=== PATIENT | female | born 1990 | race Caucasian/White ===

== ENCOUNTER 2017-12-14 10:12 | Inpatient (IN) ==
[2017-12-14] MEDS: Sod Chloride 0.9% Inj 1,000 ML IV.CONT SCH ×2 (10:30→16:43)
--- NOTE | 2017-12-14 10:36 | CT ---
EXAM DATE: 12/14/2017 10:21 AM EDT AGE/SEX: 27 years / Female INDICATIONS: Trauma. Head injury. Altered mental status. Slurred speech. Left side paralysis. CLINICAL DATA: This is the patient's initial encounter. Patient reports that signs and symptoms have been present for 1 day and indicates a pain score of Nonresponsive. MEDICAL/SURGICAL HISTORY: None. None. RADIATION DOSE: 57.14 CTDI (mGy) COMPARISON: No prior exams available for comparison. TECHNIQUE: CT of the head without contrast. Using automated exposure control and adjustment of the mA and/or kV according to patient size, radiation dose was kept as low as reasonably achievable to ob tain optimal diagnostic quality images. DICOM format image data is available electronically for revi ew and comparison. FINDINGS: CSF spaces, ventricles and cisterns are of normal size and configuration. No signs of intracranial he morrhage or mass. Hyperdense right middle cerebral artery sign identified. No fractures. CONCLUSION: 1. Hyperdense right middle cerebral artery identified concerning for right MCA occlusion. Can be fur ther evaluated with CT angiography of the head without contrast. 2. No hemorrhage or mass. . Electronically signed by: Isaiah Odonnell MD 12/14/2017 10:35 AM EDT
[2017-12-14] MEDS ORDERED: Alteplase Bolus 9 MG/9 ML Syringe IV.PUSH ONE (10:53)
[2017-12-14] MEDS ORDERED: ALTEPLASE DRIP IV.SIG ONE (10:53)
[2017-12-14 10:55] LABS: Baso % (Auto) 0.4 % (0.0-2.0); Eos # (Auto) 0.1 th/mm3 (0.0-0.4); Eos % (Auto) 2.4 % (0.0-4.0); Hematocrit 41.1 % (35.0-46.0); Hemoglobin 13.9 gm/dL (11.6-15.3); Lymph # (Auto) 2.3 th/mm3 (1.0-4.8); Lymph % (Auto) 38.8 % (9.0-44.0); Mean Corpuscular HGB Conc 33.8 % (32.0-36.0); Mean Corpuscular Hemoglobin 31.8 pg (27.0-34.0); Mean Corpuscular Volume 94.1 fL (80.0-100.0); Mean Platelet Volume 8.6 fL (7.0-11.0); Mono # (Auto) 0.4 th/mm3 (0.0-0.9); Mono % (Auto) 7.1 % (0.0-8.0); Neut % (Auto) 51.3 % (16.0-70.0); Platelet Count 324 th/mm3 (150-450); Red Blood Count 4.37 mil/mm3 (4.00-5.30); White Blood Count 5.8 th/mm3 (4.0-11.0)
[2017-12-14 10:59] LABS: Chloride 108 meq/L (98-107); Potassium 3.4 meq/L (3.5-5.1); Sodium 141 meq/L (136-145)
[2017-12-14 11:02] LABS: Calcium 8.4 mg/dL (8.5-10.1)
[2017-12-14 11:03] LABS: Anion Gap 9 meq/L (5-15); Blood Urea Nitrogen 10 mg/dL (7-18); Carbon Dioxide 23.7 meq/L (21.0-32.0); Glucose,Random 104 mg/dL (74-106)
[2017-12-14 11:06] LABS: Glomerular Filtration Rate Greater Than 89 mL/min (>89)
[2017-12-14 11:19] LABS: Creatine Kinase 63 U/L (26-192)
--- NOTE | 2017-12-14 11:27 | ED ---
HPI General Chief Complaint: Stroke Alert Stated Complaint: Hit head/neuro symptoms Time Seen by Provider: 12/14/17 10:19 Source: patient Mode of arrival: wheelchair Limitations: language barrier History of Present Illness HPI Narrative: 27 y/o female presents through triage with her significant other who states that approximately 30 minutes prior to arrival he was in the other room when he heard a thump he came in the room and she said she had a headache and she was having weakness so he brought her here. She currently has weakness to the entire left side of her body and cannot provide me with significant history but does state that her head hurts a little bit. She denies prior history of this. Related Data Home Medications Medication Instructions Recorded Confirmed levothyroxine [Synthroid] 50 mcg PO DAILY 12/14/17 12/14/17 Allergies Allergy/AdvReac Type Severity Reaction Status Date / Time No Allergy Information Allergy Verified 12/14/17 11:45 Available Review of Systems ROS: all other systems reviewed are negative PMFSH History History Provided By: Patient (Patient notes hypothyroidism, denies possibility of ) Medical History Medical History Hypothyroid (Acute) Social History Social History Substance History: No History of Abuse Second Hand Smoke Exposure: No Smoking Status: Never smoker How Often Do You Have a Drink Containing Alcohol: 2 to 4 times a month Recent Travel in [facility] within the Last 8 Weeks: No Recent Out of Country Travel within the Last 8 Weeks: No Exam Narrative Exam Narrative: GENERAL: 27 y/o female who appears to have difficulty coming up with words SKIN: Focused skin assessment warm/dry. HEAD: Atraumatic. Normocephalic. EYES: Pupils equal and round. No scleral icterus. No injection or drainage. ENT: No nasal bleeding or discharge. Mucous membranes pink and moist. NECK: Trachea midline. No JVD. CARDIOVASCULAR: Regular rate and rhythm. No murmur appreciated. RESPIRATORY: No accessory muscle use. Clear to auscultation. Breath sounds equal bilaterally. GASTROINTESTINAL: Abdomen soft, non-tender, nondistended MUSCULOSKELETAL: No obvious deformities. No clubbing. No cyanosis. No edema. NEUROLOGICAL: Awake and alert to name. Slurred speech, left pronator drift, unable to lift left leg off the bed Course Reevaluation(s) Reevaluation #1: CT brain shows hyperdense right MCA so patient consented to TPA which was confirmed with language line and another line was placed for coordination of CTA to check for interventional measures. Patient updated and agrees to plan Reevaluation #2: On reassessment patient's weakness is improving. Her initial stroke scale was 11. Her weakness to her left arm and leg are nearly resolved. She still has facial droop noted and intermittent difficulty with her speech Reevaluation #3: patient updated and agrees to transfer for intervention. Neurologist at bedside while giving this update Additional Reevaluation(s): evac here 1222 Consultations Consultation #1: dr estrada agrees to stroke workup and close monitoring Consultation #2: dr estrada agrees to stroke alert and tpa given ct head Consultation #3: dr agarwal states it appears she has an occlusion of 1 of her branch vessels of her right MCA and he will have 1 of the interventional specialist call me Additional Consultation(s): dr gutierres with IR states to send patient straight there for evaluation for intervention will admit with the icu team Initial Documented Vital Signs Temperature 97.9 F 12/14/17 10:21 Pulse Rate 82 12/14/17 10:21 Respiratory Rate 16 12/14/17 10:21 Blood Pressure 108/57 L 12/14/17 10:21 Pulse Oximetry 100 12/14/17 10:21 Last Documented Vital Signs Temperature 97.9 F 12/14/17 12:10 Pulse Rate 82 12/14/17 12:10 Respiratory Rate 16 12/14/17 12:10 Blood Pressure 108/57 L 12/14/17 12:10 Pulse Oximetry 100 12/14/17 12:10 Critical Care Time Critical Care Time: Yes Total Critical Care Time: 55 Attestation: Aggregate critical care time was 55 minutes. Time to perform other separately billable procedures was not included in the critical care time. My time did not include minutes spent treating any other patients simultaneously or on activities that did not directly contribute to the patient's treatment. The services I provided to this patient were to treat and/or prevent clinically significant deterioration that could result in: Stroke, bleed, I provided critical care services requiring my management, as noted below: Chart data review, documentation time, medication orders and management, vital sign assessments/reviewing monitor data, ordering and reviewing lab tests, ordering and interpreting/reviewing x-rays and diagnostic studies, care of the patient and discussion of the patient with the admitting physicians. NIH Stroke Scale NIH Stroke Scale Level of Consciousness: 0-Alert Orientation Questions: 0-Answers both correct Responds to Commands: 0-Both tasks correct Gaze Eye Movement: 0-Horizontal movement WNL Visual Mendez: 0-No visual field defect Facial Movement: 1-Minor facial palsy Motor Functions Arm LEFT: 0-No drift Motor Functions Arm RIGHT: 0-No drift Motor Functions Leg LEFT: 0-No drift Motor Functions Leg RIGHT: 0-No drift Limb Ataxia: 0-No ataxia Sensory Loss: 0-No sensory loss Best Language: 0-Normal Articulation: 0-Normal Extinction or Inattention Sensory: 0-Absent Total: 1 Medical Decision Making MDM Narrative Medical decision making narrative: Discussed with neurologist on-call and will check CT brain stat as well as CTAs and closely monitor Medical Screen Exam Complete: Yes Emergency Medical Condition: Yes Differential Diagnosis Differential Diagnosis: Subdural, Reuben's paralysis, stroke, bleed Lab Data Lab results reviewed: Yes I reviewed the patient's lab results. Result diagrams: 12/14/17 10:44 12/14/17 10:44 Lab Results 12/14/17 12/14/17 12/14/17 Range/Units 10:40 10:44 10:44 CBC w Diff Auto diff final WBC 5.8 (4.0-11.0) th/mm3 RBC 4.37 (4.00-5.30) mil/mm3 Hgb 13.9 (11.6-15.3) gm/dL Hct 41.1 (35.0-46.0) % MCV 94.1 (80.0-100.0) fL MCH 31.8 (27.0-34.0) pg MCHC 33.8 (32.0-36.0) % RDW 12.0 (11.6-17.2) % Plt Count 324 (150-450) th/mm3 MPV 8.6 (7.0-11.0) fL Neut % (Auto) 51.3 (16.0-70.0) % Lymph % (Auto) 38.8 (9.0-44.0) % [place] % (Auto) 7.1 (0.0-8.0) % Eos % (Auto) 2.4 (0.0-4.0) % Baso % (Auto) 0.4 (0.0-2.0) % Neut # (Auto) 3.0 (1.8-7.7) th/mm3 Lymph # (Auto) 2.3 (1.0-4.8) th/mm3 [place] # (Auto) 0.4 (0.0-0.9) th/mm3 Eos # (Auto) 0.1 (0.0-0.4) th/mm3 Baso # (Auto) 0.0 (0.0-0.2) th/mm3 WBC Differential . Differential Comment . Sodium 141 (136-145) meq/L Potassium 3.4 L (3.5-5.1) meq/L Chloride 108 H (98-107) meq/L Carbon Dioxide 23.7 (21.0-32.0) meq/L Anion Gap 9 (5-15) meq/L BUN 10 (7-18) mg/dL Creatinine 0.73 (0.50-1.00) mg/dL Estimated GFR Greater than 89 (>89) mL/min POC Glucose 108 (68-110) mg/dl Random Glucose 104 (74-106) mg/dL Calcium 8.4 L (8.5-10.1) mg/dL Total Creatine Kinase 63 (26-192) U/L Troponin I Less than 0.02 L (0.02-0.05) ng/mL TSH (0.358-3.740) uIU/mL Beta HCG, Quant Less than 1 (0-5) mIU/mL Serum Alcohol (0-5) mg/dL Blood Type Blood Type Recheck 12/14/17 12/14/17 Range/Units 10:44 10:44 CBC w Diff WBC (4.0-11.0) th/mm3 RBC (4.00-5.30) mil/mm3 Hgb (11.6-15.3) gm/dL Hct (35.0-46.0) % MCV (80.0-100.0) fL MCH (27.0-34.0) pg MCHC (32.0-36.0) % RDW (11.6-17.2) % Plt Count (150-450) th/mm3 MPV (7.0-11.0) fL Neut % (Auto) (16.0-70.0) % Lymph % (Auto) (9.0-44.0) % [place] % (Auto) (0.0-8.0) % Eos % (Auto) (0.0-4.0) % Baso % (Auto) (0.0-2.0) % Neut # (Auto) (1.8-7.7) th/mm3 Lymph # (Auto) (1.0-4.8) th/mm3 [place] # (Auto) (0.0-0.9) th/mm3 Eos # (Auto) (0.0-0.4) th/mm3 Baso # (Auto) (0.0-0.2) th/mm3 WBC Differential Differential Comment Sodium (136-145) meq/L Potassium (3.5-5.1) meq/L Chloride (98-107) meq/L Carbon Dioxide (21.0-32.0) meq/L Anion Gap (5-15) meq/L BUN (7-18) mg/dL Creatinine (0.50-1.00) mg/dL Estimated GFR (>89) mL/min POC Glucose (68-110) mg/dl Random Glucose (74-106) mg/dL Calcium (8.5-10.1) mg/dL Total Creatine Kinase (26-192) U/L Troponin I (0.02-0.05) ng/mL TSH 1.460 (0.358-3.740) uIU/mL Beta HCG, Quant (0-5) mIU/mL Serum Alcohol Less than 3 (0-5) mg/dL Blood Type A Negative Blood Type Recheck Required Imaging Data Attestation: I personally reviewed and interpreted this imaging study as follows : Radiologist's impression: Head CT 12/14/17 10:20 CONCLUSION: 1. Hyperdense right middle cerebral artery identified concerning for right MCA occlusion. Can be further evaluated with CT angiography of the head without contrast. 2. No hemorrhage or mass. . Chest X-Ray 12/14/17 10:21 CONCLUSION: Negative examination. Head CTA 12/14/17 10:21 CONCLUSION: Abrupt occlusion of proximal right MCA branch which does appear amenable to intra-arterial stroke treatment if clinically appropriate. Neck CTA 12/14/17 10:21 CONCLUSION: Negative CTA Carotid. Discharge Plan Discharge Disposition Patient Disposition: 30 Still Patient Discharge Details Diagnosis: Stroke Physicians Team ED Provider: Livier Alvares Primary Care Provider: NON STAFF,PROVIDER Other Providers: Glenn Estrada Rxs /Orders / Referrals /Forms Prescriptions: No Action levothyroxine [Synthroid] 50 mcg Tablet 50 mcg PO DAILY RF: 0 Status ED Status: Admitted Patient
--- NOTE | 2017-12-14 11:49 | CT ---
EXAM DATE: 12/14/2017 11:11 AM EDT AGE/SEX: 27 years / Female INDICATIONS: Stroke alert. Fell and hit head. Altered mental status. Left side paralysis. CLINICAL DATA: This is the patient's initial encounter. Patient reports that signs and symptoms have been present for 1 day and indicates a pain score of Nonresponsive. MEDICAL/SURGICAL HISTORY: None. None. RADIATION DOSE: 42.20 CTDI (mGy) ; Combined studies COMPARISON: HPO, CT HEAD W/O CONTRAST, 12/14/2017. . TECHNIQUE: Volumetric scanning was performed using a multi-row detector CT scanner during bolus infu samir of 100 ml Visipaque 320 (iodixanol) nonionic water-soluble contrast as a cumulative dose for mu ltiple exams. The data was post processed with a variety of visualization algorithms including full volume maximum intensity projection, multi-planar sliding thin slab reformation, curved planar refor mation, and surface rendering techniques. Using automated exposure control and adjustment of the mA and/or kV according to patient size, radiation dose was kept as low as reasonably achievable to obtai n optimal diagnostic quality images. DICOM format image data is available electronically for review and comparison. FINDINGS: There is abrupt amputation of an anterior sylvian branch of the right MCA just beyond the MCA bifurca tion. The contralateral left MCA is normal. The anterior cerebrals are intact and unremarkable. The p osterior circulation vessels are intact. CONCLUSION: Abrupt occlusion of proximal right MCA branch which does appear amenable to intra-arterial stroke eloisa atment if clinically appropriate. Electronically signed by: Manny Clark MD 12/14/2017 11:48 AM EDT
--- NOTE | 2017-12-14 11:49 | XR ---
EXAM DATE: 12/14/2017 10:21 AM EDT AGE/SEX: 27 years / Female INDICATIONS: Stroke alert, neuor symptoms, trauma to head. CLINICAL DATA: This is the patient's initial encounter. Patient reports that signs and symptoms have been present for 1 day and indicates a pain score of Nonresponsive. MEDICAL/SURGICAL HISTORY: Non-responsive. Non-responsive. COMPARISON: No prior exams available for comparison. FINDINGS: A single AP view of the chest demonstrates the lungs to be symmetrically aerated without evidence of mass, infiltrate or effusion. The cardiomediastinal contours are unremarkable. Osseous structures a re intact. CONCLUSION: Negative examination. Electronically signed by: Manny Calrk MD 12/14/2017 11:48 AM EDT
--- NOTE | 2017-12-14 11:56 | CT ---
EXAM DATE: 12/14/2017 11:11 AM EDT AGE/SEX: 27 years / Female INDICATIONS: Stroke alert. Fell and hit head. Altered mental status. Left side paralysis. CLINICAL DATA: This is the patient's initial encounter. Patient reports that signs and symptoms have been present for 1 day and indicates a pain score of Nonresponsive. MEDICAL/SURGICAL HISTORY: None. None. RADIATION DOSE: 42.20 CTDI (mGy) ; Combined studies COMPARISON: No prior exams available for comparison. TECHNIQUE: Volumetric scanning was performed using a multirow detector CT scanner during bolus infus ion of 100 ml Visipaque 320 (iodixanol) nonionic water-soluble contrast as a cumulative dose for mul tiple exams. The data was postprocessed with a variety of visualization algorithms including full-v olume maximum intensity projection, multiplanar sliding thin-slab reformation, curved-planar reformat ion, and surface-rendering techniques. Using automated exposure control and adjustment of the mA and /or kV according to patient size, radiation dose was kept as low as reasonably achievable to obtain o ptimal diagnostic quality images. DICOM format image data is available electronically for review and comparison. Percent stenosis is calculated using the diameter of the stenotic region over the diameter of the nor mal distal internal carotid artery. FINDINGS: Aortic Arch: There is a three-vessel origin of the great vessels from the aorta. No evidence of ost ial narrowing Right Carotid: The common carotid artery is intact. The carotid bulb has a normal configuration wit hout ulceration or narrowing. The internal carotid artery lumen is smooth without stenosis. The ext ernal carotid artery is intact. Left Carotid: The common carotid artery is intact. The carotid bulb has a normal configuration with out ulceration or narrowing. The internal carotid artery lumen is smooth without stenosis. The exte rnal carotid artery is intact. Vertebrals: The vertebral arteries have a symmetric diameter. No stenotic lesions are seen. CONCLUSION: Negative CTA Carotid. Electronically signed by: Manny Clark MD 12/14/2017 11:55 AM EDT
[2017-12-14 12:27] LABS: Activated Partial Thrombo Time 26.9 sec (24.3-30.1); Prothrombin Time 10.1 sec (9.8-11.6)
[2017-12-14 12:31] LABS: Albumin 3.3 g/dL (3.4-5.0)
[2017-12-14 12:35] LABS: Total Protein 7.3 g/dL (6.4-8.2)
[2017-12-14] MEDS ORDERED: Succinylcholine Inj 100 MG/5 ML Syringe IV.PUSH ONE (13:12)
[2017-12-14] MEDS ORDERED: Glycopyrrolate Inj 1 MG/5 ML Syringe IV.PUSH ONE (13:12)
[2017-12-14] MEDS ORDERED: Phenylephrine/NS 1000 MCG/10ML Syringe IV.PUSH ONE (13:12)
[2017-12-14] MEDS ORDERED: Lidocaine PF 1% Inj 5 ML Syringe OTHER ONE (13:12)
[2017-12-14] MEDS ORDERED: Neostigmine Inj 5 MG/5 ML Syringe IV.PUSH ONE (13:12)
--- NOTE | 2017-12-14 13:12 | P.CONNEU ---
History of Present Illness Service: Neurology Primary Care Provider: PROVIDER NON STAFF Chief Complaint: Weakness History of Present Illness: 27-year-old female brought in by her for left-sided weakness. She woke up normal state of health's texting a friend was in the kitchen when suddenly she went down and fell. He noticed left-sided weakness. He brought in for further evaluation. Her symptom onset was approximately 30 minutes prior to arrival. She had a CT brain scan performed which suggested a right hyperdense MCA sign. Case discussed with ER physician. She does not have left hemiparesis, left facial droop slurred speech in the ER. IV TPA was discussed with the spouse and patient they agree with treatment. No history of stroke or TIA. No history of clotting disorder. She does take oral contraceptive pills. Review of Systems All other systems reviewed negative except as stated in HPI PMFSH - History History Provided By: Patient (Patient notes hypothyroidism, denies possibility of ) - Medical History Medical History: Medical History (Last Updated 12/14/17 @ 11:59 by Marlene Zelaya RN) Hypothyroid - Tobacco History Second Hand Smoke Exposure: No Smoking Status: Never smoker - Alcohol History How Often Do You Have a Drink Containing Alcohol: 2 to 4 times a month - Substance Use History Substance History: No History of Abuse - Travel History Recent Travel in the [place] Within the Last 8 Weeks: No Recent Travel Out of the Country Within the Last 8 Weeks: No - Immunization History Tetanus Immunization: Unsure Medications and Allergies Active Medications: Active Medications Sodium Chloride (Ns Inj) 1,000 mls @ 70 mls/hr IV.CONT .[id number] MARKO Allergies Allergy/AdvReac Type Severity Reaction Status Date / Time No Allergy Information Allergy Verified 12/14/17 11:45 Available Home Medications Medication Instructions Recorded Confirmed Type levothyroxine [Synthroid] 50 mcg PO DAILY 12/14/17 12/14/17 History Exam Vital signs: Vital Signs 12/14/17 10:21 12/14/17 10:53 12/14/17 12:10 Temperature 97.9 F 97.9 F Pulse Rate 82 82 Respiratory Rate 16 16 Blood Pressure 108/57 L 108/57 L Pulse Oximetry 100 100 100 Intake & Output 12/13/17 12/14/17 12/14/17 18:59 06:59 18:59 Weight 78 kg Narrative: GENERAL: in NAD, SKIN: Warm and dry. HEAD: Atraumatic. Normocephalic. EYES: Pupils equal and round. No scleral icterus. ENT: No nasal bleeding or discharge. Mucous membranes pink and moist. NECK: Trachea midline. No JVD. CARDIOVASCULAR: Regular rate and rhythm. RESPIRATORY: No accessory muscle use. GASTROINTESTINAL: Abdomen soft, non-tender, nondistended. MUSCULOSKELETAL: Extremities without clubbing, cyanosis, or edema. No obvious deformities. NEUROLOGICAL: Awake and alert. Has been receiving IV TPA. Is now more alert dysarthric speech, able to follow motor request pleasant appropriate, slightly reduced left nasolabial fold, able raise her left arm and leg to gravity no drift in the arms slightly in the leg with slight left-sided dystaxia. Slight reduced pinprick left face and arm when compared to the right side, no obvious left-sided neglect. Gait not assessed secondary fall risk. PSYCHIATRIC: Calm - Constitutional no acute distress - Routine HEENT Exam Head: Present: normocephalic Results - Labs CBC & Chem 7: 12/14/17 10:44 12/14/17 10:44 Labs: Laboratory Results - last 24 hr 12/14/17 12/14/17 12/14/17 10:40 10:44 10:44 CBC w Diff Auto diff final WBC 5.8 RBC 4.37 Hgb 13.9 Hct 41.1 MCV 94.1 MCH 31.8 MCHC 33.8 RDW 12.0 Plt Count 324 MPV 8.6 Neut % (Auto) 51.3 Lymph % (Auto) 38.8 [place] % (Auto) 7.1 Eos % (Auto) 2.4 Baso % (Auto) 0.4 Neut # (Auto) 3.0 Lymph # (Auto) 2.3 [place] # (Auto) 0.4 Eos # (Auto) 0.1 Baso # (Auto) 0.0 WBC Differential . Differential Comment . PT 10.1 INR 1.0 APTT 26.9 Fibrinogen 318 Sodium Potassium Chloride Carbon Dioxide Anion Gap BUN Creatinine Estimated GFR POC Glucose 108 Random Glucose Calcium Total Bilirubin Direct Bilirubin Indirect Bilirubin AST ALT Alkaline Phosphatase Total Creatine Kinase Troponin I Total Protein Albumin TSH Beta HCG, Quant Serum Alcohol Blood Type Blood Type Recheck Antibody Screen 12/14/17 12/14/17 12/14/17 10:44 10:44 10:44 CBC w Diff WBC RBC Hgb Hct MCV MCH MCHC RDW Plt Count MPV Neut % (Auto) Lymph % (Auto) [place] % (Auto) Eos % (Auto) Baso % (Auto) Neut # (Auto) Lymph # (Auto) [place] # (Auto) Eos # (Auto) Baso # (Auto) WBC Differential Differential Comment PT INR APTT Fibrinogen Sodium 141 Potassium 3.4 L Chloride 108 H Carbon Dioxide 23.7 Anion Gap 9 BUN 10 Creatinine 0.73 Estimated GFR Greater than 89 POC Glucose Random Glucose 104 Calcium 8.4 L Total Bilirubin Direct Bilirubin Indirect Bilirubin AST ALT Alkaline Phosphatase Total Creatine Kinase 63 Troponin I Less than 0.02 L Total Protein Albumin TSH 1.460 Beta HCG, Quant Less than 1 Serum Alcohol Less than 3 Blood Type A Negative Blood Type Recheck Required Antibody Screen Negative 12/14/17 10:44 CBC w Diff WBC RBC Hgb Hct MCV MCH MCHC RDW Plt Count MPV Neut % (Auto) Lymph % (Auto) [place] % (Auto) Eos % (Auto) Baso % (Auto) Neut # (Auto) Lymph # (Auto) [place] # (Auto) Eos # (Auto) Baso # (Auto) WBC Differential Differential Comment PT INR APTT Fibrinogen Sodium Potassium Chloride Carbon Dioxide Anion Gap BUN Creatinine Estimated GFR POC Glucose Random Glucose Calcium Total Bilirubin 0.3 Direct Bilirubin 0.1 Indirect Bilirubin 0.2 AST 19 ALT 16 Alkaline Phosphatase 50 Total Creatine Kinase Troponin I Total Protein 7.3 Albumin 3.3 L TSH Beta HCG, Quant Serum Alcohol Blood Type Blood Type Recheck Antibody Screen - Imaging Impressions Head CT 12/14/17 10:20 CONCLUSION: 1. Hyperdense right middle cerebral artery identified concerning for right MCA occlusion. Can be further evaluated with CT angiography of the head without contrast. 2. No hemorrhage or mass. . Chest X-Ray 12/14/17 10:21 CONCLUSION: Negative examination. Head CTA 12/14/17 10:21 CONCLUSION: Abrupt occlusion of proximal right MCA branch which does appear amenable to intra-arterial stroke treatment if clinically appropriate. Neck CTA 12/14/17 10:21 CONCLUSION: Negative CTA Carotid. Review/Management - Diagnosis (1) Acute right MCA stroke Code(s): I63.511 - Cerebral infarction due to unspecified occlusion or stenosis of right middle cerebral artery Status: Acute Current Visit: Yes - Review/Management Plan: Acute right MCA stroke secondary to right MCA branch occlusion Risk factors include oral contraceptive use, may have an underlying hypercoagulable state versus cardiac defect And a stroke scale score 11 down to approximately 5 at present Recommendation She is being given IV TPA Case discussed with interventional radiology. Case discussed with patient and her spouse they would like full intervention performed as she is still not at her baseline they understand the risks and benefits of the procedures including bleeding, , worsening stroke function, etc. IV fluids Post TPA order set Blood pressure less than 180/100 at all times No blood thinners for at least 24 hours after intervention SCDs MRI, brain Echo Lipid, TSH, B12, HbA1c Therapy Telemetry Heme evaluation to exclude hypercoagulable state Cardiology evaluation for GELY, event monitor
[2017-12-14] MEDS ORDERED: Bisacodyl 10 MG Supp RECTAL PRN (13:34)
[2017-12-14] MEDS ORDERED: Labetalol HCl Inj 100 MG/20 ML Vial IV.PUSH PRN (13:36)
[2017-12-14] MEDS ORDERED: Heparin 10,000 UNITS/10 ML Vial (for IV use) ONE (14:31)
--- NOTE | 2017-12-14 14:46 | P.RAD ---
Post Procedure Progress Note - Pre Procedure Diagnosis (1) Acute right MCA stroke - Post Procedure Diagnosis (1) Acute right MCA stroke - Procedure Information Procedure Date: 12/14/17 Supervising Radiologist: Moi Barillas Jr, MD Estimated blood loss (mL): 10 Anesthesia: General - Plan of Activity Patient to Unit: PACU Patient Condition: Good See PACS Report for procedural detail/treatment. Vascular - Arterial Procedure right Cerebral Procedure: Angiogram, Embolectomy - Additional Information Findings: Acute occlusion of prox right M2 branch. Successful clot extraction with re- established flow thru the previously occluded [place] branch of right MCA. Plan: To unit for close observation.
[2017-12-14 15:07] LABS: Vitamin B12 407 pg/mL (193-986)
[2017-12-14 15:50] LABS: C-Reactive Protein 0.55 mg/dL (0.00-0.30)
--- NOTE | 2017-12-14 16:24 | P.HPCC ---
History of Present Illness Service: Critical care medicine Primary Care Physician: PROVIDER NON STAFF Chief Complaint: Weakness History of Present Illness: 27-year-old female who was brought to the ER at [place] by her with a history of headache and weakness involving the left side of her body about 30 minutes prior to arrival. Patient was diagnosed to have an ischemic stroke. Head CT was negative for bleed. CTA brain showed occluded right MCA. Stroke alert was called patient received IV TPA after discussion with Dr. Peter from neurology and was immediately transferred to the [facility] for IR intervention. In IR, patient underwent cerebral angiography and was found to have acute occlusion of prox right M2 branch. Successful clot extraction with re -established flow thru the previously occluded Chintan branch of right MCA. She was intubated for the procedure and was subsequently extubated successfully and transferred to PACU where I evaluated her following her arrival. At the time of my evaluation patient was awake and alert could give me her name and knew she that she was and knew the year 2017. She was following commands moving all 4 extremities with minimal weakness involving left upper and lower extremity. Patient reportedly is on oral contraceptive pills for the last 2 years per my discussion with patient's . She is also hypothyroid. Inpatient Certification: I certify that the inpatient services were ordered in accordance with Medicare regulations governing the order. This includes certification that hospital inpatient services are reasonable and necessary and in the case of services not specified as inpatient-only under 42 CFR 419.22(n), that they are appropriately provided as inpatient services in accordance to with the 2-midnight benchmark under 43 CFR 412.3(e) Estimated Total Length of Stay (Days): 4 Plans for Post Hospital Care: Not yet determined Review of Systems All other systems reviewed negative except as stated in HPI [facility] - History History Provided By: Patient (Patient notes hypothyroidism, denies possibility of ) - Medical History Medical History: Medical History (Last Updated 12/14/17 @ 11:59 by Marlene Zelaya RN) Hypothyroid - Tobacco History Second Hand Smoke Exposure: No Smoking Status: Never smoker - Alcohol History How Often Do You Have a Drink Containing Alcohol: 2 to 4 times a month - Substance Use History Substance History: No History of Abuse - Travel History Recent Travel in the [place] Within the Last 8 Weeks: No Recent Travel Out of the Country Within the Last 8 Weeks: No - Immunization History Tetanus Immunization: Unsure Medications and Allergies Active Medications: Active Medications Acetaminophen (Tylenol) 650 mg PO Q6H PRN PRN Reason: PAIN 1-10 AND/OR FEVER >101F Al Hydroxide/Mg Hydroxide (Milk Of Magnesia Liq) 30 ml PO Q12H PRN PRN Reason: Mild Constipation Albuterol (Duoneb Neb (Prn)) 1 ampul NEB Q2HR NEB PRN PRN Reason: WHEEZING Bisacodyl (Dulcolax Supp) 10 mg RECTAL DAILY PRN PRN Reason: SEVERE CONSITIPATION Chlorhexidine Gluconate (Chlorhexidine 2% Cloth) 3 pack TOPICAL DAILY@0400 MARKO Stop: 12/20/17 03:59 Chlorhexidine Gluconate (Chlorhexidine 2% Cloth) 3 pack TOPICAL DAILY@0400 PRN PRN Reason: Extra cloth needed Stop: 12/20/17 03:59 Famotidine (Pepcid Pf Inj) 20 mg IV.PUSH Q12HR MARKO Sodium Chloride (Ns Inj) 1,000 mls @ 70 mls/hr IV.CONT .[id number] [facility] Last Infusion: 12/14/17 12:30 Dose: Infused Labetalol HCl (Trandate Inj) 10 mg IV.PUSH Q4H PRN PRN Reason: SBP> OR = 180, DBP> OR = 100 Lactulose (Lactulose Liq) 30 ml PO DAILY PRN PRN Reason: SEVERE CONSITIPATION Ondansetron HCl (Zofran Inj) 4 mg IV.PUSH Q6H PRN PRN Reason: NAUSEA OR VOMITING Senna/Docusate Sodium (Khadra-Colace) 1 tab PO BID [facility] Sennosides (Senokot) 17.2 mg PO Q12H PRN PRN Reason: Moderate Constipation Sodium Chloride (Ns Flush) 2 ml IV.FLUSH BID MARKO Sodium Chloride (Ns Flush) 2 ml IV.FLUSH PRN PRN PRN Reason: FLUSH AFTER USING IV ACCESS Allergies Allergy/AdvReac Type Severity Reaction Status Date / Time No Allergy Information Allergy Verified 12/14/17 11:45 Available Home Medications Medication Instructions Recorded Confirmed Type levothyroxine [Synthroid] 50 mcg PO DAILY 12/14/17 12/14/17 History Results - Labs CBC & Chem 7: 12/14/17 10:44 12/14/17 10:44 Labs: Short CBC 12/14/17 Range/Units 10:44 WBC 5.8 (4.0-11.0) th/mm3 Hgb 13.9 (11.6-15.3) gm/dL Hct 41.1 (35.0-46.0) % Plt Count 324 (150-450) th/mm3 BMP 12/14/17 10:44 Sodium 141 Potassium 3.4 L Chloride 108 H Carbon Dioxide 23.7 BUN 10 Creatinine 0.73 Calcium 8.4 L Cardiac Enzymes 12/14/17 Range/Units 10:44 Total Creatine Kinase 63 (26-192) U/L Troponin I Less than 0.02 L (0.02-0.05) ng/mL Liver Function 12/14/17 Range/Units 10:44 Total Bilirubin 0.3 (0.2-1.0) mg/dL Direct Bilirubin 0.1 (0.0-0.2) mg/dL AST 19 (15-37) U/L ALT 16 (10-53) U/L Alkaline Phosphatase 50 (45-117) U/L Albumin 3.3 L (3.4-5.0) g/dL - Imaging Impressions Head CT 12/14/17 10:20 CONCLUSION: 1. Hyperdense right middle cerebral artery identified concerning for right MCA occlusion. Can be further evaluated with CT angiography of the head without contrast. 2. No hemorrhage or mass. . Chest X-Ray 12/14/17 10:21 CONCLUSION: Negative examination. Head CTA 12/14/17 10:21 CONCLUSION: Abrupt occlusion of proximal right MCA branch which does appear amenable to intra-arterial stroke treatment if clinically appropriate. Neck CTA 12/14/17 10:21 CONCLUSION: Negative CTA Carotid. Exam Vital signs: Vital Signs 12/14/17 10:21 12/14/17 10:53 12/14/17 12:10 Temperature 97.9 F 97.9 F Pulse Rate 82 82 Respiratory Rate 16 16 Blood Pressure 108/57 L 108/57 L Pulse Oximetry 100 100 100 Intake & Output 12/13/17 12/14/17 12/14/17 18:59 06:59 18:59 Intake Total 195 / 195 Balance 195 / 195 Weight 78 kg Intake: IV 195 / 195 NS Inj 1,000 ML @ 70 mls/hr IV. 140 / 140 CONT .[id number] [facility] Rx#: [id number] Activase Drip 55 MG In Bag/ 55 / 55 Syringe 1 EACH @ 55 mls/hr IV. SIG ONCE ONE Rx#:[id number] Narrative: HEENT/Neuro: No pallor or icterus, tongue moist, ALLEN, Awake alert oriented 3 , moving all 4 extremities, grade 4 power in left upper and lower extremity. Neck: No JVD Chest/pulmonary: CTA bilaterally Cardiovascular: S1-S2 regular no gallop or murmur GI/abdomen: Soft, nontender, bowel sounds present Extremities: Warm bilaterally, no edema Caprini VTE Risk Assessment Caprini VTE Risk Assessment: Moderate/High Risk (score >= 2) Caprini Risk Assessment Model: Point Value = 1 Point Value = 2 Point Value = 3 Point Value = 5 Age 41-60 Minor surgery BMI > 25 kg/m2 Swollen legs Varicose veins or History of unexplained or recurrent spontaneous Oral contraceptives or hormone replacement Sepsis (< 1 month) Serious lung disease, including pneumonia (< 1 month) Abnormal pulmonary function Acute myocardial infarction Congestive heart failure (< 1 month) History of inflammatory bowel disease Medical patient at bed rest Age 61-74 Arthroscopic surgery Major open surgery (> 45 min) Laparoscopic surgery (> 45 min) Malignancy Confined to bed (> 72 hours) Immobilizing plaster cast Central venous access Age >= 75 History of VTE Family history of VTE Factor V Leiden Prothrombin [id number] Lupus anticoagulant Anticardiolipin antibodies Elevated serum homocysteine Heparin-induced thrombocytopenia Other congenital or acquired thrombophilia Stroke (< 1 month) Elective arthroplasty Hip, pelvis, or leg fracture Acute spinal cord injury (< 1 month) Prophylaxis Regimen: Total Risk Factor Score Risk Level Prophylaxis Regimen 0-1 Low Early ambulation 2 Moderate Order ONE of the following: *Sequential Compression Device (SCD) *Heparin 5000 units SQ BID 3-4 Higher Order ONE of the following medications: *Heparin 5000 units SQ TID *Enoxaparin/Lovenox 40 mg SQ daily (WT < 150 kg, CrCl > 30 mL/min) *Enoxaparin/Lovenox 30 mg SQ daily (WT < 150 kg, CrCl > 10-29 mL/min) *Enoxaparin/Lovenox 30 mg SQ BID (WT < 150 kg, CrCl > 30 mL/min) AND/OR *Sequential Compression Device (SCD) 5 or more Highest Order ONE of the following medications: *Heparin 5000 units SQ TID (Preferred with Epidurals) *Enoxaparin/Lovenox 40 mg SQ daily (WT < 150 kg, CrCl > 30 mL/min) *Enoxaparin/Lovenox 30 mg SQ daily (WT < 150 kg, CrCl > 10-29 mL/min) *Enoxaparin/Lovenox 30 mg SQ BID (WT < 150 kg, CrCl > 30 mL/min) AND *Sequential Compression Device (SCD) Assessment and Plan - Assessment and Plan Plan: 27-year-old female with: Ischemic stroke involving right MCA territory status post systemic TPA followed by embolectomy right MCA Hypothyroidism Plan: Neuro: Neuro checks per protocol. Stroke alert status mood systolic TPA followed by angioplasty and embolectomy right MCA territory. Neurology following. Stroke workup per neurology. Thromboembolic event possibly related to OCP use. Cardiology consulted for further evaluation including echo for PFO eval, possible GELY. -We will obtain lower extremity venous Dopplers to evaluate for DVT. Cardiovascular: Hemodynamic monitoring. Keep SBP below 180/100 with labetalol as needed. IV hydration Pulmonary: Supplemental O2, bronchodilators as needed. GI/liver: N.p.o. for now. Speech swallow eval per stroke protocol. Renal/: IV hydration, strict intake output, monitor and replete electrolytes, follow BUN/creatinine. ID: No indication for antibiotics at this time. Endocrine: Watch for hypoglycemia, SSI for glycemic control if needed. Continue home dose of Synthroid. Heme: Follow CBC and coags. Hematology consult for hypercoagulable workup. Thromboembolic event possibly related to OCP use. Keep off oral contraceptives/ Prophylaxis: Pepcid/SCDs. Subcu Lovenox started tomorrow if okay with neurology.
--- NOTE | 2017-12-14 16:46 | IR ---
EXAM DATE: 12/14/2017 11:43 AM EDT AGE/SEX: 27 years / Female INDICATIONS: Patient presents as stroke alert in need of cerebral angiogram with possible intracrani al thrombectomy. CLINICAL DATA: This is the patient's initial encounter. Patient reports that signs and symptoms have been present for 1 day and indicates a pain score of 0/10. MEDICAL/SURGICAL HISTORY: . Unobtainable. . Unobtainable. Patient is confused. Reduced motor f unction involving the left upper extremity. COMPARISON: . FLUORO TIME (min): 13.8 IMAGE SERIES: 18 ACCESS SITE: Right femoral artery CONTRAST (cc): 65 cc Visipaque (iodixanol) MEDICATION(S): 2,000 units Heparin IV 4 mg Zofran Anesthesia and pain control was provided by the Anesthesia department. DEVICE(S): Right common femoral artery Angio-Seal 8fr Right artery mechanical thrombectomy MCA PAUL 60 Right artery MCA Solitaire 06/15 . . TIMELINE: Interventional Team Called: 11:50 Interventional Team Arrived: Interventional Team Ready 11:55 Patient Arrival: 12:55 Groin Puncture: 13:21 Recanalization: 14:19 PROCEDURE : 1. Ultrasound-guided puncture of the access site. 2. Angiography of the access site prior to closure device. 3. Conscious sedation with continuous EKG and Oximetry monitoring. 4. Percutaneous closure of the access site. 5. Angiography of the right internal carotid artery 6. Angiography of the M2 sylvian branch of the right MCA 7. Embolectomy of the M2 sylvian branch of the right MCA. The risks, benefits and alternatives to the procedure were explained and verbal and written consent w as obtained. The site was prepped in sterile fashion. Full sterile technique was used, including cap, mask, sterile gloves and gown and a large sterile sheet. Hand hygiene and 2% chlorhexidine and/or be tadine/alcohol prep was utilized per protocol for cutaneous antisepsis. The skin and subcutaneous tis sues were infiltrated with local anesthetic solution. Sterile gel and sterile probe cover were utili zed for ultrasound guidance. With ultrasound and fluoroscopic guidance the selected artery was punctured and a vascular sheath was placed. Angiography of the common femoral artery was performed for evaluation prior to percutaneous closure device placement. A diagnostic catheter was placed into the right internal carotid artery and angiography was performed over the head to confirm vessel occlusion. These diagnostic images show a patent M1 on the right wit h complete occlusion of the sylvian branch of the M2 on the right. Subsequent to this a guidewire was placed into the distal cervical internal carotid artery and a guide catheter was placed to the level of the skull base. A solitaire atherectomy device was needed to anchor the wire to allow passage of the embolectomy catheter to the face of the clot. Suction was performed for 90 seconds. With suction still applied the catheter was removed in one piece. Followup angiography demonstrates lack of of flow with TICI 0 flow. Thrombus also fell into the dist al M1 branch occluding the majority of the middle cerebral territory. As thrombus persisted the large bore microcatheter was again advanced to the face of the clot over a guidewire. The microcatheter and wire were passed through the thrombus distally and the guidewire was exchanged for the prescribed Solitaire device. The device was unsheathed and left in place for 5 min utes. Following this suction was applied and the microcatheter and Solitaire device were removed as a unit. Followup angiography demonstrates taoism of flow with TICI grade 3 flow. Hemostasis was obtained with the prescribed medicated closure device. Conscious sedation was performe d with the prescribed dosages and duration as above. EKG and oximetry remained stable throughout the procedure. The patient was sent to post anesthesia recovery in stable condition. CONCLUSION: 1. Cerebral angiography confirms complete occlusion of an M2 branch of the right MCA territory. Comp lete taoism of flow through this vessel following suction thrombectomy. TICI grade 3. Electronically signed by: Moi Barillas MD 12/14/2017 4:45 PM EDT
[2017-12-14] MEDS: Acetaminophen 325 MG Tablet PO PRN ×2 (18:04→23:46)
--- NOTE | 2017-12-14 18:17 | P.CONCA ---
History of Present Illness Service: Cardiology Consult date: 12/14/17 Requesting Physician: Glenn Peter Reason for Consult: GELY, event monitoring. Young onset stroke Primary Care Provider: PROVIDER NON STAFF Chief Complaint: Weakness History of Present Illness: This is a very pleasant 27-year-old female who was brought into the emergency department by her with a history of headache and weakness involving left side of her body that started approximately 30 minutes prior to arrival. CT of the brain showed occluded right MCA and stroke alert was called. TPA was administered per Dr. Peter from neurology. IR intervention, cerebral angiogram was performed and she was found to have an acute occlusion of proximal right M2 branch. Clot extraction was successful and flow was reestablished to the previous occluded Chintan branch of the right MCA. She currently denies any chest pain, pressure, palpitations, dizziness or shortness of breath. She does complain of a right-sided headache. Review of Systems All other systems reviewed negative except as stated in HPI [facility] - History History Provided By: Patient, Family Member - Medical History Medical History: Medical History (Last Updated 12/14/17 @ 11:59 by Marlene Zelaya RN) Hypothyroid - Tobacco History Second Hand Smoke Exposure: No Smoking Status: Never smoker - Alcohol History How Often Do You Have a Drink Containing Alcohol: 2 to 4 times a month - Substance Use History Substance History: No History of Abuse - Travel History Recent Travel in the [place] Within the Last 8 Weeks: No Recent Travel Out of the Country Within the Last 8 Weeks: No - Immunization History Tetanus Immunization: Unsure Hx Influenza Vaccine This Season: No Medications and Allergies Allergies Allergy/AdvReac Type Severity Reaction Status Date / Time aspirin Allergy Swelling Verified 12/14/17 18:43 Home Medications Medication Instructions Recorded Confirmed Type levothyroxine [Synthroid] 50 mcg PO DAILY 12/14/17 12/14/17 History Active Medications: Active Medications Acetaminophen (Tylenol) 650 mg PO Q6H PRN PRN Reason: PAIN 1-10 AND/OR FEVER >101F Last Admin: 12/14/17 18:04 Dose: 650 mg Al Hydroxide/Mg Hydroxide (Milk Of Magnesia Liq) 30 ml PO Q12H PRN PRN Reason: Mild Constipation Albuterol (Duoneb Neb (Prn)) 1 ampul NEB Q2HR NEB PRN PRN Reason: WHEEZING Bisacodyl (Dulcolax Supp) 10 mg RECTAL DAILY PRN PRN Reason: SEVERE CONSITIPATION Chlorhexidine Gluconate (Chlorhexidine 2% Cloth) 3 pack TOPICAL DAILY@0400 MARKO Stop: 12/20/17 03:59 Chlorhexidine Gluconate (Chlorhexidine 2% Cloth) 3 pack TOPICAL DAILY@0400 PRN PRN Reason: Extra cloth needed Stop: 12/20/17 03:59 Famotidine (Pepcid Pf Inj) 20 mg IV.PUSH Q12HR [facility] Sodium Chloride (Ns Inj) 1,000 mls @ 70 mls/hr IV.CONT .[id number] [facility] Last Admin: 12/14/17 16:43 Dose: 70 mls/hr Labetalol HCl (Trandate Inj) 10 mg IV.PUSH Q4H PRN PRN Reason: SBP> OR = 180, DBP> OR = 100 Lactulose (Lactulose Liq) 30 ml PO DAILY PRN PRN Reason: SEVERE CONSITIPATION Ondansetron HCl (Zofran Inj) 4 mg IV.PUSH Q6H PRN PRN Reason: NAUSEA OR VOMITING Senna/Docusate Sodium (Khadra-Colace) 1 tab PO BID [facility] Sennosides (Senokot) 17.2 mg PO Q12H PRN PRN Reason: Moderate Constipation Sodium Chloride (Ns Flush) 2 ml IV.FLUSH BID [facility] Sodium Chloride (Ns Flush) 2 ml IV.FLUSH PRN PRN PRN Reason: FLUSH AFTER USING IV ACCESS Exam Vital signs: Vital Signs 12/14/17 10:21 12/14/17 10:53 12/14/17 12:10 Temperature 97.9 F 97.9 F Pulse Rate 82 82 Respiratory Rate 16 16 Blood Pressure 108/57 L 108/57 L Pulse Oximetry 100 100 100 12/14/17 15:00 12/14/17 15:15 12/14/17 15:30 Temperature 97.5 F L Pulse Rate 87 92 H 92 H Respiratory Rate 18 17 18 Blood Pressure 97/49 L 99/53 L 98/55 L Pulse Oximetry 100 100 100 12/14/17 16:00 12/14/17 16:47 Temperature 97.5 F L Pulse Rate 87 88 Respiratory Rate 11 L Blood Pressure 104/54 L Pulse Oximetry 100 Intake & Output 12/13/17 12/14/17 12/14/17 18:59 06:59 18:59 Intake Total Balance Weight 76.3 kg Intake: IV NS Inj 1,000 ML @ 70 mls/hr IV. 140 / 140 CONT .[id number] [facility] Rx#: [id number] Activase Drip 55 MG In Bag/ 55 / 55 Syringe 1 EACH @ 55 mls/hr IV. SIG ONCE ONE Rx#:[id number] Other: Weight On Admission 76.3 kg - Constitutional no acute distress - Routine HEENT Exam Head: Present: normocephalic Eye: Present: PERRL ENT: Present: mucous membranes moist - Routine Neck Exam Present: full ROM - Routine Respiratory Exam Present: CTA bilaterally - Routine Cardiovascular Exam Present: S1, S2. Absent: murmur, gallop, rubs - Routine Abdominal Exam Present: normoactive bowel sounds - Routine Extremities Exam Present: full ROM, pulses intact. Absent: cyanosis, clubbing, edema Comments: Mild left sided weakness that is improving - Routine Skin Exam Present: intact. Absent: cyanosis, erythema, dry, pallor - Routine Neurological Exam Present: oriented X3 Results 12/14/17 10:44 12/14/17 10:44 Cardiac Enzymes 12/14/17 12/14/17 Range/Units 10:44 10:44 AST 19 (15-37) U/L Troponin I Less than 0.02 L (0.02-0.05) ng/mL Coagulation 12/14/17 Range/Units 10:44 PT 10.1 (9.8-11.6) sec APTT 26.9 (24.3-30.1) sec CBC 12/14/17 Range/Units 10:44 WBC 5.8 (4.0-11.0) th/mm3 RBC 4.37 (4.00-5.30) mil/mm3 Hgb 13.9 (11.6-15.3) gm/dL Hct 41.1 (35.0-46.0) % Plt Count 324 (150-450) th/mm3 Neut # (Auto) 3.0 (1.8-7.7) th/mm3 Lymph # (Auto) 2.3 (1.0-4.8) th/mm3 Antelope # (Auto) 0.4 (0.0-0.9) th/mm3 Eos # (Auto) 0.1 (0.0-0.4) th/mm3 Baso # (Auto) 0.0 (0.0-0.2) th/mm3 Comprehensive Metabolic Panel 12/14/17 12/14/17 Range/Units 10:44 10:44 Sodium 141 (136-145) meq/L Potassium 3.4 L (3.5-5.1) meq/L Chloride 108 H (98-107) meq/L Carbon Dioxide 23.7 (21.0-32.0) meq/L BUN 10 (7-18) mg/dL Creatinine 0.73 (0.50-1.00) mg/dL Calcium 8.4 L (8.5-10.1) mg/dL Direct Bilirubin 0.1 (0.0-0.2) mg/dL Indirect Bilirubin 0.2 (0.0-0.8) mg/dL AST 19 (15-37) U/L ALT 16 (10-53) U/L Alkaline Phosphatase 50 (45-117) U/L Total Protein 7.3 (6.4-8.2) g/dL Albumin 3.3 L (3.4-5.0) g/dL Intake and Output 12/14/17 12/14/17 12/14/17 06:59 14:59 22:59 Intake Total 195 / 195 Balance 195 / 195 Intake: IV 195 / 195 NS Inj 1,000 ML @ 70 mls/hr IV. 140 / 140 CONT .[id number] [facility] Rx#: [id number] Activase Drip 55 MG In Bag/ 55 / 55 Syringe 1 EACH @ 55 mls/hr IV. SIG ONCE ONE Rx#:[id number] Other: Weight 78 kg 76.3 kg Weight On Admission 76.3 kg Patient Weight 12/15/17 06:59 Weight 76.3 kg - Imaging and Cardiology Imaging: Impressions Head CT 12/14/17 10:20 CONCLUSION: 1. Hyperdense right middle cerebral artery identified concerning for right MCA occlusion. Can be further evaluated with CT angiography of the head without contrast. 2. No hemorrhage or mass. . Chest X-Ray 12/14/17 10:21 CONCLUSION: Negative examination. Head CTA 12/14/17 10:21 CONCLUSION: Abrupt occlusion of proximal right MCA branch which does appear amenable to intra-arterial stroke treatment if clinically appropriate. Neck CTA 12/14/17 10:21 CONCLUSION: Negative CTA Carotid. Cerebral Angiography 12/14/17 11:43 CONCLUSION: 1. Cerebral angiography confirms complete occlusion of an M2 branch of the right MCA territory. Complete gnosticism of flow through this vessel following suction thrombectomy. TICI grade 3. Assessment and Plan - Assessment (1) Stroke Code(s): I63.9 - Cerebral infarction, unspecified Status: Acute (2) Acute right MCA stroke Code(s): I63.511 - Cerebral infarction due to unspecified occlusion or stenosis of right middle cerebral artery Status: Acute - Plan Patient currently in sinus rhythm and vital signs are stable. We will schedule a GELY on Sunday. We will get a 2D echo to evaluate left ventricular function. Continue to monitor patient on telemetry. Patient seen and evaluated by Dr. Welch who participated in care, management and decision-making. - Attending Attestation Patient seen and examined. I reviewed and agree with the evaluation and plan as presented. Monitor on tele. Will schedule GELY on Sun. (1) Stroke Qualifiers: CVA mechanism: occlusion Precerebral and cerebral artery: middle cerebral artery Laterality of affected vessel: right Qualified Code(s): I63.511 - Cerebral infarction due to unspecified occlusion or stenosis of right middle cerebral artery
[2017-12-14] MEDS: Famotidine PF Inj 20 MG/2 ML Vial IV.PUSH SCH (20:25)
[2017-12-14] MEDS: Senna/Docusate Sodium 8.6/50 MG Tablet PO SCH (20:26)
--- NOTE | 2017-12-14 20:38 | ECHRPT ---
Indication: CVA/TIA CONCLUSIONS Normal left ventricular size. Wall thickness is normal. The left ventricular systolic function is normal with an estimated ejection fraction in the range of 60-65%. There is trace tricuspid valve regurgitation. Mild pulmonary valve regurgitation. BP: / HR: Rhythm: Technical Quality:Fair FINDINGS LEFT VENTRICLE Normal left ventricular size. Wall thickness is normal. The left ventricular systolic function is normal with an estimated ejection fraction in the range of 60-65%. RIGHT VENTRICLE Normal right ventricular size and systolic function. LEFT ATRIUM The left atrial size is normal. RIGHT ATRIUM The right atrial size is normal. ATRIAL SEPTUM Normal atrial septal thickness without atrial level shunting by limited color doppler interrogation. AORTA The aortic root and proximal ascending aorta are normal in size on limited imaging. MITRAL VALVE Structurally normal mitral valve. No mitral valve stenosis or regurgitation. AORTIC VALVE Trileaflet aortic valve. TRICUSPID VALVE There is trace tricuspid valve regurgitation. PULMONARY VALVE Mild pulmonary valve regurgitation. VESSELS The inferior vena cava is normal in size. PERICARDIUM No pericardial effusion. Aspen Welch MD, FACC (Electronically Signed) Final Date:14 December 2017 20:37
--- NOTE | 2017-12-14 20:56 | ECG ---
Date Performed: 12/14/2017 Time Performed: 10:58:30 PTAGE: 27 years EKG: Sinus rhythm NORMAL ECG NO PREVIOUS TRACING DOCTOR: Krishna Reddy Interpretating Date/Time 12/14/2017 20:55:24
--- NOTE | 2017-12-14 22:50 | US ---
EXAM DATE: 12/14/2017 12:00 AM EDT AGE/SEX: 27 years / Female INDICATIONS: Bilateral leg selling. CLINICAL DATA: This is the patient's initial encounter. Patient reports that signs and symptoms have been present for 1 day and indicates a pain score of 3/10. MEDICAL/SURGICAL HISTORY: Hypothyroidism. None. COMPARISON: No prior exams available for comparison. TECHNIQUE: Venous ultrasound of both lower extremities was performed from the inguinal ligament to t he proximal calf. Real-time, color Doppler and spectral tracing, compression and augmentation techni ques were used. FINDINGS: Right Leg: Normal compression of the deep venous system from the inguinal region to the proximal soni f. No echogenic clot is seen. Normal response of the venous system to augmentation and respiration. Left Leg: Normal compression of the deep venous system from the inguinal region to the proximal calf . No echogenic clot is seen. Normal response of the venous system to augmentation and respiration. Other: None. CONCLUSION: 1. The study is negative for bilateral lower extremity deep venous thrombosis. Electronically signed by: Demetrio Stevenson MD 12/14/2017 10:49 PM EDT
[2017-12-15] MEDS ORDERED: Chlorhexidine Gluconate 2% 1 Pack (2 Cloths) TOPICAL PRN (04:00)
[2017-12-15] MEDS: Chlorhexidine Gluconate 2% 1 Pack (2 Cloths) TOPICAL SCH (05:22)
[2017-12-15] MEDS: Sod Chloride 0.9% Inj 1,000 ML IV.CONT SCH ×2 (07:12→20:45)
[2017-12-15] MEDS: Senna/Docusate Sodium 8.6/50 MG Tablet PO SCH ×2 (08:20→20:44)
[2017-12-15] MEDS: Famotidine PF Inj 20 MG/2 ML Vial IV.PUSH SCH ×2 (08:20→20:44)
[2017-12-15] MEDS: Acetaminophen 325 MG Tablet PO PRN (08:20)
--- NOTE | 2017-12-15 09:12 | P.PNCC ---
Subjective Subjective Remarks/Hospital Course: 27-year-old female who was brought to the ER at [place] by her with a history of headache and weakness involving the left side of her body about 30 minutes prior to arrival. Patient was diagnosed to have an ischemic stroke. Head CT was negative for bleed. CTA brain showed occluded right MCA. Stroke alert was called patient received IV TPA after discussion with Dr. Peter from neurology and was immediately transferred to the main hospital for IR intervention. In IR, patient underwent cerebral angiography and was found to have acute occlusion of prox right M2 branch. Successful clot extraction with re -established flow thru the previously occluded Chintan branch of right MCA. She was intubated for the procedure and was subsequently extubated successfully and transferred to PACU where I evaluated her following her arrival. At the time of my evaluation patient was awake and alert could give me her name and knew she that she was and knew the year 2017. She was following commands moving all 4 extremities with minimal weakness involving left upper and lower extremity. Patient reportedly is on oral contraceptive pills for the last 2 years per my discussion with patient's . She is also hypothyroid. Subjective: 12/15 Today complaining of right flank pain radiating to right abdomen. No significant groin hematoma. BP and heart rate normal. Wants to eat. Her significant other is at bedside and states her speech is improved and overall L hemiparesis improved since presentation. TTE shows no thrombus, BLE negative for DVT. Plan for GELY on Sunday 12/17. Objective Vital Signs / I&O: Vital Signs 12/14/17 10:21 12/14/17 10:53 12/14/17 12:10 Temperature 97.9 F 97.9 F Pulse Rate 82 82 Respiratory Rate 16 16 Blood Pressure 108/57 L 108/57 L Pulse Oximetry 100 100 100 12/14/17 15:00 12/14/17 15:15 12/14/17 15:30 Temperature 97.5 F L Pulse Rate 87 92 H 92 H Respiratory Rate 18 17 18 Blood Pressure 97/49 L 99/53 L 98/55 L Pulse Oximetry 100 100 100 12/14/17 16:00 12/14/17 16:47 12/14/17 18:00 Temperature 97.5 F L Pulse Rate 87 88 88 Respiratory Rate 11 L Blood Pressure 104/54 L Pulse Oximetry 100 12/14/17 18:34 12/14/17 18:57 12/14/17 20:00 Temperature 98.7 F Pulse Rate 93 H Respiratory Rate 16 14 Blood Pressure 99/54 L Pulse Oximetry 99 98 12/14/17 22:00 12/15/17 00:00 12/15/17 02:00 Temperature 98.3 F Pulse Rate 82 88 70 Respiratory Rate 13 Blood Pressure 99/55 L Pulse Oximetry 98 12/15/17 04:00 12/15/17 06:00 12/15/17 09:11 Temperature 98.5 F Pulse Rate 46 L 96 H Respiratory Rate 16 Blood Pressure 101/53 L Pulse Oximetry 97 100 Intake & Output 12/14/17 12/15/17 12/15/17 18:59 06:59 18:59 Intake Total 195 / 195 120 / 120 1000 / 1000 Output Total 775 / 775 Balance 195 / 195 -655 / -655 1000 / 1000 Weight 76.3 kg 81.9 kg Intake: IV 195 / 195 1000 / 1000 NS Inj 1,000 ML @ 70 mls/hr IV. 140 / 140 1000 / 1000 CONT .[id number] [facility] Rx#: [id number] Activase Drip 55 MG In Bag/ 55 / 55 Syringe 1 EACH @ 55 mls/hr IV. SIG ONCE ONE Rx#:[id number] Oral 120 / 120 Output: Urine 775 / 775 Other: # Voids 1 # Bowel Movements 0 Weight On Admission 76.3 kg Result Diagrams: 12/19/17 06:02 12/19/17 06:02 Objective Remarks: GENERAL: Well-nourished, well-developed patient who is laying flat in ISC bed. SKIN: Warm and dry. HEAD: Atraumatic. Normocephalic. EYES: Pupils equal and round. No scleral icterus. No injection or drainage. ENT: No nasal bleeding or discharge. Mucous membranes pink and moist. NECK: Trachea midline. No JVD. CARDIOVASCULAR: Regular rate and rhythm. No murmurs rubs or gallops. RESPIRATORY: No accessory muscle use. Clear to auscultation. Breath sounds equal bilaterally. On RA. GASTROINTESTINAL: Abdomen soft, tender RLQ and right flank. No flank ecchymosis. Bowel sounds present. Dressing in place right groin, groin is tende.r MUSCULOSKELETAL: Extremities without clubbing, cyanosis, or edema. No obvious deformities. No calf tenderness. NEUROLOGICAL: Awake and alert. No obvious cranial nerve deficits. strength 5/5 R side. 4/5 L biceps/triceps/hip flexor/hamstring/ankle plantar and dorsiflexion. Speech appears normal. Assessment and Plan - Problem List (1) Acute right MCA stroke Code(s): I63.511 - Cerebral infarction due to unspecified occlusion or stenosis of right middle cerebral artery Status: Acute (2) Hypothyroidism Code(s): E03.9 - Hypothyroidism, unspecified Status: Chronic (3) Flank pain Code(s): R10.9 - Unspecified abdominal pain Status: Acute - Assessment and Plan Plan: 27-year-old female with: Ischemic stroke involving right MCA territory status post systemic TPA followed by embolectomy right MCA Hypothyroidism Plan: Neuro: Acute ischemic R MCA stroke Neuro checks per protocol. Stroke alert status post systemic TPA followed by angioplasty and embolectomy right MCA territory. Neurology following. TTE negative for thrombus, cardiology planning to perform GELY on Sunday. Hematology eval as per below. MRI later today. Cardiovascular: Hemodynamic monitoring. Keep SBP below 180/105 with labetalol as needed. IV hydration NS 70/hr. Back and flank pain may be secondary to RP hemorrhage. She appears hemodynamically stable, f/u hgb. F/u CT abd/pelvis and u/s to eval pseudoaneurysm. Pulmonary: RA GI/liver: Passed bedside swallow eval. Advance diet after imaging possible RP bleed. Renal/: IV hydration, strict intake output, monitor and replete electrolytes, follow BUN/creatinine. Received IV contrast 12/14. ID: No indication for antibiotics at this time. Endocrine: Watch for hypoglycemia, SSI for glycemic control if needed. Continue home dose of Synthroid. Heme: Follow CBC and coags. Hematology consult for hypercoagulable workup. Thromboembolic event possibly related to OCP use. Keep off oral contraceptives. BLE u/s 12/14 negative for DVT Prophylaxis: Pepcid/SCDs. Subcu Lovenox started tomorrow if okay with neurology. FULL CODE Patient, another, and bedside RN were updated at bedside. Level 2 followup.
[2017-12-15 10:29] LABS: Baso % (Auto) 0.3 % (0.0-2.0); Eos # (Auto) 0.1 th/mm3 (0.0-0.4); Hematocrit 33.2 % (35.0-46.0); Lymph # (Auto) 1.3 th/mm3 (1.0-4.8); Mean Corpuscular Hemoglobin 33.7 pg (27.0-34.0); Mean Corpuscular Volume 93.5 fL (80.0-100.0); Mean Platelet Volume 8.9 fL (7.0-11.0); Mono # (Auto) 0.5 th/mm3 (0.0-0.9); Mono % (Auto) 7.1 % (0.0-8.0); Neut # (Auto) 5.1 th/mm3 (1.8-7.7); Neut % (Auto) 72.6 % (16.0-70.0); Platelet Count 225 th/mm3 (150-450); Red Blood Count 3.55 mil/mm3 (4.00-5.30); Red Cell Distribution Width 12.5 % (11.6-17.2)
[2017-12-15 10:41] LABS: Albumin 2.9 g/dL (3.4-5.0); Anion Gap 8 meq/L (5-15); Aspartate Aminotransferase 18 U/L (15-37); Blood Urea Nitrogen 5 mg/dL (7-18); Calcium 7.7 mg/dL (8.5-10.1); Carbon Dioxide 21.9 meq/L (21.0-32.0); Chloride 110 meq/L (98-107); Glomerular Filtration Rate Greater Than 89 mL/min (>89); Glucose,Random 68 mg/dL (74-106); Potassium 3.6 meq/L (3.5-5.1); Sodium 140 meq/L (136-145)
[2017-12-15 10:42] LABS: Alanine Aminotransferase 16 U/L (10-53); Cholesterol 188 mg/dL (120-200)
[2017-12-15 10:44] LABS: Alkaline Phosphatase 50 U/L (45-117); Chol/HDL Ratio 3.43 Ratio; HDL Cholesterol 54.8 mg/dL (40.0-60.0); LDL Cholesterol,Calculated 102 mg/dL (0-99); Total Protein 6.5 g/dL (6.4-8.2); Triglycerides 154 mg/dL (42-150)
[2017-12-15] MEDS ORDERED: Diatrizoate Meglum/Diatrizoate Sod Liq 9 ML UDC PO ONE (10:45)
--- NOTE | 2017-12-15 11:35 | P.CON ---
History of Present Illness Service: Hematology. Consult date: 12/15/17 Requesting Physician: Glenn Peter Reason for Consult: MCA stroke, prothrombotic work up. Primary Care Provider: PROVIDER NON STAFF Chief Complaint: Left sided weakness. History of Present Illness: Ms. Marshall is a 27-year-old female, she recently relocated from [place] to the [facility]. She lives at home with her , she had been on oral contraceptive pills for the past 2 years. The patient reports having been in her usual good state of health up until the morning of 12/14/2017, she woke up in the morning feeling well. She suddenly however developed generalized weakness and fell to the ground. She was brought into the emergency department by her . She was assessed to have had a possible stroke, she underwent CT imaging of the brain and MRI of the brain was found to have occlusion of a branch of the right MCA. Patient underwent mechanical thrombectomy with sabianist of flow, she also received IV TPA. She is currently awaiting a cardiac workup with transesophageal echocardiogram scheduled to be done on 12/17/2017. A transthoracic echocardiogram was done on 12/14/2017 which revealed no significant abnormalities. Hematology service is been asked to see her to help assist with prothrombotic workup. Review of Systems Constitutional: Reports weakness, Denies anorexia, Denies chills, Denies excessive sweating, Denies fatigue, Denies fever(s), Denies headache(s), Denies lack of energy, Denies malaise, Denies night sweats, Denies weight gain, Denies weight loss Eyes: Denies blind spots, Denies bulging eyes, Denies change in vision Ears, Nose, Mouth, and Throat: Denies abnormal hearing, Denies change in voice, Denies throat swelling Cardiovascular: Denies chest pain, Denies shortness of breath with activity Respiratory: Denies cough, Denies shortness of breath, Denies shortness of breath with activity Gastrointestinal: Denies abdominal pain, Denies bright, red blood in stools, Denies vomiting Genitourinary: Denies abnormal periods Musculoskeletal: Reports back pain Comments: Since after undergoing thrombectomy. Skin/Breast: Denies yellowing of the skin Neurologic: Denies abnormal hearing Psychiatric: Denies anxiety Endocrine: Denies cold intolerance, Denies flushing Hematologic/Lymphatic: Denies easy bleeding Allergic/Immunologic: Denies GI upset with certain foods PMFSH - History History Provided By: Patient, Family Member - Medical History Medical History: Medical History (Last Updated 12/15/17 @ 11:28 by Michael Lucio MD) Hypothyroid Migraines - Family History Family History: Family History (Last Updated 12/15/17 @ 11:28 by Michael Lucio MD) Other Hypertension - Social History I have reviewed the patient's Social History: Yes - Tobacco History Second Hand Smoke Exposure: No Smoking Status: Never smoker - Alcohol History How Often Do You Have a Drink Containing Alcohol: 2 to 4 times a month - Substance Use History Substance History: No History of Abuse - Travel History Recent Travel in the [place] Within the Last 8 Weeks: No Recent Travel Out of the Country Within the Last 8 Weeks: No - Immunization History Tetanus Immunization: Unsure Hx Influenza Vaccine This Season: No Medications and Allergies Active Medications: Active Medications Acetaminophen (Tylenol) 650 mg PO Q6H PRN PRN Reason: FEVER >101F Last Admin: 12/15/17 08:20 Dose: 650 mg Hydrocodone Bitart/Acetaminophen (Grant 5/325) 1 tab PO Q4H PRN PRN Reason: PAIN 1-10 Al Hydroxide/Mg Hydroxide (Milk Of Magndanya Liq) 30 ml PO Q12H PRN PRN Reason: Mild Constipation Albuterol (Duoneb Neb (Prn)) 1 ampul NEB Q2HR NEB PRN PRN Reason: WHEEZING Bisacodyl (Dulcolax Supp) 10 mg RECTAL DAILY PRN PRN Reason: SEVERE CONSITIPATION Chlorhexidine Gluconate (Chlorhexidine 2% Cloth) 3 pack TOPICAL DAILY@0400 [facility] Stop: 12/20/17 03:59 Last Admin: 12/15/17 05:22 Dose: 3 pack Chlorhexidine Gluconate (Chlorhexidine 2% Cloth) 3 pack TOPICAL DAILY@0400 PRN PRN Reason: Extra cloth needed Stop: 12/20/17 03:59 Famotidine (Pepcid Pf Inj) 20 mg IV.PUSH Q12HR [facility] Last Admin: 12/15/17 08:20 Dose: 20 mg Sodium Chloride (Ns Inj) 1,000 mls @ 70 mls/hr IV.CONT .[id number] [facility] Last Admin: 12/15/17 07:12 Dose: 70 mls/hr Labetalol HCl (Trandate Inj) 10 mg IV.PUSH Q4H PRN PRN Reason: SBP> OR = 180, DBP> OR = 100 Lactulose (Lactulose Liq) 30 ml PO DAILY PRN PRN Reason: SEVERE CONSITIPATION Ondansetron HCl (Zofran Inj) 4 mg IV.PUSH Q6H PRN PRN Reason: NAUSEA OR VOMITING Senna/Docusate Sodium (Khadra-Colace) 1 tab PO BID [facility] Last Admin: 12/15/17 08:20 Dose: 1 tab Sennosides (Senokot) 17.2 mg PO Q12H PRN PRN Reason: Moderate Constipation Sodium Chloride (Ns Flush) 2 ml IV.FLUSH BID [facility] Last Admin: 12/15/17 08:22 Dose: 2 ml Sodium Chloride (Ns Flush) 2 ml IV.FLUSH PRN PRN PRN Reason: FLUSH AFTER USING IV ACCESS Allergies Allergy/AdvReac Type Severity Reaction Status Date / Time aspirin Allergy Swelling Verified 12/14/17 18:43 Home Medications Medication Instructions Recorded Confirmed Type levothyroxine [Synthroid] 50 mcg PO DAILY 12/14/17 12/14/17 History Physical Exam Vital signs: Vital Signs 12/14/17 12:10 12/14/17 15:00 12/14/17 15:15 Temperature 97.9 F 97.5 F L Pulse Rate 82 87 92 H Respiratory Rate 16 18 17 Blood Pressure 108/57 L 97/49 L 99/53 L Pulse Oximetry 100 100 100 12/14/17 15:30 12/14/17 16:00 12/14/17 16:47 Temperature 97.5 F L Pulse Rate 92 H 87 88 Respiratory Rate 18 11 L Blood Pressure 98/55 L 104/54 L Pulse Oximetry 100 100 12/14/17 18:00 12/14/17 18:34 12/14/17 18:57 Temperature Pulse Rate 88 Respiratory Rate 16 Blood Pressure Pulse Oximetry 99 12/14/17 20:00 12/14/17 22:00 12/15/17 00:00 Temperature 98.7 F 98.3 F Pulse Rate 93 H 82 88 Respiratory Rate 14 13 Blood Pressure 99/54 L 99/55 L Pulse Oximetry 98 98 12/15/17 02:00 12/15/17 04:00 12/15/17 06:00 Temperature 98.5 F Pulse Rate 70 46 L 96 H Respiratory Rate 16 Blood Pressure 101/53 L Pulse Oximetry 97 12/15/17 09:11 Temperature Pulse Rate Respiratory Rate Blood Pressure Pulse Oximetry 100 Intake & Output 12/14/17 12/15/17 12/15/17 18:59 06:59 18:59 Intake Total 195 / 195 120 / 120 1000 / 1000 Output Total 775 / 775 Balance 195 / 195 -655 / -655 1000 / 1000 Weight 76.3 kg 81.9 kg Intake: IV 195 / 195 1000 / 1000 NS Inj 1,000 ML @ 70 mls/hr IV. 140 / 140 1000 / 1000 CONT .[id number] [facility] Rx#: [id number] Activase Drip 55 MG In Bag/ 55 / 55 Syringe 1 EACH @ 55 mls/hr IV. SIG ONCE ONE Rx#:[id number] Oral 120 / 120 Output: Urine 775 / 775 Other: # Voids 1 # Bowel Movements 0 Weight On Admission 76.3 kg Narrative: Young female lying in bed, appears to be no acute distress. Her and sister at bedside. Her sister acts as her pediatric licensed practical nurse. - Constitutional no acute distress - Routine HEENT Exam Head: Present: normocephalic, atraumatic Eye: Present: EOMI, PERRL ENT: Present: mucous membranes moist - Routine Neck Exam Present: supple, full ROM, normal carotid upstroke, trachea midline. Absent: JVD, carotid bruit, lymphadenopathy, thyromegaly, swelling - Routine Respiratory Exam Present: CTA bilaterally. Absent: accessory muscle use, rales, respiratory distress, rhonchi, stridor, wheezes, crackles - Routine Cardiovascular Exam Present: RRR, S1, S2. Absent: murmur, gallop, rubs, S3, S4, click - Routine Abdominal Exam Present: soft, tenderness (Tenderness over the left upper quadrant.) - Routine Extremities Exam Absent: cyanosis - Routine Skin Exam Present: intact - Routine Neurological Exam Present: alert, oriented X3, CN II-XII intact, motor deficit (Patient with weakness of the right upper and lower extremities. Weakness (more so than the right) of the left upper and lower extremities.). Absent: sensory deficit - Detailed Neurological Exam: Coma Scale Eye Opening: Spontaneous - Routine Psychiatric Exam Present: normal affect Assessment and Plan - Plan Ms. Marshall is a 27-year-old female who presented to this facility with sudden onset symptoms of weakness and severe headache. She underwent imaging studies of the brain including MRI brain and CTA of the brain, she was found to have an occluded right MCA branch. She underwent chemical thrombolysis with TPA, she subsequently underwent mechanical thrombectomy with sabianist of flow with interventional radiology. She reports this is her first life time stroke or thrombotic event (both arterial or venous). She Had been on oral contraceptive pills for the past 2 months. She has no other known risk factors for venous or arterial thromboses. The patient reports having had an allergic reaction to aspirin which he took it many years ago, she reports having had closing of the throat. She has however taken nonsteroidal anti-inflammatories without effect, and tells me that she may have even taken medications which contained aspirin without difficulty. It is not clear at this time whether she has a true allergy to aspirin. The hematology service is been asked to see her for further workup and management of a prothrombotic condition. Recommendations: 1. Right MCA occlusion secondary to embolic event: Await GELY which is scheduled for 12/17/2017. Ultrasound Doppler of the lower extremities was negative for deep venous thromboses in either lower extremity. 2. Prothrombotic workup has been ordered, I requested antiphospholipid antibodies, circulating lupus anticoagulant, protein C and protein S antigen and activity levels respectively, factor V Leiden mutation, prothrombin gene mutation, Antithrombin III levels, homocysteine level, CRP, CLEMENTE. I will add on any additional prothrombotic studies which may be needed. Hematology service to follow along with you. I will allow the neurology service and critical care service to direct management at this time as far as immediate treatment interventions are concerned.
--- NOTE | 2017-12-15 11:48 | US ---
EXAM DATE: 12/15/2017 12:00 AM EDT AGE/SEX: 27 years / Female INDICATIONS: Pain and swelling. Please evaluate for groin pseudoaneurysm . CLINICAL DATA: This is the patient's initial encounter. Patient reports that signs and symptoms have been present for 1 day and indicates a pain score of 0/10. MEDICAL/SURGICAL HISTORY: . Cerebrovascular accident. Hypothyroidism. None. COMPARISON: [facility] [place], [place] VENOUS DOPPLER LEG BI, 12/14/2017. . TECHNIQUE: Cole-scale and color Doppler imaging of the inguinal region was performed. FINDINGS: Vascular: The arteries and veins in the inguinal region demonstrate no acute abnormality. There is no aneurysm, pseudoaneurysm, or thrombosis. Other: No hematoma is present. The visualized surrounding structures demonstrate no abnormality. CONCLUSION: 1. Negative examination with no evidence of pseudoaneurysm or hematoma. Electronically signed by: Gera Winston MD 12/15/2017 11:47 AM EDT
--- NOTE | 2017-12-15 14:02 | P.PNNEU ---
Subjective Subjective Comments: No cp, no dyspnea, no dickinson. Having some right abdominal pain. Will be going for CT scan Patient states she feels better and stronger compared to yesterday morning. Active Medications: Active Medications Acetaminophen (Tylenol) 650 mg PO Q6H PRN PRN Reason: FEVER >101F Last Admin: 12/15/17 08:20 Dose: 650 mg Hydrocodone Bitart/Acetaminophen ([place] 5/325) 1 tab PO Q4H PRN PRN Reason: PAIN 1-10 Al Hydroxide/Mg Hydroxide (Milk Of Magnesia Liq) 30 ml PO Q12H PRN PRN Reason: Mild Constipation Albuterol (Duoneb Neb (Prn)) 1 ampul NEB Q2HR NEB PRN PRN Reason: WHEEZING Bisacodyl (Dulcolax Supp) 10 mg RECTAL DAILY PRN PRN Reason: SEVERE CONSITIPATION Chlorhexidine Gluconate (Chlorhexidine 2% Cloth) 3 pack TOPICAL DAILY@0400 [facility] Stop: 12/20/17 03:59 Last Admin: 12/15/17 05:22 Dose: 3 pack Chlorhexidine Gluconate (Chlorhexidine 2% Cloth) 3 pack TOPICAL DAILY@0400 PRN PRN Reason: Extra cloth needed Stop: 12/20/17 03:59 Famotidine (Pepcid Pf Inj) 20 mg IV.PUSH Q12HR [facility] Last Admin: 12/15/17 08:20 Dose: 20 mg Sodium Chloride (Ns Inj) 1,000 mls @ 70 mls/hr IV.CONT .[id number] [facility] Last Admin: 12/15/17 07:12 Dose: 70 mls/hr Labetalol HCl (Trandate Inj) 10 mg IV.PUSH Q4H PRN PRN Reason: SBP> OR = 180, DBP> OR = 100 Lactulose (Lactulose Liq) 30 ml PO DAILY PRN PRN Reason: SEVERE CONSITIPATION Ondansetron HCl (Zofran Inj) 4 mg IV.PUSH Q6H PRN PRN Reason: NAUSEA OR VOMITING Senna/Docusate Sodium (Khadra-Colace) 1 tab PO BID [facility] Last Admin: 12/15/17 08:20 Dose: 1 tab Sennosides (Senokot) 17.2 mg PO Q12H PRN PRN Reason: Moderate Constipation Sodium Chloride (Ns Flush) 2 ml IV.FLUSH BID [facility] Last Admin: 12/15/17 08:22 Dose: 2 ml Sodium Chloride (Ns Flush) 2 ml IV.FLUSH PRN PRN PRN Reason: FLUSH AFTER USING IV ACCESS Allergies/Adverse Reactions: Allergies Allergy/AdvReac Type Severity Reaction Status Date / Time aspirin Allergy Swelling Verified 12/14/17 18:43 Review of Systems All other systems reviewed negative except as stated in HPI Physical Exam Vital signs: Vital Signs 12/14/17 15:00 12/14/17 15:15 12/14/17 15:30 Temperature 97.5 F L Pulse Rate 87 92 H 92 H Respiratory Rate 18 17 18 Blood Pressure 97/49 L 99/53 L 98/55 L Pulse Oximetry 100 100 100 12/14/17 16:00 12/14/17 16:47 12/14/17 18:00 Temperature 97.5 F L Pulse Rate 87 88 88 Respiratory Rate 11 L Blood Pressure 104/54 L Pulse Oximetry 100 12/14/17 18:34 12/14/17 18:57 12/14/17 20:00 Temperature 98.7 F Pulse Rate 93 H Respiratory Rate 16 14 Blood Pressure 99/54 L Pulse Oximetry 99 98 12/14/17 22:00 12/15/17 00:00 12/15/17 02:00 Temperature 98.3 F Pulse Rate 82 88 70 Respiratory Rate 13 Blood Pressure 99/55 L Pulse Oximetry 98 12/15/17 04:00 12/15/17 06:00 12/15/17 08:50 Temperature 98.5 F Pulse Rate 46 L 96 H Respiratory Rate 16 18 Blood Pressure 101/53 L Pulse Oximetry 97 12/15/17 09:11 Temperature Pulse Rate Respiratory Rate Blood Pressure Pulse Oximetry 100 Intake & Output 12/14/17 12/15/17 12/15/17 18:59 06:59 18:59 Intake Total 195 / 195 120 / 120 1000 / 1000 Output Total 775 / 775 Balance 195 / 195 -655 / -655 1000 / 1000 Weight 76.3 kg 81.9 kg Intake: IV 195 / 195 1000 / 1000 NS Inj 1,000 ML @ 70 mls/hr IV. 140 / 140 1000 / 1000 CONT .[id number] [facility] Rx#: [id number] Activase Drip 55 MG In Bag/ 55 / 55 Syringe 1 EACH @ 55 mls/hr IV. SIG ONCE ONE Rx#:[id number] Oral 120 / 120 Output: Urine 775 / 775 Other: # Voids 1 # Bowel Movements 0 Weight On Admission 76.3 kg Narrative: Awake alert oriented x3, facial hypovolemia, improved facial symmetry smile symmetric, visual gonzales full, no neglect, able to raise left lower and upper extremity gravity without any drift slightly slow fine finger movements however - Constitutional no acute distress - Routine HEENT Exam Head: Present: normocephalic Eye: Present: EOMI Objective Laboratory Results - last 24 hr 12/14/17 12/14/17 12/14/17 10:44 10:44 16:30 WBC RBC Hgb Hct MCV MCH MCHC RDW Plt Count MPV Prelim Diff (Auto) Neut % (Auto) Lymph % (Auto) [place] % (Auto) Eos % (Auto) Baso % (Auto) Neut # (Auto) Lymph # (Auto) [place] # (Auto) Eos # (Auto) Baso # (Auto) WBC Differential Diff Scan Differential Comment ESR 18 Sodium Potassium Chloride Carbon Dioxide Anion Gap BUN Creatinine Estimated GFR Random Glucose Calcium Total Bilirubin AST ALT Alkaline Phosphatase C-Reactive Protein 0.55 H Total Protein Albumin Triglycerides Cholesterol LDL Cholesterol, Calc HDL Cholesterol Cholesterol/HDL Ratio Vitamin B12 407 Folate Greater than 20.0 H Nasal Screen MRSA (PCR) Not detected 12/15/17 12/15/17 12/15/17 09:51 09:51 09:51 WBC 7.0 RBC 3.55 L Hgb 12.0 Hct 33.2 L MCV 93.5 MCH 33.7 MCHC 36.0 RDW 12.5 Plt Count 225 D MPV 8.9 Prelim Diff (Auto) Slide review pending Neut % (Auto) 72.6 H Lymph % (Auto) 19.0 [place] % (Auto) 7.1 Eos % (Auto) 1.0 Baso % (Auto) 0.3 Neut # (Auto) 5.1 Lymph # (Auto) 1.3 [place] # (Auto) 0.5 Eos # (Auto) 0.1 Baso # (Auto) 0.0 WBC Differential . Diff Scan Auto diff confirmed Differential Comment . ESR Sodium 140 Potassium 3.6 Chloride 110 H Carbon Dioxide 21.9 Anion Gap 8 BUN 5 L Creatinine 0.57 Estimated GFR Greater than 89 Random Glucose 68 L Calcium 7.7 L Total Bilirubin 0.7 AST 18 ALT 16 Alkaline Phosphatase 50 C-Reactive Protein Total Protein 6.5 D Albumin 2.9 L Triglycerides Cancelled 154 H Cholesterol Cancelled 188 LDL Cholesterol, Calc Cancelled 102 H HDL Cholesterol Cancelled 54.8 Cholesterol/HDL Ratio Cancelled 3.43 Vitamin B12 Folate Nasal Screen MRSA (PCR) Review/Management - Diagnosis (1) Acute right MCA stroke Code(s): I63.511 - Cerebral infarction due to unspecified occlusion or stenosis of right middle cerebral artery Status: Acute Current Visit: Yes - Review/Management Plan: Acute right MCA stroke secondary to right MCA branch occlusion Risk factors include oral contraceptive use, may have an underlying hypercoagulable state versus cardiac defect NIH stroke scale score 1 Recommendation Neurologically doing well Follow-up CT brain 24 hours post TPA Follow-up MRI brain, MRA brain Follow-up CT abdomen Follow exam Heme evaluation to exclude hypercoagulable state; appreciate evaluation Cardiology evaluation for EGLY, event monitor; appreciate evaluation
--- NOTE | 2017-12-15 15:00 | CT ---
EXAM DATE: 12/15/2017 2:29 PM EDT AGE/SEX: 27 years / Female INDICATIONS: Altered mental status. CLINICAL DATA: This is the patient's subsequent encounter. Patient reports that signs and symptoms h ave been present for 1 day and indicates a pain score of 0/10. MEDICAL/SURGICAL HISTORY: Stroke. None. RADIATION DOSE: 56.35 CTDI (mGy) COMPARISON: . TECHNIQUE: CT of the head without contrast. Using automated exposure control and adjustment of the mA and/or kV according to patient size, radiation dose was kept as low as reasonably achievable to ob tain optimal diagnostic quality images. DICOM format image data is available electronically for revi ew and comparison. FINDINGS: Cerebrum: The ventricles are normal for age. No evidence of midline shift, mass lesion, hemorrhage or acute infarction. No extraaxial fluid collections are seen. Posterior Fossa: The cerebellum and brainstem are intact. The 4th ventricle is midline. The cerebe llopontine angle is unremarkable. Extracranial: The visualized portion of the orbits is intact. Skull: The calvaria is intact. No evidence of skull fracture. CONCLUSION: 1. Negative CT Head non contrast. . Electronically signed by: Rajan Malone MD 12/15/2017 2:59 PM EDT
--- NOTE | 2017-12-15 15:09 | CT ---
EXAM DATE: 12/15/2017 11:02 AM EDT AGE/SEX: 27 years / Female INDICATIONS: Bilateral flank pain. CLINICAL DATA: This is the patient's initial encounter. Patient reports that signs and symptoms have been present for 1 day and indicates a pain score of 7/10. MEDICAL/SURGICAL HISTORY: Stroke. None. RADIATION DOSE: 7.37 CTDI (mGy) COMPARISON: None. TECHNIQUE: Multiple contiguous axial images were obtained through the abdomen. Images were obtained using multiple row detector helical technique. Using automated exposure control and adjustment of the mA and/or kV according to patient size, radiation dose was kept as low as reasonably achievable to o btain optimal diagnostic quality images. DICOM format image data is available electronically for rev iew and comparison. FINDINGS: Lower Lungs: Bibasilar posterior pleural thickening is noted. Liver: The liver has a homogeneous density without space-occupying lesion. There is no dilation of th e biliary tree. High density material layers within the gallbladder consistent with sludge or tiny st ones. Spleen: Homogeneous density without enlargement. Pancreas: Unremarkable without mass or calcification. Kidneys: Normal in size and shape. No evidence of mass or hydronephrosis. Adrenal Glands: Unremarkable. Aorta: The aorta and proximal iliac vessels are grossly unremarkable without aneurysmal dilation. Bowel/Mesentery: The bowel loops are grossly unremarkable. The cecum and sigmoid colon have a normal configuration. Abdominal Wall: Intact. Retroperitoneum: No evidence of adenopathy in the retrocrural, para-aortic, or deep pelvic regions. Bladder: Contours are smooth. Reproductive Organs: No abnormal masses or calcifications seen. Inguinal: The inguinal region is unremarkable without evidence of adenopathy. Bony Structures: Unremarkable. CONCLUSION: 1. High density material layering within the gallbladder lumen consistent with sludge or tiny stones . 2. Bibasilar posterior pleural thickening. 3. No acute obstructive uropathy. Electronically signed by: Rajan Malone MD 12/15/2017 3:07 PM EDT
--- NOTE | 2017-12-15 15:26 | P.PNCA ---
Subjective Interval history: Patient denies any CP, pressure, palpitations, dizziness, edema or SOB. Patient does complain of mild abdominal pain. Medications and Allergies Allergies Allergy/AdvReac Type Severity Reaction Status Date / Time aspirin Allergy Swelling Verified 12/14/17 18:43 Home Medications Medication Instructions Recorded Confirmed Type levothyroxine [Synthroid] 50 mcg PO DAILY 12/14/17 12/14/17 History Active Medications: Active Medications Acetaminophen (Tylenol) 650 mg PO Q6H PRN PRN Reason: FEVER >101F Last Admin: 12/15/17 08:20 Dose: 650 mg Hydrocodone Bitart/Acetaminophen ([place] 5/325) 1 tab PO Q4H PRN PRN Reason: PAIN 1-10 Al Hydroxide/Mg Hydroxide (Milk Of Magnesia Liq) 30 ml PO Q12H PRN PRN Reason: Mild Constipation Albuterol (Duoneb Neb (Prn)) 1 ampul NEB Q2HR NEB PRN PRN Reason: WHEEZING Bisacodyl (Dulcolax Supp) 10 mg RECTAL DAILY PRN PRN Reason: SEVERE CONSITIPATION Chlorhexidine Gluconate (Chlorhexidine 2% Cloth) 3 pack TOPICAL DAILY@0400 [facility] Stop: 12/20/17 03:59 Last Admin: 12/15/17 05:22 Dose: 3 pack Chlorhexidine Gluconate (Chlorhexidine 2% Cloth) 3 pack TOPICAL DAILY@0400 PRN PRN Reason: Extra cloth needed Stop: 12/20/17 03:59 Famotidine (Pepcid Pf Inj) 20 mg IV.PUSH Q12HR [facility] Last Admin: 12/15/17 08:20 Dose: 20 mg Sodium Chloride (Ns Inj) 1,000 mls @ 70 mls/hr IV.CONT .[id number] [facility] Last Admin: 12/15/17 07:12 Dose: 70 mls/hr Labetalol HCl (Trandate Inj) 10 mg IV.PUSH Q4H PRN PRN Reason: SBP> OR = 180, DBP> OR = 100 Lactulose (Lactulose Liq) 30 ml PO DAILY PRN PRN Reason: SEVERE CONSITIPATION Ondansetron HCl (Zofran Inj) 4 mg IV.PUSH Q6H PRN PRN Reason: NAUSEA OR VOMITING Senna/Docusate Sodium (Khadra-Colace) 1 tab PO BID [facility] Last Admin: 10/20/18 08:20 Dose: 1 tab Sennosides (Senokot) 17.2 mg PO Q12H PRN PRN Reason: Moderate Constipation Sodium Chloride (Ns Flush) 2 ml IV.FLUSH BID [facility] Last Admin: 12/15/17 08:22 Dose: 2 ml Sodium Chloride (Ns Flush) 2 ml IV.FLUSH PRN PRN PRN Reason: FLUSH AFTER USING IV ACCESS Physical Exam Vital signs: Vital Signs 12/14/17 15:30 12/14/17 16:00 12/14/17 16:47 Temperature 97.5 F L Pulse Rate 92 H 87 88 Respiratory Rate 18 11 L Blood Pressure 98/55 L 104/54 L Pulse Oximetry 100 100 12/14/17 18:00 12/14/17 18:34 12/14/17 18:57 Temperature Pulse Rate 88 Respiratory Rate 16 Blood Pressure Pulse Oximetry 99 12/14/17 20:00 12/14/17 22:00 12/15/17 00:00 Temperature 98.7 F 98.3 F Pulse Rate 93 H 82 88 Respiratory Rate 14 13 Blood Pressure 99/54 L 99/55 L Pulse Oximetry 98 98 12/15/17 02:00 12/15/17 04:00 12/15/17 06:00 Temperature 98.5 F Pulse Rate 70 46 L 96 H Respiratory Rate 16 Blood Pressure 101/53 L Pulse Oximetry 97 12/15/17 08:50 12/15/17 09:11 Temperature Pulse Rate Respiratory Rate 18 Blood Pressure Pulse Oximetry 100 Intake & Output 12/14/17 12/15/17 12/15/17 18:59 06:59 18:59 Intake Total 195 / 195 120 / 120 1000 / 1000 Output Total 775 / 775 Balance 195 / 195 -655 / -655 1000 / 1000 Weight 76.3 kg 81.9 kg Intake: IV 195 / 195 1000 / 1000 NS Inj 1,000 ML @ 70 mls/hr IV. 140 / 140 1000 / 1000 CONT .[id number] [facility] Rx#: [id number] Activase Drip 55 MG In Bag/ 55 / 55 Syringe 1 EACH @ 55 mls/hr IV. SIG ONCE ONE Rx#:[id number] Oral 120 / 120 Output: Urine 775 / 775 Other: # Voids 1 # Bowel Movements 0 Weight On Admission 76.3 kg - Constitutional no acute distress - Routine HEENT Exam Head: Present: normocephalic Eye: Present: PERRL ENT: Present: mucous membranes moist - Routine Neck Exam Present: full ROM - Routine Respiratory Exam Present: CTA bilaterally - Routine Cardiovascular Exam Present: S1, S2. Absent: murmur, gallop, rubs - Routine Abdominal Exam Present: normoactive bowel sounds - Routine Extremities Exam Present: full ROM, pulses intact, normal capillary refill. Absent: cyanosis, clubbing, edema - Routine Skin Exam Present: intact - Routine Neurological Exam Present: oriented X3 - Detailed Neurological Exam: Coma Scale Eye Opening: Spontaneous Verbal Response: Oriented Motor Response: Obey commands [place] Coma Scale Total: 15 - Routine Psychiatric Exam Present: normal affect Results 12/15/17 09:51 12/15/17 09:51 Cardiac Enzymes 12/14/17 12/14/17 12/15/17 Range/Units 10:44 10:44 09:51 AST 19 18 (15-37) U/L Troponin I Less than 0.02 L (0.02-0.05) ng/mL Coagulation 12/14/17 Range/Units 10:44 PT 10.1 (9.8-11.6) sec APTT 26.9 (24.3-30.1) sec Lipids 12/15/17 12/15/17 Range/Units 09:51 09:51 Triglycerides Cancelled 154 H Cholesterol Cancelled 188 HDL Cholesterol Cancelled 54.8 Cholesterol/HDL Ratio Cancelled 3.43 CBC 12/14/17 12/15/17 Range/Units 10:44 09:51 WBC 5.8 7.0 (4.0-11.0) th/mm3 RBC 4.37 3.55 L (4.00-5.30) mil/mm3 Hgb 13.9 12.0 (11.6-15.3) gm/dL Hct 41.1 33.2 L (35.0-46.0) % Plt Count 324 225 D (150-450) th/mm3 Neut # (Auto) 3.0 5.1 (1.8-7.7) th/mm3 Lymph # (Auto) 2.3 1.3 (1.0-4.8) th/mm3 [place] # (Auto) 0.4 0.5 (0.0-0.9) th/mm3 Eos # (Auto) 0.1 0.1 (0.0-0.4) th/mm3 Baso # (Auto) 0.0 0.0 (0.0-0.2) th/mm3 Comprehensive Metabolic Panel 12/14/17 12/14/17 12/15/17 Range/Units 10:44 10:44 09:51 Sodium 141 140 (136-145) meq/L Potassium 3.4 L 3.6 (3.5-5.1) meq/L Chloride 108 H 110 H (98-107) meq/L Carbon Dioxide 23.7 21.9 (21.0-32.0) meq/L BUN 10 5 L (7-18) mg/dL Creatinine 0.73 0.57 (0.50-1.00) mg/dL Calcium 8.4 L 7.7 L (8.5-10.1) mg/dL Direct Bilirubin 0.1 (0.0-0.2) mg/dL Indirect Bilirubin 0.2 (0.0-0.8) mg/dL AST 19 18 (15-37) U/L ALT 16 16 (10-53) U/L Alkaline Phosphatase 50 50 (45-117) U/L Total Protein 7.3 6.5 D (6.4-8.2) g/dL Albumin 3.3 L 2.9 L (3.4-5.0) g/dL Intake and Output 12/15/17 12/15/17 12/15/17 06:59 14:59 22:59 Intake Total 120 / 120 1000 / 1000 Output Total 775 / 775 Balance -655 / -655 1000 / 1000 Intake: IV 1000 / 1000 NS Inj 1,000 ML @ 70 mls/hr IV. 1000 / 1000 CONT .[id number] [facility] Rx#: [id number] Oral 120 / 120 Output: Urine 775 / 775 Other: # Bowel Movements 0 Weight 81.9 kg - Imaging and Cardiology Imaging: Impressions Venous Doppler Study 12/14/17 00:00 CONCLUSION: 1. The study is negative for bilateral lower extremity deep venous thrombosis. Head CT 12/14/17 10:20 CONCLUSION: 1. Hyperdense right middle cerebral artery identified concerning for right MCA occlusion. Can be further evaluated with CT angiography of the head without contrast. 2. No hemorrhage or mass. . Chest X-Ray 12/14/17 10:21 CONCLUSION: Negative examination. Head CTA 12/14/17 10:21 CONCLUSION: Abrupt occlusion of proximal right MCA branch which does appear amenable to intra-arterial stroke treatment if clinically appropriate. Neck CTA 12/14/17 10:21 CONCLUSION: Negative CTA Carotid. Cerebral Angiography 12/14/17 11:43 CONCLUSION: 1. Cerebral angiography confirms complete occlusion of an M2 branch of the right MCA territory. Complete cheondoism of flow through this vessel following suction thrombectomy. TICI grade 3. Abdomen/Pelvis CT 12/15/17 00:00 CONCLUSION: 1. High density material layering within the gallbladder lumen consistent with sludge or tiny stones. 2. Bibasilar posterior pleural thickening. 3. No acute obstructive uropathy. Lower Extremity Ultrasound 12/15/17 00:00 CONCLUSION: 1. Negative examination with no evidence of pseudoaneurysm or hematoma. Head CT 12/15/17 14:01 CONCLUSION: 1. Negative CT Head non contrast. . Assessment and Plan - Assessment (1) Stroke Code(s): I63.9 - Cerebral infarction, unspecified Status: Acute (2) Acute right MCA stroke Code(s): I63.511 - Cerebral infarction due to unspecified occlusion or stenosis of right middle cerebral artery Status: Acute - Plan SR on monitor without evidence of arrhythmias. We will schedule a GELY on Sunday. Discussed with family. 2D echo shows preserved LV EF 60-65%, trace tricuspid valve regurgitation and mild pulmonary valve regurgitation. Continue to monitor patient on telemetry. Patient seen and evaluated by Dr. Welch who participated in care, management and decision-making. - Attending Attestation Patient seen and examined. I reviewed and agree with the evaluation and plan as presented. Will schedule GELY on Sun. (1) Stroke Qualifiers: CVA mechanism: occlusion Precerebral and cerebral artery: middle cerebral artery Laterality of affected vessel: right Qualified Code(s): I63.511 - Cerebral infarction due to unspecified occlusion or stenosis of right middle cerebral artery
--- NOTE | 2017-12-15 15:31 | MR ---
EXAM DATE: 12/15/2017 11:13 AM EDT AGE/SEX: 27 years / Female INDICATIONS: Cephalgia. Weakness, status post right MCA thrombectomy. CLINICAL DATA: This is the patient's initial encounter. Patient reports that signs and symptoms have been present for 1 day and indicates a pain score of 5/10. MEDICAL/SURGICAL HISTORY: Hypertension. . Thrombectomy. COMPARISON: . TECHNIQUE: Multiplanar, multisequence examination of the brain was performed without contrast. FINDINGS: Cerebrum: There is focal edema or possible ischemia involving the right globus pallidus and body of the right caudate. The ventricles are normal for age. No evidence of midline shift, mass lesion, hem orrhage or acute infarction. No extraaxial fluid collections are seen. The pituitary gland and supr asellar cistern are normal in configuration. White Matter: No significant signal abnormalities are seen in the white matter. Posterior Fossa: The brainstem is intact. There is probable venous angioma involving the right cereb ellar hemisphere. The 4th ventricle is midline. The cerebellopontine angle is unremarkable. The cer ebellar tonsils are normal in position. Diffusion Imaging: No focal areas of restricted diffusion are seen. No evidence of acute infarction . Extracranial: The visualized portions of the orbits and paranasal sinuses are unremarkable. CONCLUSION: 1. Focal edema or possible ischemia involving the right globus pallidus and body of the right caudat e. 2. Probable venous angioma involving the right cerebellar hemisphere area Electronically signed by: Rajan Malone MD 12/15/2017 3:30 PM EDT
--- NOTE | 2017-12-15 15:45 | MR ---
EXAM DATE: 12/15/2017 2:45 PM EDT AGE/SEX: 27 years / Female INDICATIONS: Cephalgia. Weakness, status post right MCA thrombectomy. CLINICAL DATA: This is the patient's initial encounter. Patient reports that signs and symptoms have been present for 1 day and indicates a pain score of 5/10. MEDICAL/SURGICAL HISTORY: None. . Thrombectomy. COMPARISON: . TECHNIQUE: 3D [id number] MRA was performed. Source images, multiplanar STS MIP, and 3D volum e MIP reconstructions were reviewed. FINDINGS: There is excellent visualization of the major intracranial arteries out to the second-order branch ve ssels. There is no evidence for aneurysm, vessel truncation or significant residual stenosis. The pr eviously described occluded branch of the right middle cerebral artery demonstrates flow on today's e xamination. There is mild narrowing at its origin. Right cerebellar venous angioma is noted. Patent b ilateral posterior communicating arteries are noted. CONCLUSION: 1. There is flow within the previously occluded right middle cerebral artery branch and mild residua l narrowing at its origin. 2. Right cerebellar venous angioma. 3. Pain bilateral posterior communicating arteries. Electronically signed by: Rajan Malone MD 12/15/2017 3:44 PM EDT
[2017-12-16] MEDS: Sod Chloride 0.9% Inj 1,000 ML IV.CONT SCH ×2 (01:17→06:15)
[2017-12-16 01:29] LABS: Bacteria,Urine Rare /hpf; Bilirubin,Urine Negative (Negative); Clarity,Urine Hazy (Clear); Color,Urine Yellow (Yellw/Straw); Glucose,Urine (UA) Negative (Negative); Leukocyte Esterase,Urine Trace (Negative); Mucus,Urine Few /lpf (Occasional); Nitrite,Urine Negative (Negative); Specific Gravity,Urine 1.011 (1.002-1.035); Squamous Epithelial Cell,Urine 6 /hpf (0-5)
[2017-12-16] MEDS: Levothyroxine 50 MCG Tablet PO SCH (06:14)
[2017-12-16] MEDS: Chlorhexidine Gluconate 2% 1 Pack (2 Cloths) TOPICAL SCH (06:14)
[2017-12-16] MEDS: Famotidine PF Inj 20 MG/2 ML Vial IV.PUSH SCH ×2 (08:19→20:45)
[2017-12-16] MEDS: Senna/Docusate Sodium 8.6/50 MG Tablet PO SCH ×2 (08:22→20:45)
--- NOTE | 2017-12-16 09:55 | P.PNCA ---
Subjective Interval history: Patient denies any chest pain, pressure, palpitations, dizziness, edema or shortness of breath. Patient does complain of a frontal headache which she is relating to her sinuses. She states that she has a history of sinus pressure that she takes medication for. Medications and Allergies Allergies Allergy/AdvReac Type Severity Reaction Status Date / Time aspirin Allergy Swelling Verified 12/14/17 18:43 Home Medications Medication Instructions Recorded Confirmed Type levothyroxine [Synthroid] 50 mcg PO DAILY 12/14/17 12/14/17 History Active Medications: Active Medications Acetaminophen (Tylenol) 650 mg PO Q6H PRN PRN Reason: FEVER >101F Last Admin: 12/15/17 08:20 Dose: 650 mg Hydrocodone Bitart/Acetaminophen ([place] 5/325) 1 tab PO Q4H PRN PRN Reason: PAIN 1-10 Last Admin: 12/16/17 06:14 Dose: 1 tab Al Hydroxide/Mg Hydroxide (Milk Of Magnesia Liq) 30 ml PO Q12H PRN PRN Reason: Mild Constipation Albuterol (Duoneb Neb (Prn)) 1 ampul NEB Q2HR NEB PRN PRN Reason: WHEEZING Bisacodyl (Dulcolax Supp) 10 mg RECTAL DAILY PRN PRN Reason: SEVERE CONSITIPATION Chlorhexidine Gluconate (Chlorhexidine 2% Cloth) 3 pack TOPICAL DAILY@0400 [facility] Stop: 12/20/17 03:59 Last Admin: 12/16/17 06:14 Dose: 3 pack Chlorhexidine Gluconate (Chlorhexidine 2% Cloth) 3 pack TOPICAL DAILY@0400 PRN PRN Reason: Extra cloth needed Stop: 12/20/17 03:59 Famotidine (Pepcid Pf Inj) 20 mg IV.PUSH Q12HR [facility] Last Admin: 12/16/17 08:19 Dose: 20 mg Sodium Chloride (Ns Inj) 1,000 mls @ 70 mls/hr IV.CONT .[id number] [facility] Last Admin: 12/16/17 06:15 Dose: Not Given Labetalol HCl (Trandate Inj) 10 mg IV.PUSH Q4H PRN PRN Reason: SBP> OR = 180, DBP> OR = 100 Lactulose (Lactulose Liq) 30 ml PO DAILY PRN PRN Reason: SEVERE CONSITIPATION Levothyroxine Sodium (Synthroid) 50 mcg PO DAILY@0600 [facility] Last Admin: 12/16/17 06:14 Dose: 50 mcg Ondansetron HCl (Zofran Inj) 4 mg IV.PUSH Q6H PRN PRN Reason: NAUSEA OR VOMITING Last Admin: 12/15/17 14:45 Dose: 4 mg Senna/Docusate Sodium (Khadra-Colace) 1 tab PO BID [facility] Last Admin: 12/16/17 08:22 Dose: 1 tab Sennosides (Senokot) 17.2 mg PO Q12H PRN PRN Reason: Moderate Constipation Sodium Chloride (Ns Flush) 2 ml IV.FLUSH BID [facility] Last Admin: 12/16/17 08:20 Dose: 2 ml Sodium Chloride (Ns Flush) 2 ml IV.FLUSH PRN PRN PRN Reason: FLUSH AFTER USING IV ACCESS Physical Exam Vital signs: Vital Signs 12/15/17 10:00 12/15/17 10:37 12/15/17 11:00 Temperature Pulse Rate 78 91 H 84 Respiratory Rate 18 29 H 15 Blood Pressure 119/56 L 115/69 Pulse Oximetry 99 99 100 12/15/17 12:00 12/15/17 13:00 12/15/17 14:00 Temperature 98.4 F Pulse Rate 72 71 77 Respiratory Rate 17 17 16 Blood Pressure 115/64 115/65 120/58 L Pulse Oximetry 100 100 100 12/15/17 15:00 12/15/17 15:48 12/15/17 16:00 Temperature 97.9 F Pulse Rate 105 H 74 79 Respiratory Rate 16 16 Blood Pressure 129/71 136/69 Pulse Oximetry 100 99 98 12/15/17 16:12 12/15/17 17:00 12/15/17 17:12 Temperature Pulse Rate 86 96 H 83 Respiratory Rate 30 H 19 17 Blood Pressure 103/49 L 117/71 Pulse Oximetry 98 96 97 12/15/17 18:00 12/15/17 18:12 12/15/17 19:00 Temperature Pulse Rate 76 82 85 Respiratory Rate 17 23 18 Blood Pressure 127/71 Pulse Oximetry 98 98 97 12/15/17 19:12 12/15/17 20:00 12/15/17 20:12 Temperature 98.4 F Pulse Rate 82 77 78 Respiratory Rate 18 15 18 Blood Pressure 126/65 135/70 Pulse Oximetry 97 97 96 10/20/18 21:00 12/15/17 21:12 12/15/17 22:00 Temperature Pulse Rate 75 76 71 Respiratory Rate 26 H 24 20 Blood Pressure 128/67 Pulse Oximetry 98 98 98 12/15/17 22:12 12/15/17 23:00 12/15/17 23:12 Temperature Pulse Rate 74 70 72 Respiratory Rate 21 16 16 Blood Pressure 141/78 H 142/69 H Pulse Oximetry 98 96 96 12/16/17 00:00 12/16/17 00:12 12/16/17 01:00 Temperature 98.2 F Pulse Rate 72 81 69 Respiratory Rate 15 15 17 Blood Pressure 141/82 H Pulse Oximetry 96 97 97 12/16/17 01:12 12/16/17 02:00 12/16/17 02:12 Temperature Pulse Rate 72 72 73 Respiratory Rate 11 L 17 16 Blood Pressure 128/58 L 127/58 L Pulse Oximetry 98 98 99 12/16/17 03:00 12/16/17 03:12 12/16/17 04:00 Temperature Pulse Rate 68 76 89 Respiratory Rate 16 16 17 Blood Pressure 132/61 Pulse Oximetry 97 97 96 12/16/17 04:12 12/16/17 05:00 12/16/17 05:12 Temperature Pulse Rate 71 70 68 Respiratory Rate 14 15 14 Blood Pressure 127/56 L 143/61 H Pulse Oximetry 98 97 97 12/16/17 06:00 12/16/17 06:12 12/16/17 07:00 Temperature Pulse Rate 82 74 71 Respiratory Rate 16 13 25 H Blood Pressure 122/65 120/57 L Pulse Oximetry 98 98 98 12/16/17 07:44 Temperature Pulse Rate 83 Respiratory Rate 15 Blood Pressure 120/57 L Pulse Oximetry 98 Intake & Output 12/15/17 12/16/17 12/16/17 18:59 06:59 18:59 Intake Total 1880 / 1880 1170 / 1170 Output Total 1500 / 1500 Balance 380 / 380 1170 / 1170 Weight 76.5 kg Intake: IV 1000 / 1000 930 / 930 NS Inj 1,000 ML @ 70 mls/hr IV. 1000 / 1000 930 / 930 CONT .[id number] [facility] Rx#: [id number] Oral 880 / 880 240 / 240 Output: Urine 1500 / 1500 Other: # Voids 2 # Bowel Movements 0 Narrative: GENERAL: This is a well-nourished, well-developed patient, in no apparent distress. Patient speaks in clear complete sentences. Patient is pleasant. HEENT: Head is atraumatic and normocephalic. Neck is supple without lymphadenopathy and trachea is midline. No JVD or carotid bruits. CARDIOVASCULAR: Regular rate and rhythm without murmurs, gallops, or rubs. RESPIRATORY: Clear to auscultation. Breath sounds equal bilaterally. No wheezes , rales, or rhonchi. Chest wall is nontender. No use of accessory muscles. GASTROINTESTINAL: Abdomen is nontender, nondistended. Abdomen soft. No obvious pulsatile mass or bruit. No CVA tenderness. Strong femoral pulses bilaterally. Normal bowel sounds in all quadrants. MUSCULOSKELETAL: Patient is moving upper and lower extremities freely. She has left-sided weakness upper and lower extremities. No calf tenderness or edema, no Homans sign. Strong pulses in upper and lower extremities. NEUROLOGICAL: Patient is alert and oriented. Cranial nerves 2-12 are grossly intact. No focal deficits and speech is clear. SKIN: No rash and turgor is normal. Results 12/15/17 09:51 12/15/17 09:51 Cardiac Enzymes 12/14/17 12/14/17 12/15/17 Range/Units 10:44 10:44 09:51 AST 19 18 (15-37) U/L Troponin I Less than 0.02 L (0.02-0.05) ng/mL Coagulation 12/14/17 Range/Units 10:44 PT 10.1 (9.8-11.6) sec APTT 26.9 (24.3-30.1) sec Lipids 12/15/17 12/15/17 Range/Units 09:51 09:51 Triglycerides Cancelled 154 H Cholesterol Cancelled 188 HDL Cholesterol Cancelled 54.8 Cholesterol/HDL Ratio Cancelled 3.43 CBC 12/14/17 12/15/17 Range/Units 10:44 09:51 WBC 5.8 7.0 (4.0-11.0) th/mm3 RBC 4.37 3.55 L (4.00-5.30) mil/mm3 Hgb 13.9 12.0 (11.6-15.3) gm/dL Hct 41.1 33.2 L (35.0-46.0) % Plt Count 324 225 D (150-450) th/mm3 Neut # (Auto) 3.0 5.1 (1.8-7.7) th/mm3 Lymph # (Auto) 2.3 1.3 (1.0-4.8) th/mm3 [place] # (Auto) 0.4 0.5 (0.0-0.9) th/mm3 Eos # (Auto) 0.1 0.1 (0.0-0.4) th/mm3 Baso # (Auto) 0.0 0.0 (0.0-0.2) th/mm3 Comprehensive Metabolic Panel 12/14/17 12/14/17 12/15/17 Range/Units 10:44 10:44 09:51 Sodium 141 140 (136-145) meq/L Potassium 3.4 L 3.6 (3.5-5.1) meq/L Chloride 108 H 110 H (98-107) meq/L Carbon Dioxide 23.7 21.9 (21.0-32.0) meq/L BUN 10 5 L (7-18) mg/dL Creatinine 0.73 0.57 (0.50-1.00) mg/dL Calcium 8.4 L 7.7 L (8.5-10.1) mg/dL Direct Bilirubin 0.1 (0.0-0.2) mg/dL Indirect Bilirubin 0.2 (0.0-0.8) mg/dL AST 19 18 (15-37) U/L ALT 16 16 (10-53) U/L Alkaline Phosphatase 50 50 (45-117) U/L Total Protein 7.3 6.5 D (6.4-8.2) g/dL Albumin 3.3 L 2.9 L (3.4-5.0) g/dL Intake and Output 12/15/17 12/16/17 12/16/17 22:59 06:59 14:59 Intake Total 880 / 880 1170 / 1170 Output Total 1500 / 1500 Balance -620 / -620 1170 / 1170 Intake: IV 930 / 930 NS Inj 1,000 ML @ 70 mls/hr IV. 930 / 930 CONT .[id number] [facility] Rx#: [id number] Oral 880 / 880 240 / 240 Output: Urine 1500 / 1500 Other: # Voids 2 # Bowel Movements 0 Weight 76.5 kg - Imaging and Cardiology Imaging: Impressions Venous Doppler Study 12/14/17 00:00 CONCLUSION: 1. The study is negative for bilateral lower extremity deep venous thrombosis. Head CT 12/14/17 10:20 CONCLUSION: 1. Hyperdense right middle cerebral artery identified concerning for right MCA occlusion. Can be further evaluated with CT angiography of the head without contrast. 2. No hemorrhage or mass. . Chest X-Ray 12/14/17 10:21 CONCLUSION: Negative examination. Head CTA 12/14/17 10:21 CONCLUSION: Abrupt occlusion of proximal right MCA branch which does appear amenable to intra-arterial stroke treatment if clinically appropriate. Neck CTA 12/14/17 10:21 CONCLUSION: Negative CTA Carotid. Cerebral Angiography 12/14/17 11:43 CONCLUSION: 1. Cerebral angiography confirms complete occlusion of an M2 branch of the right MCA territory. Complete jehovah's witness of flow through this vessel following suction thrombectomy. TICI grade 3. Abdomen/Pelvis CT 12/15/17 00:00 CONCLUSION: 1. High density material layering within the gallbladder lumen consistent with sludge or tiny stones. 2. Bibasilar posterior pleural thickening. 3. No acute obstructive uropathy. Lower Extremity Ultrasound 12/15/17 00:00 CONCLUSION: 1. Negative examination with no evidence of pseudoaneurysm or hematoma. Head MRI 12/15/17 13:15 CONCLUSION: 1. Focal edema or possible ischemia involving the right globus pallidus and body of the right caudate. 2. Probable venous angioma involving the right cerebellar hemisphere area Head CT 12/15/17 14:01 CONCLUSION: 1. Negative CT Head non contrast. . Head MRA 12/15/17 14:01 CONCLUSION: 1. There is flow within the previously occluded right middle cerebral artery branch and mild residual narrowing at its origin. 2. Right cerebellar venous angioma. 3. Pain bilateral posterior communicating arteries. Assessment and Plan - Assessment (1) Stroke Code(s): I63.9 - Cerebral infarction, unspecified Status: Acute (2) Acute right MCA stroke Code(s): I63.511 - Cerebral infarction due to unspecified occlusion or stenosis of right middle cerebral artery Status: Acute - Plan Sinus rhythm on monitor without episodes of arrhythmias. Patient will go for GELY tomorrow. 2D echo shows preserved LV EF 60-65%, trace tricuspid valve regurgitation and mild pulmonary valve regurgitation. Increase activity as tolerated. Continue to monitor patient on telemetry. Patient seen and evaluated by Dr. Welch who participated in care, management and decision-making. - Attending Attestation Patient seen and examined. I reviewed and agree with the evaluation and plan as presented. Continue post CVA plan. GELY tomorrow. (1) Stroke Qualifiers: CVA mechanism: occlusion Precerebral and cerebral artery: middle cerebral artery Laterality of affected vessel: right Qualified Code(s): I63.511 - Cerebral infarction due to unspecified occlusion or stenosis of right middle cerebral artery
[2017-12-16] MEDS ORDERED: Butalbital/APAP/Caff 50/325/40 MG Tablet PO PRN (10:33)
--- NOTE | 2017-12-16 11:02 | P.HPIM ---
History of Present Illness Service: [facility] Primary Care Physician: PROVIDER NON STAFF Chief Complaint: Left sided weakness. History of Present Illness: This is a 27-year-old HF with PMHx of Hypothyroidism who was brought to the ER at [place] by her with a history of headache and weakness involving the left side of her body about 30 minutes prior to arrival. Patient was diagnosed to have an ischemic stroke. Head CT was negative for bleed. CTA brain showed occluded right MCA. In IR, patient underwent cerebral angiography and was found to have acute occlusion of prox right M2 branch. Successful clot extraction with re-established flow thru the previously occluded [place] branch of right MCA. She was intubated for the procedure and was subsequently extubated successfully and transferred to PACU and managed by CC. Patient is now medically stable, and we have been asked to manage her medically. Patient reports significant right upper extremity and right lower extremity strength status post TPA. Patient has no current concerns. However does report that she has an aspirin allergy that causes hives. Patient is on OCP's for contraception, and on Synthroid for Hypothyroidism. Of note, family history of paternal grandmother with a CVA in her 70's. No family history of clotting disorder per family. - Diagnosis (1) Hypothyroidism (2) Acute right MCA stroke Inpatient Certification: I certify that the inpatient services were ordered in accordance with Medicare regulations governing the order. This includes certification that hospital inpatient services are reasonable and necessary and in the case of services not specified as inpatient-only under 42 CFR 419.22(n), that they are appropriately provided as inpatient services in accordance to with the 2-midnight benchmark under 43 CFR 412.3(e) Estimated Total Length of Stay (Days): 4 Plans for Post Hospital Care: Not yet determined Review of Systems All other systems reviewed negative except as stated in HPI PMFSH - History History Provided By: Patient, Family Member - Medical / Surgical Hx Neg / Unobtainable Surgical History: No Previous Surgery - Medical History Medical History: Medical History (Last Reviewed 12/16/17 @ 10:39 by Vanessa Reid MD) Hypothyroid Migraines - Family History Family History: Family History (Last Reviewed 12/16/17 @ 10:40 by Vanessa Reid MD) Mother Hypertension Father Hypertension - Social History I have reviewed the patient's Social History: Yes - Tobacco History Second Hand Smoke Exposure: No Smoking Status: Never smoker - Alcohol History How Often Do You Have a Drink Containing Alcohol: 2 to 4 times a month - Substance Use History Substance History: No History of Abuse (, lives with her ) - Travel History Recent Travel in the [place] Within the Last 8 Weeks: No Recent Travel Out of the Country Within the Last 8 Weeks: No - Immunization History Tetanus Immunization: Unsure Hx Influenza Vaccine This Season: No Medications and Allergies Active Medications: Active Medications Acetaminophen (Tylenol) 650 mg PO Q6H PRN PRN Reason: FEVER >101F Last Admin: 12/15/17 08:20 Dose: 650 mg Acetaminophen/Butalbital/Caffeine (Fioricet 50-325-40) 1 tab PO Q6H PRN PRN Reason: HEADACHE Hydrocodone Bitart/Acetaminophen ([place] 5/325) 1 tab PO Q4H PRN PRN Reason: PAIN 1-10 Last Admin: 12/16/17 06:14 Dose: 1 tab Al Hydroxide/Mg Hydroxide (Milk Of Magnesia Liq) 30 ml PO Q12H PRN PRN Reason: Mild Constipation Albuterol (Duoneb Neb (Prn)) 1 ampul NEB Q2HR NEB PRN PRN Reason: WHEEZING Bisacodyl (Dulcolax Supp) 10 mg RECTAL DAILY PRN PRN Reason: SEVERE CONSITIPATION Chlorhexidine Gluconate (Chlorhexidine 2% Cloth) 3 pack TOPICAL DAILY@0400 [facility] Stop: 12/20/17 03:59 Last Admin: 12/16/17 06:14 Dose: 3 pack Chlorhexidine Gluconate (Chlorhexidine 2% Cloth) 3 pack TOPICAL DAILY@0400 PRN PRN Reason: Extra cloth needed Stop: 12/20/17 03:59 Clopidogrel Bisulfate (Plavix) 75 mg PO DAILY [facility] Famotidine (Pepcid Pf Inj) 20 mg IV.PUSH Q12HR [facility] Last Admin: 12/16/17 08:19 Dose: 20 mg Sodium Chloride (Ns Inj) 1,000 mls @ 70 mls/hr IV.CONT .[id number] [facility] Last Admin: 12/16/17 06:15 Dose: Not Given Labetalol HCl (Trandate Inj) 10 mg IV.PUSH Q4H PRN PRN Reason: SBP> OR = 180, DBP> OR = 100 Lactulose (Lactulose Liq) 30 ml PO DAILY PRN PRN Reason: SEVERE CONSITIPATION Levothyroxine Sodium (Synthroid) 50 mcg PO DAILY@0600 [facility] Last Admin: 12/16/17 06:14 Dose: 50 mcg Ondansetron HCl (Zofran Inj) 4 mg IV.PUSH Q6H PRN PRN Reason: NAUSEA OR VOMITING Last Admin: 12/15/17 14:45 Dose: 4 mg Senna/Docusate Sodium (Khadra-Colace) 1 tab PO BID [facility] Last Admin: 12/16/17 08:22 Dose: 1 tab Sennosides (Senokot) 17.2 mg PO Q12H PRN PRN Reason: Moderate Constipation Sodium Chloride (Ns Flush) 2 ml IV.FLUSH BID [facility] Last Admin: 12/16/17 08:20 Dose: 2 ml Sodium Chloride (Ns Flush) 2 ml IV.FLUSH PRN PRN PRN Reason: FLUSH AFTER USING IV ACCESS Allergies Allergy/AdvReac Type Severity Reaction Status Date / Time aspirin Allergy Swelling Verified 12/14/17 18:43 Home Medications Medication Instructions Recorded Confirmed Type levothyroxine [Synthroid] 50 mcg PO DAILY 12/14/17 12/14/17 History Exam Vital signs: Vital Signs 12/15/17 11:00 12/15/17 12:00 12/15/17 13:00 Temperature 98.4 F Pulse Rate 84 72 71 Respiratory Rate 15 17 17 Blood Pressure 115/69 115/64 115/65 Pulse Oximetry 100 100 100 12/15/17 14:00 12/15/17 15:00 12/15/17 15:48 Temperature Pulse Rate 77 105 H 74 Respiratory Rate 16 16 Blood Pressure 120/58 L 129/71 Pulse Oximetry 100 100 99 12/15/17 16:00 12/15/17 16:12 12/15/17 17:00 Temperature 97.9 F Pulse Rate 79 86 96 H Respiratory Rate 16 30 H 19 Blood Pressure 136/69 103/49 L Pulse Oximetry 98 98 96 12/15/17 17:12 12/15/17 18:00 12/15/17 18:12 Temperature Pulse Rate 83 76 82 Respiratory Rate 17 17 23 Blood Pressure 117/71 127/71 Pulse Oximetry 97 98 98 12/15/17 19:00 12/15/17 19:12 10/20/18 20:00 Temperature 98.4 F Pulse Rate 85 82 77 Respiratory Rate 18 18 15 Blood Pressure 126/65 Pulse Oximetry 97 97 97 12/15/17 20:12 12/15/17 21:00 12/15/17 21:12 Temperature Pulse Rate 78 75 76 Respiratory Rate 18 26 H 24 Blood Pressure 135/70 128/67 Pulse Oximetry 96 98 98 12/15/17 22:00 12/15/17 22:12 12/15/17 23:00 Temperature Pulse Rate 71 74 70 Respiratory Rate 20 21 16 Blood Pressure 141/78 H Pulse Oximetry 98 98 96 12/15/17 23:12 12/16/17 00:00 12/16/17 00:12 Temperature 98.2 F Pulse Rate 72 72 81 Respiratory Rate 16 15 15 Blood Pressure 142/69 H 141/82 H Pulse Oximetry 96 96 97 12/16/17 01:00 12/16/17 01:12 12/16/17 02:00 Temperature Pulse Rate 69 72 72 Respiratory Rate 17 11 L 17 Blood Pressure 128/58 L Pulse Oximetry 97 98 98 12/16/17 02:12 12/16/17 03:00 12/16/17 03:12 Temperature Pulse Rate 73 68 76 Respiratory Rate 16 16 16 Blood Pressure 127/58 L 132/61 Pulse Oximetry 99 97 97 12/16/17 04:00 12/16/17 04:12 12/16/17 05:00 Temperature Pulse Rate 89 71 70 Respiratory Rate 17 14 15 Blood Pressure 127/56 L Pulse Oximetry 96 98 97 12/16/17 05:12 12/16/17 06:00 12/16/17 06:12 Temperature Pulse Rate 68 82 74 Respiratory Rate 14 16 13 Blood Pressure 143/61 H 122/65 Pulse Oximetry 97 98 98 12/16/17 07:00 12/16/17 07:44 12/16/17 08:00 Temperature 97.7 F Pulse Rate 71 83 67 Respiratory Rate 25 H 15 14 Blood Pressure 120/57 L 120/57 L 118/57 L Pulse Oximetry 98 98 97 12/16/17 09:00 12/16/17 10:00 Temperature Pulse Rate 64 90 Respiratory Rate 14 13 Blood Pressure 120/59 L 130/70 Pulse Oximetry 98 99 Intake & Output 12/15/17 12/16/17 12/16/17 18:59 06:59 18:59 Intake Total 1880 / 1880 1170 / 1170 Output Total 1500 / 1500 Balance 380 / 380 1170 / 1170 Weight 76.5 kg Intake: IV 1000 / 1000 930 / 930 NS Inj 1,000 ML @ 70 mls/hr IV. 1000 / 1000 930 / 930 CONT .[id number] MARKO Rx#: [id number] Oral 880 / 880 240 / 240 Output: Urine 1500 / 1500 Other: # Voids 2 # Bowel Movements 0 Narrative: GENERAL: Well-nourished female, in no acute distress, lying comfortably in bed SKIN: Warm and dry. HEENT: Normocephalic. No scleral icterus. No injection or drainage. PERRLA, MOM. NECK: Supple, trachea midline. No JVD or lymphadenopathy. CARDIOVASCULAR: Regular rate and rhythm without murmurs, gallops, or rubs. RESPIRATORY: CTA x2 no accessory muscle use. GASTROINTESTINAL: Abdomen soft, non-tender, nondistended. MUSCULOSKELETAL: No cyanosis, or edema. BACK: Nontender without obvious deformity. No CVA tenderness. NEURO: Alert and oriented x3, right upper extremity and right lower extremity strength 3/5, left upper extremity and left lower extremity strength 5/5. Speech is clear. Patient having some mild difficulty with word recall. Results - Labs CBC & Chem 7: 12/15/17 09:51 12/15/17 09:51 Labs: BMP 12/15/17 09:51 Sodium 140 Potassium 3.6 Chloride 110 H Carbon Dioxide 21.9 BUN 5 L Creatinine 0.57 Calcium 7.7 L Liver Function 12/15/17 Range/Units 09:51 Total Bilirubin 0.7 (0.2-1.0) mg/dL AST 18 (15-37) U/L ALT 16 (10-53) U/L Alkaline Phosphatase 50 (45-117) U/L Albumin 2.9 L (3.4-5.0) g/dL Urine 12/16/17 Range/Units 01:00 Urine Color Yellow (Yellw/Straw) Urine Clarity Hazy H (Clear) Urine pH 5.0 (5.0-8.5) Ur Specific [place] 1.011 (1.002-1.035) Urine Protein Negative (Neg-Trace) mg/dL Urine Glucose (UA) Negative (Negative) mg/dL - Imaging Impressions Abdomen/Pelvis CT 12/15/17 00:00 CONCLUSION: 1. High density material layering within the gallbladder lumen consistent with sludge or tiny stones. 2. Bibasilar posterior pleural thickening. 3. No acute obstructive uropathy. Lower Extremity Ultrasound 12/15/17 00:00 CONCLUSION: 1. Negative examination with no evidence of pseudoaneurysm or hematoma. Head MRI 12/15/17 13:15 CONCLUSION: 1. Focal edema or possible ischemia involving the right globus pallidus and body of the right caudate. 2. Probable venous angioma involving the right cerebellar hemisphere area Head CT 12/15/17 14:01 CONCLUSION: 1. Negative CT Head non contrast. . Head MRA 12/15/17 14:01 CONCLUSION: 1. There is flow within the previously occluded right middle cerebral artery branch and mild residual narrowing at its origin. 2. Right cerebellar venous angioma. 3. Pain bilateral posterior communicating arteries. Caprini VTE Risk Assessment Caprini VTE Risk Assessment: Moderate/High Risk (score >= 2) Caprini Risk Assessment Model: Point Value = 1 Point Value = 2 Point Value = 3 Point Value = 5 Age 41-60 Minor surgery BMI > 25 kg/m2 Swollen legs Varicose veins or History of unexplained or recurrent spontaneous Oral contraceptives or hormone replacement Sepsis (< 1 month) Serious lung disease, including pneumonia (< 1 month) Abnormal pulmonary function Acute myocardial infarction Congestive heart failure (< 1 month) History of inflammatory bowel disease Medical patient at bed rest Age 61-74 Arthroscopic surgery Major open surgery (> 45 min) Laparoscopic surgery (> 45 min) Malignancy Confined to bed (> 72 hours) Immobilizing plaster cast Central venous access Age >= 75 History of VTE Family history of VTE Factor V Leiden Prothrombin [id number] Lupus anticoagulant Anticardiolipin antibodies Elevated serum homocysteine Heparin-induced thrombocytopenia Other congenital or acquired thrombophilia Stroke (< 1 month) Elective arthroplasty Hip, pelvis, or leg fracture Acute spinal cord injury (< 1 month) Prophylaxis Regimen: Total Risk Factor Score Risk Level Prophylaxis Regimen 0-1 Low Early ambulation 2 Moderate Order ONE of the following: *Sequential Compression Device (SCD) *Heparin 5000 units SQ BID 3-4 Higher Order ONE of the following medications: *Heparin 5000 units SQ TID *Enoxaparin/Lovenox 40 mg SQ daily (WT < 150 kg, CrCl > 30 mL/min) *Enoxaparin/Lovenox 30 mg SQ daily (WT < 150 kg, CrCl > 10-29 mL/min) *Enoxaparin/Lovenox 30 mg SQ BID (WT < 150 kg, CrCl > 30 mL/min) AND/OR *Sequential Compression Device (SCD) 5 or more Highest Order ONE of the following medications: *Heparin 5000 units SQ TID (Preferred with Epidurals) *Enoxaparin/Lovenox 40 mg SQ daily (WT < 150 kg, CrCl > 30 mL/min) *Enoxaparin/Lovenox 30 mg SQ daily (WT < 150 kg, CrCl > 10-29 mL/min) *Enoxaparin/Lovenox 30 mg SQ BID (WT < 150 kg, CrCl > 30 mL/min) AND *Sequential Compression Device (SCD) Assessment and Plan - Assessment (1) Hypothyroidism Code(s): E03.9 - Hypothyroidism, unspecified Status: Acute (2) Acute right MCA stroke Code(s): I63.511 - Cerebral infarction due to unspecified occlusion or stenosis of right middle cerebral artery Status: Acute - Plan This is a 27-year-old HF with PMHx of Hypothyroidism admitted for IP management of Ischemic stroke involving Right MCA territory status post systemic TPA followed by embolectomy of Right MCA, managed by Neurology, HD#3 1. Acute Ischemic R MCA stroke s/p systemic TPA followed by angioplasty and embolectomy right MCA territory MRA and CT HEAD 24hrs TPA WNL Neurology following, appreciate assistance with management Echo Negative for thrombus, cardiology planning to perform GELY on Sunday, NPO at [place] No family history of clotting disorder, however patient was on oral OCP's which could have contributed Patient has an allergy to aspirin, per neurology recommendations we will start Plavix today Patient's case/recommendations/imaging reviewed with Neurology today at bedside Neuro Reccs 12/15: Follow-up CT brain 24 hours post TPA Follow-up MRI brain, MRA brain Follow-up CT abdomen Heme evaluation to exclude hypercoagulable state; appreciate evaluation Cardiology evaluation for GELY, event monitor; appreciate evaluation HemOnc Reccs 12/15: Right MCA occlusion secondary to embolic event: Await GELY which is scheduled for 12/17/2017. Ultrasound Doppler of the lower extremities was negative for deep venous thromboses in either lower extremity. Prothrombotic workup has been ordered, I requested antiphospholipid antibodies, circulating lupus anticoagulant, protein C and protein S antigen and activity levels respectively , factor V Leiden mutation, prothrombin gene mutation, Antithrombin III levels, homocysteine level, CRP, CLEMENTE. I will add on any additional prothrombotic studies which may be needed. Echo 12/14: Normal left ventricular size. Wall thickness is normal. The left ventricular systolic function is normal with an estimated ejection fraction in the range of 60-65%. There is trace tricuspid valve regurgitation. Mild pulmonary valve regurgitation. 2. Hypothyroidism Continue home Levothyroxine 3. Hx of Migraines Starting Fioricet as needed This was discussed with neurology today 4. DVT/GI Prophylaxis: Pepcid/SCD's. 5. Dispo: NPO for GELY tomorrow, follow-up neurology, Heme, and Cardiology recommendations. Code Status: full Discussed Condition With: Patient, RN, parents, and neurologist H&P: Quality - VTE Deep Vein Thrombosis/Pulmonary Embolism Present on Admission: Yes
--- NOTE | 2017-12-16 11:17 | P.PNNEU ---
Subjective Subjective Comments: No cp, no dyspnea, mild frontal dickinson, no vision loss. Right abdominal lower extremity pain resolved Active Medications: Active Medications Acetaminophen (Tylenol) 650 mg PO Q6H PRN PRN Reason: FEVER >101F Last Admin: 12/15/17 08:20 Dose: 650 mg Acetaminophen/Butalbital/Caffeine (Fioricet 50-325-40) 1 tab PO Q6H PRN PRN Reason: HEADACHE Hydrocodone Bitart/Acetaminophen ([place] 5/325) 1 tab PO Q4H PRN PRN Reason: PAIN 1-10 Last Admin: 12/16/17 06:14 Dose: 1 tab Al Hydroxide/Mg Hydroxide (Milk Of Magnesia Liq) 30 ml PO Q12H PRN PRN Reason: Mild Constipation Albuterol (Duoneb Neb (Prn)) 1 ampul NEB Q2HR NEB PRN PRN Reason: WHEEZING Bisacodyl (Dulcolax Supp) 10 mg RECTAL DAILY PRN PRN Reason: SEVERE CONSITIPATION Chlorhexidine Gluconate (Chlorhexidine 2% Cloth) 3 pack TOPICAL DAILY@0400 [facility] Stop: 12/20/17 03:59 Last Admin: 12/16/17 06:14 Dose: 3 pack Chlorhexidine Gluconate (Chlorhexidine 2% Cloth) 3 pack TOPICAL DAILY@0400 PRN PRN Reason: Extra cloth needed Stop: 12/20/17 03:59 Clopidogrel Bisulfate (Plavix) 75 mg PO DAILY [facility] Famotidine (Pepcid Pf Inj) 20 mg IV.PUSH Q12HR [facility] Last Admin: 12/16/17 08:19 Dose: 20 mg Sodium Chloride (Ns Inj) 1,000 mls @ 70 mls/hr IV.CONT .[id number] [facility] Last Admin: 12/16/17 06:15 Dose: Not Given Labetalol HCl (Trandate Inj) 10 mg IV.PUSH Q4H PRN PRN Reason: SBP> OR = 180, DBP> OR = 100 Lactulose (Lactulose Liq) 30 ml PO DAILY PRN PRN Reason: SEVERE CONSITIPATION Levothyroxine Sodium (Synthroid) 50 mcg PO DAILY@0600 [facility] Last Admin: 12/16/17 06:14 Dose: 50 mcg Ondansetron HCl (Zofran Inj) 4 mg IV.PUSH Q6H PRN PRN Reason: NAUSEA OR VOMITING Last Admin: 12/15/17 14:45 Dose: 4 mg Senna/Docusate Sodium (Khadra-Colace) 1 tab PO BID [facility] Last Admin: 12/16/17 08:22 Dose: 1 tab Sennosides (Senokot) 17.2 mg PO Q12H PRN PRN Reason: Moderate Constipation Sodium Chloride (Ns Flush) 2 ml IV.FLUSH BID [facility] Last Admin: 12/16/17 08:20 Dose: 2 ml Sodium Chloride (Ns Flush) 2 ml IV.FLUSH PRN PRN PRN Reason: FLUSH AFTER USING IV ACCESS Allergies/Adverse Reactions: Allergies Allergy/AdvReac Type Severity Reaction Status Date / Time aspirin Allergy Swelling Verified 12/14/17 18:43 Review of Systems All other systems reviewed negative except as stated in HPI Physical Exam Vital signs: Vital Signs 12/15/17 12:00 12/15/17 13:00 12/15/17 14:00 Temperature 98.4 F Pulse Rate 72 71 77 Respiratory Rate 17 17 16 Blood Pressure 115/64 115/65 120/58 L Pulse Oximetry 100 100 100 12/15/17 15:00 12/15/17 15:48 12/15/17 16:00 Temperature 97.9 F Pulse Rate 105 H 74 79 Respiratory Rate 16 16 Blood Pressure 129/71 136/69 Pulse Oximetry 100 99 98 12/15/17 16:12 12/15/17 17:00 12/15/17 17:12 Temperature Pulse Rate 86 96 H 83 Respiratory Rate 30 H 19 17 Blood Pressure 103/49 L 117/71 Pulse Oximetry 98 96 97 12/15/17 18:00 12/15/17 18:12 12/15/17 19:00 Temperature Pulse Rate 76 82 85 Respiratory Rate 17 23 18 Blood Pressure 127/71 Pulse Oximetry 98 98 97 12/15/17 19:12 12/15/17 20:00 12/15/17 20:12 Temperature 98.4 F Pulse Rate 82 77 78 Respiratory Rate 18 15 18 Blood Pressure 126/65 135/70 Pulse Oximetry 97 97 96 12/15/17 21:00 12/15/17 21:12 12/15/17 22:00 Temperature Pulse Rate 75 76 71 Respiratory Rate 26 H 24 20 Blood Pressure 128/67 Pulse Oximetry 98 98 98 12/15/17 22:12 12/15/17 23:00 12/15/17 23:12 Temperature Pulse Rate 74 70 72 Respiratory Rate 21 16 16 Blood Pressure 141/78 H 142/69 H Pulse Oximetry 98 96 96 12/16/17 00:00 12/16/17 00:12 12/16/17 01:00 Temperature 98.2 F Pulse Rate 72 81 69 Respiratory Rate 15 15 17 Blood Pressure 141/82 H Pulse Oximetry 96 97 97 12/16/17 01:12 12/16/17 02:00 12/16/17 02:12 Temperature Pulse Rate 72 72 73 Respiratory Rate 11 L 17 16 Blood Pressure 128/58 L 127/58 L Pulse Oximetry 98 98 99 12/16/17 03:00 12/16/17 03:12 12/16/17 04:00 Temperature Pulse Rate 68 76 89 Respiratory Rate 16 16 17 Blood Pressure 132/61 Pulse Oximetry 97 97 96 12/16/17 04:12 12/16/17 05:00 12/16/17 05:12 Temperature Pulse Rate 71 70 68 Respiratory Rate 14 15 14 Blood Pressure 127/56 L 143/61 H Pulse Oximetry 98 97 97 12/16/17 06:00 12/16/17 06:12 12/16/17 07:00 Temperature Pulse Rate 82 74 71 Respiratory Rate 16 13 25 H Blood Pressure 122/65 120/57 L Pulse Oximetry 98 98 98 12/16/17 07:44 12/16/17 08:00 12/16/17 09:00 Temperature 97.7 F Pulse Rate 83 67 64 Respiratory Rate 15 14 14 Blood Pressure 120/57 L 118/57 L 120/59 L Pulse Oximetry 98 97 98 12/16/17 10:00 Temperature Pulse Rate 90 Respiratory Rate 13 Blood Pressure 130/70 Pulse Oximetry 99 Intake & Output 12/15/17 12/16/17 12/16/17 18:59 06:59 18:59 Intake Total 1880 / 1880 1170 / 1170 Output Total 1500 / 1500 Balance 380 / 380 1170 / 1170 Weight 76.5 kg Intake: IV 1000 / 1000 930 / 930 NS Inj 1,000 ML @ 70 mls/hr IV. 1000 / 1000 930 / 930 CONT .[id number] MARKO Rx#: [id number] Oral 880 / 880 240 / 240 Output: Urine 1500 / 1500 Other: # Voids 2 # Bowel Movements 0 Narrative: Awake alert oriented x3, face symmetric, smile symmetric, visual gonzales full, no neglect, able to raise left lower and upper extremity gravity without any drift slightly slow fine finger movements however - Constitutional no acute distress - Routine HEENT Exam Head: Present: normocephalic Objective Laboratory Results - last 24 hr 12/15/17 12/16/17 09:51 01:00 C-Reactive Protein 1.58 H Urine Color Yellow Urine Clarity Hazy H Urine pH 5.0 Ur Specific [place] 1.011 Urine Protein Negative Urine Glucose (UA) Negative Urine Ketones 20 Urine Occult Blood Small H Urine Nitrate Negative Urine Bilirubin Negative Urine Urobilinogen Less than 2 Ur Leukocyte Esterase Trace H Urine RBC 1 Urine WBC 4 Ur Squamous Epith Cells 6 Urine Bacteria Rare H Urine Mucus Few H Micro UA Comment Culture not ind Ur Microscopic Review Not Reportable Urine Culture Comments Culture not ind Review/Management - Diagnosis (1) Acute right MCA stroke Code(s): I63.511 - Cerebral infarction due to unspecified occlusion or stenosis of right middle cerebral artery Status: Acute Current Visit: Yes - Review/Management Plan: Acute right MCA stroke secondary to right MCA branch occlusion Risk factors include oral contraceptive use, may have an underlying hypercoagulable state versus cardiac defect NIH stroke scale score 1 mild dystaxia MRI, MRA brain reviewed with patient and family. Recanalization of right MCA. Very faint diffusion restriction changes noted in the right basal ganglia Discussed with medical attending Recommendation Neurologically doing well Okay for floor with telemetry Patient apparently allergic to aspirin within suggest Plavix. May require further change in blood thinner based on her hypercoagulable panel evaluation per hematology Statin for LDL goal of less than 100. Diet and exercise may be helpful in this respect Heme evaluation to exclude hypercoagulable state; appreciate evaluation Cardiology evaluation for GELY, event monitor; appreciate evaluation DC OCP DC planning after above evaluation complete follow-up in the outpatient setting
[2017-12-16] MEDS ORDERED: Sod Chloride 0.9% Inj 1,000 ML IV.CONT PRN ×2 (12:09→13:53)
[2017-12-16] MEDS ORDERED: Menthol 5.8 MG Lozenge BUCCAL PRN (16:53)
[2017-12-17] MEDS ORDERED: MethylPREDNISolone Sod Succinate Inj 125 MG/2 ML Vial IV.PUSH ONE (00:12)
[2017-12-17] MEDS: Chlorhexidine Gluconate 2% 1 Pack (2 Cloths) TOPICAL SCH (04:32)
[2017-12-17 05:24] LABS: Alanine Aminotransferase 18 U/L (10-53); Albumin 3.3 g/dL (3.4-5.0); Alkaline Phosphatase 51 U/L (45-117); Anion Gap 10 meq/L (5-15); Aspartate Aminotransferase 16 U/L (15-37); Blood Urea Nitrogen 10 mg/dL (7-18); C-Reactive Protein 1.98 mg/dL (0.00-0.30); Calcium 8.8 mg/dL (8.5-10.1); Carbon Dioxide 21.9 meq/L (21.0-32.0); Chloride 108 meq/L (98-107); Glomerular Filtration Rate 87 mL/min (>89); Glucose,Random 123 mg/dL (74-106); Potassium 4.1 meq/L (3.5-5.1); Sodium 140 meq/L (136-145); Total Protein 7.6 g/dL (6.4-8.2)
[2017-12-17 05:52] LABS: Baso % (Auto) 0.1 % (0.0-2.0); Eos % (Auto) 0.3 % (0.0-4.0); Hematocrit 40.3 % (35.0-46.0); Hemoglobin 13.6 gm/dL (11.6-15.3); Lymph # (Auto) 0.7 th/mm3 (1.0-4.8); Lymph % (Auto) 6.9 % (9.0-44.0); Mean Corpuscular HGB Conc 33.7 % (32.0-36.0); Mean Corpuscular Hemoglobin 31.8 pg (27.0-34.0); Mean Corpuscular Volume 94.3 fL (80.0-100.0); Mean Platelet Volume 8.8 fL (7.0-11.0); Mono # (Auto) 0.1 th/mm3 (0.0-0.9); Neut # (Auto) 8.8 th/mm3 (1.8-7.7); Neut % (Auto) 91.7 % (16.0-70.0); Platelet Count 239 th/mm3 (150-450); Red Blood Count 4.28 mil/mm3 (4.00-5.30); Red Cell Distribution Width 12.7 % (11.6-17.2); White Blood Count 9.6 th/mm3 (4.0-11.0)
[2017-12-17] MEDS: Levothyroxine 50 MCG Tablet PO SCH (06:23)
--- NOTE | 2017-12-17 09:25 | P.PNCA ---
Subjective Interval history: Patient denies any CP, pressure, palpitations, dizziness or edema. Patient does complain of mild SOB with walking. Patient currently sitting up in chair. Medications and Allergies Allergies Allergy/AdvReac Type Severity Reaction Status Date / Time aspirin Allergy Swelling Verified 12/14/17 18:43 Home Medications Medication Instructions Recorded Confirmed Type levothyroxine [Synthroid] 50 mcg PO DAILY 12/14/17 12/14/17 History Active Medications: Active Medications Acetaminophen (Tylenol) 650 mg PO Q6H PRN PRN Reason: FEVER >101F Last Admin: 12/15/17 08:20 Dose: 650 mg Acetaminophen/Butalbital/Caffeine (Fioricet 50-325-40) 1 tab PO Q6H PRN PRN Reason: HEADACHE Hydrocodone Bitart/Acetaminophen (Mason 5/325) 1 tab PO Q4H PRN PRN Reason: PAIN 1-10 Last Admin: 12/16/17 06:14 Dose: 1 tab Al Hydroxide/Mg Hydroxide (Milk Of Magndanya Liq) 30 ml PO Q12H PRN PRN Reason: Mild Constipation Albuterol (Duoneb Neb (Prn)) 1 ampul NEB Q2HR NEB PRN PRN Reason: WHEEZING Atorvastatin Calcium (Lipitor) 10 mg PO HS [facility] Last Admin: 12/16/17 20:45 Dose: 10 mg Bisacodyl (Dulcolax Supp) 10 mg RECTAL DAILY PRN PRN Reason: SEVERE CONSITIPATION Chlorhexidine Gluconate (Chlorhexidine 2% Cloth) 3 pack TOPICAL DAILY@0400 [facility] Stop: 12/20/17 03:59 Last Admin: 12/17/17 04:32 Dose: Not Given Chlorhexidine Gluconate (Chlorhexidine 2% Cloth) 3 pack TOPICAL DAILY@0400 PRN PRN Reason: Extra cloth needed Stop: 12/20/17 03:59 Clopidogrel Bisulfate (Plavix) 75 mg PO DAILY [facility] Last Admin: 12/16/17 12:09 Dose: 75 mg Famotidine (Pepcid Pf Inj) 20 mg IV.PUSH Q12HR [facility] Last Admin: 12/16/17 20:45 Dose: 20 mg Hydroxyzine HCl (Atarax) 25 mg PO Q6H PRN PRN Reason: ITCHING Last Admin: 12/16/17 23:00 Dose: 25 mg Sodium Chloride (Ns Inj) 1,000 mls @ 70 mls/hr IV.CONT .[id number] PRN PRN Reason: npo Labetalol HCl (Trandate Inj) 10 mg IV.PUSH Q4H PRN PRN Reason: SBP> OR = 180, DBP> OR = 100 Lactulose (Lactulose Liq) 30 ml PO DAILY PRN PRN Reason: SEVERE CONSITIPATION Levothyroxine Sodium (Synthroid) 50 mcg PO DAILY@0600 [facility] Last Admin: 12/17/17 06:23 Dose: 50 mcg Menthol (Frisco) 1 lozenge BUCCAL Q8H PRN PRN Reason: PAIN SCALE 1 TO 10 Last Admin: 12/16/17 17:32 Dose: 1 lozenge Ondansetron HCl (Zofran Inj) 4 mg IV.PUSH Q6H PRN PRN Reason: NAUSEA OR VOMITING Last Admin: 12/15/17 14:45 Dose: 4 mg Senna/Docusate Sodium (Khadra-Colace) 1 tab PO BID [facility] Last Admin: 12/16/17 20:45 Dose: 1 tab Sennosides (Senokot) 17.2 mg PO Q12H PRN PRN Reason: Moderate Constipation Sodium Chloride (Ns Flush) 2 ml IV.FLUSH BID [facility] Last Admin: 12/16/17 20:45 Dose: 2 ml Sodium Chloride (Ns Flush) 2 ml IV.FLUSH PRN PRN PRN Reason: FLUSH AFTER USING IV ACCESS Physical Exam Vital signs: Vital Signs 12/16/17 10:00 12/16/17 11:12 12/16/17 12:12 Temperature 98.2 F Pulse Rate 90 94 H 90 Respiratory Rate 13 22 22 Blood Pressure 130/70 131/73 127/61 Pulse Oximetry 99 99 99 12/16/17 16:00 12/16/17 18:00 12/16/17 18:12 Temperature 98.0 F Pulse Rate 89 84 83 Respiratory Rate 26 H 31 H 27 H Blood Pressure 121/71 127/64 Pulse Oximetry 97 100 98 12/16/17 19:00 12/16/17 19:12 12/16/17 20:00 Temperature 98.3 F Pulse Rate 88 83 87 Respiratory Rate 21 22 21 Blood Pressure 121/62 Pulse Oximetry 98 99 97 12/16/17 20:12 12/16/17 21:04 12/16/17 21:12 Temperature Pulse Rate 96 H 76 82 Respiratory Rate 15 16 23 Blood Pressure 119/65 108/58 L Pulse Oximetry 97 99 98 12/16/17 22:00 12/16/17 22:12 12/16/17 23:00 Temperature Pulse Rate 78 82 79 Respiratory Rate 18 25 H 19 Blood Pressure 115/60 Pulse Oximetry 97 96 99 12/16/17 23:12 12/17/17 00:00 12/17/17 00:12 Temperature 98.4 F Pulse Rate 74 78 77 Respiratory Rate 19 16 16 Blood Pressure 113/66 109/59 L Pulse Oximetry 96 95 94 L 12/17/17 01:00 12/17/17 01:12 12/17/17 02:00 Temperature Pulse Rate 72 88 71 Respiratory Rate 16 18 17 Blood Pressure 114/57 L Pulse Oximetry 94 L 95 96 12/17/17 02:12 12/17/17 03:00 12/17/17 03:12 Temperature Pulse Rate 72 72 74 Respiratory Rate 16 16 17 Blood Pressure 109/59 L 104/58 L Pulse Oximetry 96 95 95 12/17/17 04:00 12/17/17 04:12 Temperature Pulse Rate 78 95 H Respiratory Rate 16 14 Blood Pressure 103/59 L Pulse Oximetry 96 97 Intake & Output 12/16/17 12/17/17 12/17/17 18:59 06:59 18:59 Intake Total 1360 / 1360 300 / 300 Balance 1360 / 1360 300 / 300 Weight 71.2 kg Intake: IV 400 / 400 NS Inj 1,000 ML @ 70 mls/hr IV. 400 / 400 CONT .[id number] [facility] Rx#: [id number] Oral 960 / 960 300 / 300 Other: # Voids 3 2 - Constitutional no acute distress - Routine HEENT Exam Head: Present: normocephalic Eye: Present: PERRL ENT: Present: mucous membranes moist - Routine Neck Exam Present: full ROM - Routine Respiratory Exam Present: CTA bilaterally - Routine Cardiovascular Exam Present: S1, S2. Absent: murmur, gallop, rubs - Routine Abdominal Exam Present: normoactive bowel sounds - Routine Extremities Exam Present: full ROM, pulses intact, normal capillary refill. Absent: cyanosis, clubbing, edema - Routine Skin Exam Present: intact - Routine Neurological Exam Present: oriented X3 - Detailed Neurological Exam: Coma Scale Eye Opening: Spontaneous Verbal Response: Oriented Motor Response: Obey commands [place] Coma Scale Total: 15 - Routine Psychiatric Exam Present: normal affect Results 12/17/17 04:19 12/17/17 04:19 Cardiac Enzymes 12/15/17 12/17/17 Range/Units 09:51 04:19 AST 18 16 (15-37) U/L Lipids 12/15/17 12/15/17 Range/Units 09:51 09:51 Triglycerides Cancelled 154 H Cholesterol Cancelled 188 HDL Cholesterol Cancelled 54.8 Cholesterol/HDL Ratio Cancelled 3.43 CBC 12/15/17 12/17/17 Range/Units 09:51 04:19 WBC 7.0 9.6 (4.0-11.0) th/mm3 RBC 3.55 L 4.28 (4.00-5.30) mil/mm3 Hgb 12.0 13.6 (11.6-15.3) gm/dL Hct 33.2 L 40.3 (35.0-46.0) % Plt Count 225 D 239 (150-450) th/mm3 Neut # (Auto) 5.1 8.8 H (1.8-7.7) th/mm3 Lymph # (Auto) 1.3 0.7 L (1.0-4.8) th/mm3 [place] # (Auto) 0.5 0.1 (0.0-0.9) th/mm3 Eos # (Auto) 0.1 0.0 (0.0-0.4) th/mm3 Baso # (Auto) 0.0 0.0 (0.0-0.2) th/mm3 Comprehensive Metabolic Panel 12/15/17 12/17/17 Range/Units 09:51 04:19 Sodium 140 140 (136-145) meq/L Potassium 3.6 4.1 (3.5-5.1) meq/L Chloride 110 H 108 H (98-107) meq/L Carbon Dioxide 21.9 21.9 (21.0-32.0) meq/L BUN 5 L 10 (7-18) mg/dL Creatinine 0.57 0.80 (0.50-1.00) mg/dL Calcium 7.7 L 8.8 D (8.5-10.1) mg/dL AST 18 16 (15-37) U/L ALT 16 18 (10-53) U/L Alkaline Phosphatase 50 51 (45-117) U/L Total Protein 6.5 D 7.6 D (6.4-8.2) g/dL Albumin 2.9 L 3.3 L (3.4-5.0) g/dL Intake and Output 12/16/17 12/17/17 12/17/17 22:59 06:59 14:59 Intake Total 960 / 960 300 / 300 Balance 960 / 960 300 / 300 Intake: Oral 960 / 960 300 / 300 Other: # Voids 3 2 Weight 71.2 kg - Imaging and Cardiology Imaging: Impressions Abdomen/Pelvis CT 12/15/17 00:00 CONCLUSION: 1. High density material layering within the gallbladder lumen consistent with sludge or tiny stones. 2. Bibasilar posterior pleural thickening. 3. No acute obstructive uropathy. Lower Extremity Ultrasound 12/15/17 00:00 CONCLUSION: 1. Negative examination with no evidence of pseudoaneurysm or hematoma. Head MRI 12/15/17 13:15 CONCLUSION: 1. Focal edema or possible ischemia involving the right globus pallidus and body of the right caudate. 2. Probable venous angioma involving the right cerebellar hemisphere area Head CT 12/15/17 14:01 CONCLUSION: 1. Negative CT Head non contrast. . Head MRA 12/15/17 14:01 CONCLUSION: 1. There is flow within the previously occluded right middle cerebral artery branch and mild residual narrowing at its origin. 2. Right cerebellar venous angioma. 3. Pain bilateral posterior communicating arteries. Assessment and Plan - Assessment (1) Stroke Code(s): I63.9 - Cerebral infarction, unspecified Status: Acute (2) Acute right MCA stroke Code(s): I63.511 - Cerebral infarction due to unspecified occlusion or stenosis of right middle cerebral artery Status: Acute - Plan Sinus rhythm on monitor without episodes of arrhythmias. Continue to monitor patient on tele. Patient scheduled for GELY today. 2D echo shows preserved LV EF 60-65%, trace tricuspid valve regurgitation and mild pulmonary valve regurgitation. Patients overall condition is improving. Increase activity as tolerated, continue PT. Patient seen and evaluated by Dr. Welch who participated in care, management and decision-making. - Attending Attestation Patient seen and examined. I reviewed and agree with the evaluation and plan as presented. Proceed with GELY today as planned. (1) Stroke Qualifiers: CVA mechanism: occlusion Precerebral and cerebral artery: middle cerebral artery Laterality of affected vessel: right Qualified Code(s): I63.511 - Cerebral infarction due to unspecified occlusion or stenosis of right middle cerebral artery
--- NOTE | 2017-12-17 10:20 | P.PN ---
Subjective Interval history: Patient doing well overnight. Reports improved strength and starting PT. Patient does notice that she has a difficult time concentrating and forgets words at times, patient reports that when she tried to sign a consent today her signature was slower than usual. Patient was started on Plavix yesterday and has had a mild rash since starting with some itching that has improved with Benadryl, patient denies difficulty swallowing, throat swelling, or shortness of breath. Patient has been n.p.o. since midnight for GELY today no other concerns per family Physical Exam Vital signs: Vital Signs 12/16/17 11:12 12/16/17 12:12 12/16/17 16:00 Temperature 98.2 F 98.0 F Pulse Rate 94 H 90 89 Respiratory Rate 22 22 26 H Blood Pressure 131/73 127/61 121/71 Pulse Oximetry 99 99 97 12/16/17 18:00 12/16/17 18:12 12/16/17 19:00 Temperature Pulse Rate 84 83 88 Respiratory Rate 31 H 27 H 21 Blood Pressure 127/64 Pulse Oximetry 100 98 98 12/16/17 19:12 12/16/17 20:00 12/16/17 20:12 Temperature 98.3 F Pulse Rate 83 87 96 H Respiratory Rate 22 21 15 Blood Pressure 121/62 119/65 Pulse Oximetry 99 97 97 12/16/17 21:04 12/16/17 21:12 12/16/17 22:00 Temperature Pulse Rate 76 82 78 Respiratory Rate 16 23 18 Blood Pressure 108/58 L Pulse Oximetry 99 98 97 12/16/17 22:12 12/16/17 23:00 12/16/17 23:12 Temperature Pulse Rate 82 79 74 Respiratory Rate 25 H 19 19 Blood Pressure 115/60 113/66 Pulse Oximetry 96 99 96 12/17/17 00:00 12/17/17 00:12 12/17/17 01:00 Temperature 98.4 F Pulse Rate 78 77 72 Respiratory Rate 16 16 16 Blood Pressure 109/59 L Pulse Oximetry 95 94 L 94 L 12/17/17 01:12 12/17/17 02:00 12/17/17 02:12 Temperature Pulse Rate 88 71 72 Respiratory Rate 18 17 16 Blood Pressure 114/57 L 109/59 L Pulse Oximetry 95 96 96 12/17/17 03:00 12/17/17 03:12 12/17/17 04:00 Temperature Pulse Rate 72 74 78 Respiratory Rate 16 17 16 Blood Pressure 104/58 L Pulse Oximetry 95 95 96 12/17/17 04:12 Temperature Pulse Rate 95 H Respiratory Rate 14 Blood Pressure 103/59 L Pulse Oximetry 97 Intake & Output 12/16/17 12/17/17 12/17/17 18:59 06:59 18:59 Intake Total 1360 / 1360 300 / 300 Balance 1360 / 1360 300 / 300 Weight 71.2 kg Intake: IV 400 / 400 NS Inj 1,000 ML @ 70 mls/hr IV. 400 / 400 CONT .[id number] [facility] Rx#: [id number] Oral 960 / 960 300 / 300 Other: # Voids 3 2 Narrative: GENERAL: Well-nourished female, in no acute distress, sitting comfortably in chair SKIN: Warm and dry. Fine MP diffuse rash on back, 3x3cm erythematous macule under R axilla. No oozing or drainage. HEENT: Normocephalic. No scleral icterus. No injection or drainage. PERRLA, MOM. NECK: Supple, trachea midline. No JVD or lymphadenopathy. CARDIOVASCULAR: Regular rate and rhythm without murmurs, gallops, or rubs. RESPIRATORY: CTA x2 no accessory muscle use. GASTROINTESTINAL: Abdomen soft, non-tender, nondistended. MUSCULOSKELETAL: No cyanosis, or edema. BACK: Nontender without obvious deformity. No CVA tenderness. NEURO: Alert and oriented x3, right upper extremity and right lower extremity strength 4/5, left upper extremity and left lower extremity strength 5/5. Slightly slow fine finger movements. Speech is clear. Patient having some mild difficulty with word recall. Results - Labs CBC & Chem 7: 12/17/17 04:19 12/17/17 04:19 Laboratory Results - last 24 hr 12/17/17 12/17/17 04:19 04:19 WBC 9.6 RBC 4.28 Hgb 13.6 Hct 40.3 MCV 94.3 MCH 31.8 MCHC 33.7 RDW 12.7 Plt Count 239 MPV 8.8 Neut % (Auto) 91.7 H Lymph % (Auto) 6.9 L [place] % (Auto) 1.0 Eos % (Auto) 0.3 Baso % (Auto) 0.1 Neut # (Auto) 8.8 H Lymph # (Auto) 0.7 L [place] # (Auto) 0.1 Eos # (Auto) 0.0 Baso # (Auto) 0.0 WBC Differential . Differential Comment Auto diff final Sodium 140 Potassium 4.1 Chloride 108 H Carbon Dioxide 21.9 Anion Gap 10 BUN 10 Creatinine 0.80 Estimated GFR 87 L Random Glucose 123 H Calcium 8.8 D Total Bilirubin 0.3 AST 16 ALT 18 Alkaline Phosphatase 51 C-Reactive Protein 1.98 H Total Protein 7.6 D Albumin 3.3 L Assessment and Plan - Assessment (1) Hypothyroidism Code(s): E03.9 - Hypothyroidism, unspecified Status: Chronic (2) Acute right MCA stroke Code(s): I63.511 - Cerebral infarction due to unspecified occlusion or stenosis of right middle cerebral artery Status: Acute - Plan This is a 27-year-old HF with PMHx of Hypothyroidism admitted for IP management of Ischemic stroke involving Right MCA territory status post systemic TPA followed by embolectomy of Right MCA, managed by Neurology, HD#4 1. Acute Ischemic R MCA stroke s/p systemic TPA followed by angioplasty and embolectomy right MCA territory MRA and CT HEAD 24hrs TPA WNL Neurology following, appreciate assistance with management Echo Negative for thrombus, cardiology planning to perform GELY today No family history of clotting disorder, however patient was on oral OCP's which could have contributed, D/C OCP Cont. Plavix (ASA allergy) and statin (LDL 102) Cont. PT Neuro Reccs 12/16: Patient apparently allergic to aspirin within suggest Plavix. May require further change in blood thinner based on her hypercoagulable panel evaluation per hematology Statin for LDL goal of less than 100. Diet and exercise may be helpful in this respect Heme evaluation to exclude hypercoagulable state; appreciate evaluation Cardiology evaluation for GELY, event monitor; appreciate evaluation DC OCP DC planning after above evaluation complete follow-up in the outpatient setting [facility]On Reccs 12/15: Right MCA occlusion secondary to embolic event: Await GELY which is scheduled for 12/17/2017. Ultrasound Doppler of the lower extremities was negative for deep venous thromboses in either lower extremity. Prothrombotic workup has been ordered, I requested antiphospholipid antibodies, circulating lupus anticoagulant, protein C and protein S antigen and activity levels respectively , factor V Leiden mutation, prothrombin gene mutation, Antithrombin III levels, homocysteine level, CRP, CLEMENTE. I will add on any additional prothrombotic studies which may be needed. Cards [facility] 12/17: Sinus rhythm on monitor without episodes of arrhythmias Continue to monitor patient on tele. Patient scheduled for GELY today, will proceed with procedure. 2D echo shows preserved LV EF 60-65%, trace tricuspid valve regurgitation and mild pulmonary valve regurgitation. Patients overall condition is improved. Increase activity as tolerated. 2. Rash Likely a drug reaction to the Plavix Patient denies symptoms of anaphylaxis Rx Benadryl PRN as well as hydrocortisone PRN Will continue to monitor for anaphylactic symptoms 3. Hypothyroidism Continue home Levothyroxine 4. Hx of Migraines Cont. Fioricet as needed This was discussed with neurology today 5. DVT/GI Prophylaxis: Pepcid/SCD's. 6. Dispo: GELY today, follow-up Neurology, Heme, and Cardiology recommendations. Code Status: full Discussed Condition With: patient, RN
[2017-12-17] MEDS: Senna/Docusate Sodium 8.6/50 MG Tablet PO SCH ×2 (10:21→21:01)
[2017-12-17] MEDS: Famotidine PF Inj 20 MG/2 ML Vial IV.PUSH SCH ×2 (10:50→21:01)
--- NOTE | 2017-12-17 14:20 | CF ---
cc: Aspen Welch MD DATE: 12/17/2017 INDICATION: CVA, evaluation for cardiac source of emboli and PFO. PROCEDURE PERFORMED: Transesophageal echocardiogram. DESCRIPTION OF PROCEDURE: After the patient was sedated by Anesthesia, transesophageal probe was placed without difficulties. Tomographic images were obtained. Left ventricular function was preserved with an ejection fraction of 60% with no segmental abnormalities. Left atrial appendage was visualized and there was no evidence of left atrial thrombus. Aortic valve was structurally normal. There was no evidence of aortic stenosis or regurgitation. Mitral valve was structurally was normal. There is no evidence of mitral stenosis or regurgitation. There is evidence of trace tricuspid regurgitation. There was no evidence of significant pulmonic regurgitation. Bubble study was performed and there was no evidence of right to left shunt. The descending thoracic aorta had no significant plaque. DIAGNOSES: 1. No evidence of left atrial thrombus. 2. No evidence of patent foramen ovale. 3. Preserved left ventricular systolic function. 4. Trace tricuspid regurgitation. IMPRESSION: No evidence of cardiac source of emboli. Aspen Welch MD OQ/es , 02:00 PM , 02:06 PM MTDD
[2017-12-17 15:34] LABS: Anti-Nuclear Antibody Screen Pos (Neg)
[2017-12-18] MEDS: Levothyroxine 50 MCG Tablet PO SCH (05:26)
[2017-12-18] MEDS: Chlorhexidine Gluconate 2% 1 Pack (2 Cloths) TOPICAL SCH (05:26)
[2017-12-18] MEDS: Senna/Docusate Sodium 8.6/50 MG Tablet PO SCH ×2 (08:54→20:02)
[2017-12-18] MEDS: Famotidine PF Inj 20 MG/2 ML Vial IV.PUSH SCH ×2 (08:54→20:23)
[2017-12-18 10:01] LABS: Baso % (Auto) 0.4 % (0.0-2.0); Eos # (Auto) 0.2 th/mm3 (0.0-0.4); Eos % (Auto) 2.6 % (0.0-4.0); Hematocrit 34.7 % (35.0-46.0); Hemoglobin 12.4 gm/dL (11.6-15.3); Lymph # (Auto) 2.4 th/mm3 (1.0-4.8); Lymph % (Auto) 39.3 % (9.0-44.0); Mean Corpuscular HGB Conc 35.9 % (32.0-36.0); Mean Corpuscular Hemoglobin 33.5 pg (27.0-34.0); Mean Corpuscular Volume 93.3 fL (80.0-100.0); Mean Platelet Volume 8.9 fL (7.0-11.0); Mono # (Auto) 0.4 th/mm3 (0.0-0.9); Mono % (Auto) 7.2 % (0.0-8.0); Neut # (Auto) 3.1 th/mm3 (1.8-7.7); Neut % (Auto) 50.5 % (16.0-70.0); Platelet Count 220 th/mm3 (150-450); Red Blood Count 3.72 mil/mm3 (4.00-5.30); Red Cell Distribution Width 12.7 % (11.6-17.2); White Blood Count 6.2 th/mm3 (4.0-11.0)
[2017-12-18 10:14] LABS: Anion Gap 9 meq/L (5-15); Aspartate Aminotransferase 20 U/L (15-37); Blood Urea Nitrogen 11 mg/dL (7-18); Calcium 8.6 mg/dL (8.5-10.1); Carbon Dioxide 26.4 meq/L (21.0-32.0); Chloride 106 meq/L (98-107); Glomerular Filtration Rate Greater Than 89 mL/min (>89); Glucose,Random 82 mg/dL (74-106); Potassium 3.7 meq/L (3.5-5.1); Sodium 141 meq/L (136-145)
[2017-12-18 10:18] LABS: Alanine Aminotransferase 22 U/L (10-53); Alkaline Phosphatase 49 U/L (45-117)
--- NOTE | 2017-12-18 11:34 | P.PN ---
Subjective Interval history: Patient reports improved weakness of left upper and lower extremities. Patient is tolerating p.o., voiding/stooling well. Patient has no current concerns. Patient also reports that rash has improved with hydrocortisone cream and Benadryl. Physical Exam Vital signs: Vital Signs 12/17/17 12:12 12/17/17 15:35 12/17/17 15:38 Temperature Pulse Rate 91 H 84 81 Respiratory Rate 16 15 16 Blood Pressure 117/66 110/62 114/63 Pulse Oximetry 100 100 100 12/17/17 16:00 12/17/17 17:00 12/17/17 18:00 Temperature Pulse Rate 97 H 90 89 Respiratory Rate 27 H 20 24 Blood Pressure Pulse Oximetry 97 99 100 12/17/17 19:00 12/17/17 20:00 12/18/17 00:00 Temperature 98.1 F 98.1 F Pulse Rate 93 H 98 H 72 Respiratory Rate 111 H 16 16 Blood Pressure 115/65 107/50 L Pulse Oximetry 97 98 95 12/18/17 04:00 12/18/17 07:39 12/18/17 08:06 Temperature 98.2 F Pulse Rate 68 69 73 Respiratory Rate 16 12 132 H Blood Pressure 100/57 L 102/58 L Pulse Oximetry 96 96 Intake & Output 12/17/17 12/18/17 12/18/17 18:59 06:59 18:59 Intake Total 720 / 720 240 / 240 Balance 720 / 720 240 / 240 Weight 71.4 kg Intake: Oral 720 / 720 240 / 240 Other: # Voids 4 2 Date of Last Bowel Movement 12/17/17 Narrative: GENERAL: Well-nourished female, in no acute distress, sitting comfortably in chair SKIN: Warm and dry. Fine MP diffuse rash on back, improved HEENT: Normocephalic. No scleral icterus. No injection or drainage. PERRLA, MOM. NECK: Supple, trachea midline. No JVD or lymphadenopathy. CARDIOVASCULAR: Regular rate and rhythm without murmurs, gallops, or rubs. RESPIRATORY: CTA x2 no accessory muscle use. GASTROINTESTINAL: Abdomen soft, non-tender, nondistended. MUSCULOSKELETAL: No cyanosis, or edema. BACK: Nontender without obvious deformity. No CVA tenderness. NEURO: Alert and oriented x3, right upper extremity and right lower extremity strength 4/5, left upper extremity and left lower extremity strength 5/5. Slightly slow fine finger movements. Speech is clear. Patient having some mild difficulty with word recall. Results - Labs CBC & Chem 7: 12/18/17 09:08 12/18/17 09:08 Laboratory Results - last 24 hr 12/16/17 12/18/17 12/18/17 06:05 09:08 09:08 WBC 6.2 RBC 3.72 L Hgb 12.4 Hct 34.7 L MCV 93.3 MCH 33.5 MCHC 35.9 RDW 12.7 Plt Count 220 MPV 8.9 Neut % (Auto) 50.5 Lymph % (Auto) 39.3 [place] % (Auto) 7.2 Eos % (Auto) 2.6 Baso % (Auto) 0.4 Neut # (Auto) 3.1 Lymph # (Auto) 2.4 [place] # (Auto) 0.4 Eos # (Auto) 0.2 Baso # (Auto) 0.0 WBC Differential . Differential Comment Auto diff final Sodium 141 Potassium 3.7 Chloride 106 Carbon Dioxide 26.4 Anion Gap 9 BUN 11 Creatinine 0.65 Estimated GFR Greater than 89 Random Glucose 82 Calcium 8.6 Total Bilirubin 0.4 AST 20 ALT 22 Alkaline Phosphatase 49 Total Protein 7.0 D Albumin 3.0 L CLEMENTE Screen Pos H Assessment and Plan - Assessment (1) Hypothyroidism Code(s): E03.9 - Hypothyroidism, unspecified Status: Chronic (2) Acute right MCA stroke Code(s): I63.511 - Cerebral infarction due to unspecified occlusion or stenosis of right middle cerebral artery Status: Acute - Plan This is a 27-year-old HF with PMHx of Hypothyroidism admitted for IP management of Ischemic stroke involving Right MCA territory status post systemic TPA followed by embolectomy of Right MCA, managed by Neurology, HD#5 1. Acute Ischemic R MCA stroke LUE/LLE weakness improving with PT s/p systemic TPA followed by angioplasty and embolectomy right MCA territory MRA and CT HEAD 24hrs TPA WNL Neurology following, appreciate assistance with management Echo Negative for thrombus, GELY on 12/17 Neg No family history of clotting disorder, however patient was on oral OCP's which could have contributed, D/C OCP Cont. Plavix (ASA allergy) and statin (LDL 102) HemOnc consulted for coagulopathy work up, pending labs Cont. PT Neuro Reccs 12/16: Patient apparently allergic to aspirin within suggest Plavix. May require further change in blood thinner based on her hypercoagulable panel evaluation per hematology Statin for LDL goal of less than 100. Diet and exercise may be helpful in this respect Heme evaluation to exclude hypercoagulable state; appreciate evaluation Cardiology evaluation for GELY, event monitor; appreciate evaluation DC OCP DC planning after above evaluation complete follow-up in the outpatient setting [facility] Reccs 12/15: Right MCA occlusion secondary to embolic event: Await GELY which is scheduled for 12/17/2017. Ultrasound Doppler of the lower extremities was negative for deep venous thromboses in either lower extremity. Prothrombotic workup has been ordered, I requested antiphospholipid antibodies, circulating lupus anticoagulant, protein C and protein S antigen and activity levels respectively , factor V Leiden mutation, prothrombin gene mutation, Antithrombin III levels, homocysteine level, CRP, CLEMENTE. I will add on any additional prothrombotic studies which may be needed. GELY 12/17: No evidence of left atrial thrombus. No evidence of patent foramen ovale. Preserved left ventricular systolic function. Trace tricuspid regurgitation. IMPRESSION: No evidence of cardiac source of emboli. 2. Rash, improved Likely a drug reaction to the Plavix Patient denies symptoms of anaphylaxis Cont. Benadryl PRN and Hydrocortisone QID PRN Will continue to monitor for anaphylactic symptoms 3. Hypothyroidism Continue home Levothyroxine 4. Hx of Migraines Cont. Fioricet as needed 5. DVT/GI Prophylaxis: Pepcid/SCD's. 6. Dispo: F/U Neurology recommendations for D/C planning Code Status: full Discussed Condition With: patient, RN, family
--- NOTE | 2017-12-18 14:45 | P.PNCA ---
Subjective Interval history: Patient denies any chest pain, pressure, palpitations, dizziness, edema or shortness of breath. Patient states that she is starting to feel better and a little bit stronger. Medications and Allergies Allergies Allergy/AdvReac Type Severity Reaction Status Date / Time aspirin Allergy Swelling Verified 12/14/17 18:43 Home Medications Medication Instructions Recorded Confirmed Type levothyroxine [Synthroid] 50 mcg PO DAILY 12/14/17 12/14/17 History Active Medications: Active Medications Acetaminophen (Tylenol) 650 mg PO Q6H PRN PRN Reason: PAIN SCALE 1 TO 10 Last Admin: 12/15/17 08:20 Dose: 650 mg Acetaminophen/Butalbital/Caffeine (Fioricet 50-325-40) 1 tab PO Q6H PRN PRN Reason: HEADACHE Hydrocodone Bitart/Acetaminophen (Canaan 5/325) 1 tab PO Q4H PRN PRN Reason: PAIN 1-10 Last Admin: 12/17/17 14:52 Dose: 1 tab Al Hydroxide/Mg Hydroxide (Milk Of Kel Shetty) 30 ml PO Q12H PRN PRN Reason: Mild Constipation Albuterol (Duoneb Neb (Prn)) 1 ampul NEB Q2HR NEB PRN PRN Reason: WHEEZING Atorvastatin Calcium (Lipitor) 10 mg PO HS [facility] Last Admin: 12/17/17 21:02 Dose: 10 mg Bisacodyl (Dulcolax Supp) 10 mg RECTAL DAILY PRN PRN Reason: SEVERE CONSITIPATION Chlorhexidine Gluconate (Chlorhexidine 2% Cloth) 3 pack TOPICAL DAILY@0400 [facility] Stop: 12/20/17 03:59 Last Admin: 12/18/17 05:26 Dose: Not Given Chlorhexidine Gluconate (Chlorhexidine 2% Cloth) 3 pack TOPICAL DAILY@0400 PRN PRN Reason: Extra cloth needed Stop: 12/20/17 03:59 Clopidogrel Bisulfate (Plavix) 75 mg PO DAILY [facility] Last Admin: 12/18/17 08:55 Dose: 75 mg Diphenhydramine HCl (Benadryl) 25 mg PO Q6H PRN PRN Reason: ITCHING Famotidine (Pepcid Pf Inj) 20 mg IV.PUSH Q12HR [facility] Last Admin: 12/18/17 08:54 Dose: 20 mg Hydrocortisone Acetate (Hydrocortisone 1% Cream) 1 applicatio TOPICAL QID [facility] Last Admin: 12/18/17 08:52 Dose: 1 applicatio Hydroxyzine HCl (Atarax) 25 mg PO Q6H PRN PRN Reason: ITCHING Last Admin: 12/16/17 23:00 Dose: 25 mg Sodium Chloride (Ns Inj) 1,000 mls @ 70 mls/hr IV.CONT .[id number] PRN PRN Reason: npo Labetalol HCl (Trandate Inj) 10 mg IV.PUSH Q4H PRN PRN Reason: SBP> OR = 180, DBP> OR = 100 Lactulose (Lactulose Liq) 30 ml PO DAILY PRN PRN Reason: SEVERE CONSITIPATION Levothyroxine Sodium (Synthroid) 50 mcg PO DAILY@0600 [facility] Last Admin: 12/18/17 05:26 Dose: 50 mcg Menthol (Morris) 1 lozenge BUCCAL Q8H PRN PRN Reason: PAIN SCALE 1 TO 10 Last Admin: 12/16/17 17:32 Dose: 1 lozenge Ondansetron HCl (Zofran Inj) 4 mg IV.PUSH Q6H PRN PRN Reason: NAUSEA OR VOMITING Last Admin: 12/15/17 14:45 Dose: 4 mg Senna/Docusate Sodium (Khadra-Colace) 1 tab PO BID [facility] Last Admin: 12/18/17 08:54 Dose: 1 tab Sennosides (Senokot) 17.2 mg PO Q12H PRN PRN Reason: Moderate Constipation Sodium Chloride (Ns Flush) 2 ml IV.FLUSH BID [facility] Last Admin: 12/18/17 08:54 Dose: 2 ml Sodium Chloride (Ns Flush) 2 ml IV.FLUSH PRN PRN PRN Reason: FLUSH AFTER USING IV ACCESS Physical Exam Vital signs: Vital Signs 12/17/17 15:35 12/17/17 15:38 12/17/17 16:00 Temperature Pulse Rate 84 81 97 H Respiratory Rate 15 16 27 H Blood Pressure 110/62 114/63 Pulse Oximetry 100 100 97 12/17/17 17:00 12/17/17 18:00 12/17/17 19:00 Temperature Pulse Rate 90 89 93 H Respiratory Rate 20 24 111 H Blood Pressure Pulse Oximetry 99 100 97 12/17/17 20:00 12/18/17 00:00 12/18/17 04:00 Temperature 98.1 F 98.1 F 98.2 F Pulse Rate 98 H 72 68 Respiratory Rate 16 16 16 Blood Pressure 115/65 107/50 L 100/57 L Pulse Oximetry 98 95 96 12/18/17 07:39 12/18/17 08:06 Temperature Pulse Rate 69 73 Respiratory Rate 12 132 H Blood Pressure 102/58 L Pulse Oximetry 96 Intake & Output 12/17/17 12/18/17 12/18/17 18:59 06:59 18:59 Intake Total 720 / 720 240 / 240 Balance 720 / 720 240 / 240 Weight 71.4 kg Intake: Oral 720 / 720 240 / 240 Other: # Voids 4 2 Date of Last Bowel Movement 12/17/17 - Constitutional no acute distress - Routine HEENT Exam Head: Present: normocephalic Eye: Present: PERRL ENT: Present: mucous membranes moist - Routine Neck Exam Present: full ROM - Routine Respiratory Exam Present: CTA bilaterally - Routine Cardiovascular Exam Present: S1, S2. Absent: murmur, gallop, rubs - Routine Abdominal Exam Present: normoactive bowel sounds - Routine Extremities Exam Present: full ROM, pulses intact, normal capillary refill. Absent: cyanosis, clubbing, edema Comments: Patient still has left-sided weakness in upper and lower extremity. Strength is slowly improving. - Routine Skin Exam Present: intact - Routine Neurological Exam Present: oriented X3 - Detailed Neurological Exam: Coma Scale Eye Opening: Spontaneous Verbal Response: Oriented Motor Response: Obey commands Vernon Coma Scale Total: 15 - Routine Psychiatric Exam Present: normal affect Results 12/18/17 09:08 12/18/17 09:08 Cardiac Enzymes 12/17/17 12/18/17 Range/Units 04:19 09:08 AST 16 20 (15-37) U/L CBC 12/17/17 12/18/17 Range/Units 04:19 09:08 WBC 9.6 6.2 (4.0-11.0) th/mm3 RBC 4.28 3.72 L (4.00-5.30) mil/mm3 Hgb 13.6 12.4 (11.6-15.3) gm/dL Hct 40.3 34.7 L (35.0-46.0) % Plt Count 239 220 (150-450) th/mm3 Neut # (Auto) 8.8 H 3.1 (1.8-7.7) th/mm3 Lymph # (Auto) 0.7 L 2.4 (1.0-4.8) th/mm3 Imperial # (Auto) 0.1 0.4 (0.0-0.9) th/mm3 Eos # (Auto) 0.0 0.2 (0.0-0.4) th/mm3 Baso # (Auto) 0.0 0.0 (0.0-0.2) th/mm3 Comprehensive Metabolic Panel 12/17/17 12/18/17 Range/Units 04:19 09:08 Sodium 140 141 (136-145) meq/L Potassium 4.1 3.7 (3.5-5.1) meq/L Chloride 108 H 106 (98-107) meq/L Carbon Dioxide 21.9 26.4 (21.0-32.0) meq/L BUN 10 11 (7-18) mg/dL Creatinine 0.80 0.65 (0.50-1.00) mg/dL Calcium 8.8 D 8.6 (8.5-10.1) mg/dL AST 16 20 (15-37) U/L ALT 18 22 (10-53) U/L Alkaline Phosphatase 51 49 (45-117) U/L Total Protein 7.6 D 7.0 D (6.4-8.2) g/dL Albumin 3.3 L 3.0 L (3.4-5.0) g/dL Intake and Output 12/17/17 12/18/17 12/18/17 22:59 06:59 14:59 Intake Total 720 / 720 240 / 240 Balance 720 / 720 240 / 240 Intake: Oral 720 / 720 240 / 240 Other: # Voids 4 2 Date of Last Bowel Movement 12/17/17 Weight 71.4 kg Assessment and Plan - Assessment (1) Stroke Code(s): I63.9 - Cerebral infarction, unspecified Status: Acute (2) Acute right MCA stroke Code(s): I63.511 - Cerebral infarction due to unspecified occlusion or stenosis of right middle cerebral artery Status: Acute - Plan Sinus rhythm on monitor without episodes of arrhythmias. Continue to monitor patient on tele. GELY was done yesterday and showed no evidence of left atrial thrombus, no evidence of PFO, preserved left ventricular systolic function and trace tricuspid regurgitation; no evidence of cardiac source of emboli. 2D echo shows preserved LV EF 60-65%, trace tricuspid valve regurgitation and mild pulmonary valve regurgitation. Patient is slowly regaining strength in the left upper and lower extremities, overall condition is improving. Patient seen and evaluated by Dr. Welch who participated in care, management and decision-making. - Attending Attestation Patient seen and examined. I reviewed and agree with the evaluation and plan as presented. GELY with no evidence of cardiac source of emboli or PFO. Telemetry shows SR. Increase activity, PT. (1) Stroke Qualifiers: CVA mechanism: occlusion Precerebral and cerebral artery: middle cerebral artery Laterality of affected vessel: right Qualified Code(s): I63.511 - Cerebral infarction due to unspecified occlusion or stenosis of right middle cerebral artery
[2017-12-18 15:51] LABS: Homocysteine (Cardiovascular) 3.5 umol/L (<10.4)
[2017-12-18] MEDS: Acetaminophen 325 MG Tablet PO PRN (17:46)
[2017-12-19] MEDS: Chlorhexidine Gluconate 2% 1 Pack (2 Cloths) TOPICAL SCH (05:15)
[2017-12-19] MEDS: Levothyroxine 50 MCG Tablet PO SCH (05:27)
[2017-12-19 07:18] LABS: Baso % (Auto) 0.6 % (0.0-2.0); Eos # (Auto) 0.2 th/mm3 (0.0-0.4); Eos % (Auto) 3.9 % (0.0-4.0); Hematocrit 35.2 % (35.0-46.0); Hemoglobin 12.4 gm/dL (11.6-15.3); Lymph # (Auto) 2.4 th/mm3 (1.0-4.8); Lymph % (Auto) 40.3 % (9.0-44.0); Mean Corpuscular HGB Conc 35.1 % (32.0-36.0); Mean Corpuscular Hemoglobin 32.4 pg (27.0-34.0); Mean Corpuscular Volume 92.3 fL (80.0-100.0); Mean Platelet Volume 8.8 fL (7.0-11.0); Mono # (Auto) 0.4 th/mm3 (0.0-0.9); Mono % (Auto) 7.4 % (0.0-8.0); Neut # (Auto) 2.8 th/mm3 (1.8-7.7); Neut % (Auto) 47.8 % (16.0-70.0); Platelet Count 255 th/mm3 (150-450); Red Blood Count 3.81 mil/mm3 (4.00-5.30); Red Cell Distribution Width 12.5 % (11.6-17.2); White Blood Count 5.9 th/mm3 (4.0-11.0)
[2017-12-19 07:38] LABS: Albumin 3.1 g/dL (3.4-5.0); Anion Gap 9 meq/L (5-15); Aspartate Aminotransferase 16 U/L (15-37); Blood Urea Nitrogen 11 mg/dL (7-18); Calcium 8.8 mg/dL (8.5-10.1); Carbon Dioxide 27.1 meq/L (21.0-32.0); Chloride 105 meq/L (98-107); Glomerular Filtration Rate Greater Than 89 mL/min (>89); Glucose,Random 80 mg/dL (74-106); Potassium 3.7 meq/L (3.5-5.1); Sodium 141 meq/L (136-145)
[2017-12-19 07:43] LABS: Alanine Aminotransferase 21 U/L (10-53); Alkaline Phosphatase 49 U/L (45-117); Total Protein 6.7 g/dL (6.4-8.2)
[2017-12-19] MEDS: Famotidine PF Inj 20 MG/2 ML Vial IV.PUSH SCH (09:25)
[2017-12-19] MEDS: Senna/Docusate Sodium 8.6/50 MG Tablet PO SCH (09:25)
[2017-12-19] MEDS: Acetaminophen 325 MG Tablet PO PRN (10:01)
--- NOTE | 2017-12-19 11:12 | P.DS ---
Date of admission: 12/14/17 12:24 Primary care physician: PROVIDER NON STAFF Brief History from admission: This is a 27-year-old HF with PMHx of Hypothyroidism who was brought to the ER at [place] by her with a history of headache and weakness involving the left side of her body about 30 minutes prior to arrival. Patient was diagnosed to have an ischemic stroke. Head CT was negative for bleed. CTA brain showed occluded right MCA. In IR, patient underwent cerebral angiography and was found to have acute occlusion of prox right M2 branch. Successful clot extraction with re-established flow thru the previously occluded Chintan branch of right MCA. She was intubated for the procedure and was subsequently extubated successfully and transferred to PACU and managed by CC. Patient is now medically stable, and we have been asked to manage her medically. Patient reports significant right upper extremity and right lower extremity strength status post TPA. Patient has no current concerns. However does report that she has an aspirin allergy that causes hives. Patient is on OCP's for contraception, and on Synthroid for Hypothyroidism. Of note, family history of paternal grandmother with a CVA in her 70's. No family history of clotting disorder per family. DS: Diagnosis - Discharge Diagnosis (1) Hypothyroidism Status: Chronic (2) Acute right MCA stroke Status: Acute DS: Medications - Discharge Medications Prescriptions: atorvastatin [Lipitor] 10 mg PO HS #30 tab [id number] 1 tab PO Q6H PRN #12 tab PRN Reason: Headache clopidogrel [Plavix] 75 mg PO DAILY #30 tab hydrocortisone 1 applicatio TOPICAL QID #30 g DS: Summary Hospital Course: This is a 27-year-old HF with PMHx of Hypothyroidism admitted for IP management of Ischemic stroke involving Right MCA territory status post systemic TPA followed by embolectomy of Right MCA, managed by Neurology, HD#5 1. Acute Ischemic R MCA stroke LUE/LLE weakness improving with PT, D/C home with HH and PT, Rx written s/p systemic TPA followed by angioplasty and embolectomy right MCA territory MRA and CT HEAD 24hrs TPA WNL Echo Negative for thrombus, GELY on 12/17 Neg No family history of clotting disorder, however patient was on oral OCP's which could have contributed, D/C OCP Started on Plavix (ASA allergy) and statin (LDL 102) HemOnc consulted for coagulopathy work up, pending labs, F/U as outpatient in 2wks [facility] Reccs 12/15: Right MCA occlusion secondary to embolic event: Await GELY which is scheduled for 12/17/2017. Ultrasound Doppler of the lower extremities was negative for deep venous thromboses in either lower extremity. Prothrombotic workup has been ordered, I requested antiphospholipid antibodies, circulating lupus anticoagulant, protein C and protein S antigen and activity levels respectively , factor V Leiden mutation, prothrombin gene mutation, Antithrombin III levels, homocysteine level, CRP, CLEMENTE. I will add on any additional prothrombotic studies which may be needed. GELY 12/17: No evidence of left atrial thrombus. No evidence of patent foramen ovale. Preserved left ventricular systolic function. Trace tricuspid regurgitation. IMPRESSION: No evidence of cardiac source of emboli. - Time Spent with Patient Total time spent providing and/or coordinating discharge services: Greater than 30 minutes - Quality: Stroke Last date observed well: 12/14/17 Last time observed well: 09:45 - Quality: VTE Deep Vein Thrombosis/Pulmonary Embolism Present on Admission: Yes Exam Vital signs: Vital Signs 12/18/17 12:06 12/18/17 16:00 12/18/17 20:00 Temperature 98.0 F 98.1 F 98.3 F Pulse Rate 87 75 91 H Respiratory Rate 16 22 14 Blood Pressure 117/68 106/67 119/82 Pulse Oximetry 99 97 100 12/19/17 00:00 12/19/17 04:00 12/19/17 08:00 Temperature 98.3 F 98.4 F 98.2 F Pulse Rate 78 70 93 H Respiratory Rate 17 17 18 Blood Pressure 109/63 105/55 L 108/57 L Pulse Oximetry 98 98 100 Intake & Output 12/18/17 12/19/17 12/19/17 18:59 06:59 18:59 Intake Total 1440 / 1440 480 / 480 Balance 1440 / 1440 480 / 480 Weight 71.4 kg Intake: Oral 1440 / 1440 480 / 480 Other: # Voids 8 3 Date of Last Bowel Movement 12/18/17 12/18/17 # Bowel Movements 4 Narrative: GENERAL: Well-nourished female, in no acute distress, sitting comfortably in chair SKIN: Warm and dry. Fine MP diffuse rash on back, improved HEENT: Normocephalic. No scleral icterus. No injection or drainage. PERRLA, MOM. NECK: Supple, trachea midline. No JVD or lymphadenopathy. CARDIOVASCULAR: Regular rate and rhythm without murmurs, gallops, or rubs. RESPIRATORY: CTA x2 no accessory muscle use. GASTROINTESTINAL: Abdomen soft, non-tender, nondistended. MUSCULOSKELETAL: No cyanosis, or edema. BACK: Nontender without obvious deformity. No CVA tenderness. NEURO: Alert and oriented x3, right upper extremity and right lower extremity strength 4/5, left upper extremity and left lower extremity strength 5/5. Slightly slow fine finger movements. Speech is clear. Patient having some mild difficulty with word recall. Results Procedures completed during hospitalization: TPA 12/14 Labs on day of discharge: Labs from last 24 hours 12/19/17 12/19/17 12/15/17 06:02 06:02 13:38 WBC 5.9 RBC 3.81 L Hgb 12.4 Hct 35.2 MCV 92.3 MCH 32.4 MCHC 35.1 RDW 12.5 Plt Count 255 MPV 8.8 Neut % (Auto) 47.8 Lymph % (Auto) 40.3 Armstrong % (Auto) 7.4 Eos % (Auto) 3.9 Baso % (Auto) 0.6 Neut # (Auto) 2.8 Lymph # (Auto) 2.4 Armstrong # (Auto) 0.4 Eos # (Auto) 0.2 Baso # (Auto) 0.0 WBC Differential . Differential Comment Auto diff final Thrombin Time Lupus Anticoagulant Lupus Anticoag aPTT Dil Dimitri Viper Venom dRVVT Confirm Interp dRVVT Mix Pat/Norm 1:1 dRVVT Mix Interpret Hexagonal Phase Confirm Antithrombin III Activ 95 Sodium 141 Potassium 3.7 Chloride 105 Carbon Dioxide 27.1 Anion Gap 9 BUN 11 Creatinine 0.67 Estimated GFR Greater than 89 Random Glucose 80 Calcium 8.8 Total Bilirubin 0.3 AST 16 ALT 21 Alkaline Phosphatase 49 Total Protein 6.7 Albumin 3.1 L Homocysteine Cardiovas 12/15/17 12/15/17 13:38 13:38 WBC RBC Hgb Hct MCV MCH MCHC RDW Plt Count MPV Neut % (Auto) Lymph % (Auto) Armstrong % (Auto) Eos % (Auto) Baso % (Auto) Neut # (Auto) Lymph # (Auto) Armstrong # (Auto) Eos # (Auto) Baso # (Auto) WBC Differential Differential Comment Thrombin Time ND Lupus Anticoagulant Lupus Anticoag aPTT 34.0 Dil Dimitri Viper Venom 34.0 dRVVT Confirm Interp ND dRVVT Mix Pat/Norm 1:1 ND dRVVT Mix Interpret ND Hexagonal Phase Confirm ND Antithrombin III Activ Sodium Potassium Chloride Carbon Dioxide Anion Gap BUN Creatinine Estimated GFR Random Glucose Calcium Total Bilirubin AST ALT Alkaline Phosphatase Total Protein Albumin Homocysteine Cardiovas 3.5 - Impressions ITS Impressions Venous Doppler Study 12/14/17 00:00 CONCLUSION: 1. The study is negative for bilateral lower extremity deep venous thrombosis. Chest X-Ray 12/14/17 10:21 CONCLUSION: Negative examination. Head CTA 12/14/17 10:21 CONCLUSION: Abrupt occlusion of proximal right MCA branch which does appear amenable to intra-arterial stroke treatment if clinically appropriate. Neck CTA 12/14/17 10:21 CONCLUSION: Negative CTA Carotid. Cerebral Angiography 12/14/17 11:43 CONCLUSION: 1. Cerebral angiography confirms complete occlusion of an M2 branch of the right MCA territory. Complete rastafari of flow through this vessel following suction thrombectomy. TICI grade 3. Abdomen/Pelvis CT 12/15/17 00:00 CONCLUSION: 1. High density material layering within the gallbladder lumen consistent with sludge or tiny stones. 2. Bibasilar posterior pleural thickening. 3. No acute obstructive uropathy. Lower Extremity Ultrasound 12/15/17 00:00 CONCLUSION: 1. Negative examination with no evidence of pseudoaneurysm or hematoma. Head MRI 12/15/17 13:15 CONCLUSION: 1. Focal edema or possible ischemia involving the right globus pallidus and body of the right caudate. 2. Probable venous angioma involving the right cerebellar hemisphere area Head CT 12/15/17 14:01 CONCLUSION: 1. Negative CT Head non contrast. . Head MRA 12/15/17 14:01 CONCLUSION: 1. There is flow within the previously occluded right middle cerebral artery branch and mild residual narrowing at its origin. 2. Right cerebellar venous angioma. 3. Pain bilateral posterior communicating arteries. Discharge Plan - Discharge Disposition Patient Disposition: 01 Discharge Home - Discharge Condition Condition: Good - Discharge Order Discharge Orders: Discharge Order (Routine); Ordered 12/19/17 Ordered By: Vanessa Reid - Discharge Details Discharge Comment: F/u with HemOnc in 2-3wks, est. care with PCP in 2-3wks, # given, Dr. Reid - Physicians Team Primary Care Provider: NON STAFF,PROVIDER Attending Provider: Vanessa Reid Other Providers: Glenn Peter MD ; Aspen Welch MD ; Michael Lucio MD
--- NOTE | 2017-12-19 11:17 | P.PN ---
Subjective Interval history: Patient doing well. Reports improved strength with PT. Patient is tolerating p.o., voiding/stooling well. No other concerns. Physical Exam Vital signs: Vital Signs 12/18/17 12:06 12/18/17 16:00 12/18/17 20:00 Temperature 98.0 F 98.1 F 98.3 F Pulse Rate 87 75 91 H Respiratory Rate 16 22 14 Blood Pressure 117/68 106/67 119/82 Pulse Oximetry 99 97 100 12/19/17 00:00 12/19/17 04:00 12/19/17 08:00 Temperature 98.3 F 98.4 F 98.2 F Pulse Rate 78 70 93 H Respiratory Rate 17 17 18 Blood Pressure 109/63 105/55 L 108/57 L Pulse Oximetry 98 98 100 Intake & Output 12/18/17 12/19/17 12/19/17 18:59 06:59 18:59 Intake Total 1440 / 1440 480 / 480 Balance 1440 / 1440 480 / 480 Weight 71.4 kg Intake: Oral 1440 / 1440 480 / 480 Other: # Voids 8 3 Date of Last Bowel Movement 12/18/17 12/18/17 # Bowel Movements 4 Narrative: GENERAL: Well-nourished female, in no acute distress, sitting comfortably in chair SKIN: Warm and dry. Fine MP diffuse rash on back, improved HEENT: Normocephalic. No scleral icterus. No injection or drainage. PERRLA, MOM. NECK: Supple, trachea midline. No JVD or lymphadenopathy. CARDIOVASCULAR: Regular rate and rhythm without murmurs, gallops, or rubs. RESPIRATORY: CTA x2 no accessory muscle use. GASTROINTESTINAL: Abdomen soft, non-tender, nondistended. MUSCULOSKELETAL: No cyanosis, or edema. BACK: Nontender without obvious deformity. No CVA tenderness. NEURO: Alert and oriented x3, right upper extremity and right lower extremity strength 4/5, left upper extremity and left lower extremity strength 5/5. Slightly slow fine finger movements. Speech is clear. Patient having some mild difficulty with word recall. Results - Labs CBC & Chem 7: 12/19/17 06:02 12/19/17 06:02 Laboratory Results - last 24 hr 12/15/17 12/15/17 12/15/17 13:38 13:38 13:38 WBC RBC Hgb Hct MCV MCH MCHC RDW Plt Count MPV Neut % (Auto) Lymph % (Auto) Bradford % (Auto) Eos % (Auto) Baso % (Auto) Neut # (Auto) Lymph # (Auto) Bradford # (Auto) Eos # (Auto) Baso # (Auto) WBC Differential Differential Comment Thrombin Time ND Lupus Anticoagulant Lupus Anticoag aPTT 34.0 Dil Dimitri Viper Venom 34.0 dRVVT Confirm Interp ND dRVVT Mix Pat/Norm 1:1 ND dRVVT Mix Interpret ND Hexagonal Phase Confirm ND Antithrombin III Activ 95 Sodium Potassium Chloride Carbon Dioxide Anion Gap BUN Creatinine Estimated GFR Random Glucose Calcium Total Bilirubin AST ALT Alkaline Phosphatase Total Protein Albumin Homocysteine Cardiovas 3.5 12/19/17 12/19/17 06:02 06:02 WBC 5.9 RBC 3.81 L Hgb 12.4 Hct 35.2 MCV 92.3 MCH 32.4 MCHC 35.1 RDW 12.5 Plt Count 255 MPV 8.8 Neut % (Auto) 47.8 Lymph % (Auto) 40.3 Bradford % (Auto) 7.4 Eos % (Auto) 3.9 Baso % (Auto) 0.6 Neut # (Auto) 2.8 Lymph # (Auto) 2.4 Bradford # (Auto) 0.4 Eos # (Auto) 0.2 Baso # (Auto) 0.0 WBC Differential . Differential Comment Auto diff final Thrombin Time Lupus Anticoagulant Lupus Anticoag aPTT Dil Dimitri Viper Venom dRVVT Confirm Interp dRVVT Mix Pat/Norm 1:1 dRVVT Mix Interpret Hexagonal Phase Confirm Antithrombin III Activ Sodium 141 Potassium 3.7 Chloride 105 Carbon Dioxide 27.1 Anion Gap 9 BUN 11 Creatinine 0.67 Estimated GFR Greater than 89 Random Glucose 80 Calcium 8.8 Total Bilirubin 0.3 AST 16 ALT 21 Alkaline Phosphatase 49 Total Protein 6.7 Albumin 3.1 L Homocysteine Cardiovas Assessment and Plan - Assessment (1) Hypothyroidism Code(s): E03.9 - Hypothyroidism, unspecified Status: Chronic (2) Acute right MCA stroke Code(s): I63.511 - Cerebral infarction due to unspecified occlusion or stenosis of right middle cerebral artery Status: Acute - Plan This is a 27-year-old HF with PMHx of Hypothyroidism admitted for IP management of Ischemic stroke involving Right MCA territory status post systemic TPA followed by embolectomy of Right MCA, managed by Neurology, HD#6 1. Acute Ischemic R MCA stroke LUE/LLE weakness improving with PT, recc. home with PT s/p systemic TPA followed by angioplasty and embolectomy right MCA territory MRA and CT HEAD 24hrs TPA WNL Neurology following, appreciate assistance with management Echo Negative for thrombus, GELY on 12/17 Neg No family history of clotting disorder, however patient was on oral OCP's which could have contributed, D/C OCP Cont. Plavix (ASA allergy) and statin (LDL 102) [facility] consulted for coagulopathy work up, pending labs Per neurology, patient stable for discharge, I spoke Dr. Peter myself today. Neuro Reccs 12/16: Patient apparently allergic to aspirin within suggest Plavix. May require further change in blood thinner based on her hypercoagulable panel evaluation per hematology Statin for LDL goal of less than 100. Diet and exercise may be helpful in this respect Heme evaluation to exclude hypercoagulable state; appreciate evaluation Cardiology evaluation for GELY, event monitor; appreciate evaluation DC OCP DC planning after above evaluation complete follow-up in the outpatient setting [facility] Reccs 12/15: Right MCA occlusion secondary to embolic event: Await GELY which is scheduled for 12/17/2017. Ultrasound Doppler of the lower extremities was negative for deep venous thromboses in either lower extremity. Prothrombotic workup has been ordered, I requested antiphospholipid antibodies, circulating lupus anticoagulant, protein C and protein S antigen and activity levels respectively , factor V Leiden mutation, prothrombin gene mutation, Antithrombin III levels, homocysteine level, CRP, CLEMENTE. I will add on any additional prothrombotic studies which may be needed. Cards Reccs on 12/18: Patient seen and examined. I reviewed and agree with the evaluation and plan as presented. GELY with no evidence of cardiac source of emboli or PFO. Telemetry shows SR. Increase activity, PT. GELY 12/17: No evidence of left atrial thrombus. No evidence of patent foramen ovale. Preserved left ventricular systolic function. Trace tricuspid regurgitation. IMPRESSION: No evidence of cardiac source of emboli. 2. Rash, resolved Likely a drug reaction to the Plavix Patient denies symptoms of anaphylaxis Cont. Benadryl PRN and Hydrocortisone QID PRN Will continue to monitor for anaphylactic symptoms 3. Hypothyroidism Continue home Levothyroxine 4. Hx of Migraines Cont. Fioricet as needed 5. DVT/GI Prophylaxis: Pepcid/SCD's. 6. Dispo: Stable for discharge from medical standpoint as well as from neurology recommendations, negative cardiac workup. Consult submitted to case management to assist with home with PT. Will submit discharge orders once this has been set up. Code Status: full Discussed Condition With: patient, RN
--- NOTE | 2017-12-19 11:50 | P.DCO ---
- Diagnosis (1) Acute right MCA stroke Status: Acute - Physical Therapy Order: Evaluate and treat - Case Management Consult Yes - Certification I have seen patient Russell Marshall on 12/19/17. My clinical findings support the need for the requested home health care services because: Deconditioned with increased weakness I certify that my clinical findings support that this patient is homebound because: Unsteady gait/balance
--- NOTE | 2017-12-19 14:17 | P.PNCA ---
Subjective Interval history: Patient denies any chest pain, pressure, palpitations, dizziness, edema or shortness of breath. Medications and Allergies Allergies Allergy/AdvReac Type Severity Reaction Status Date / Time aspirin Allergy Swelling Verified 12/14/17 18:43 Home Medications Medication Instructions Recorded Confirmed Type levothyroxine [Synthroid] 50 mcg PO DAILY 12/14/17 12/14/17 History Active Medications: Active Medications Acetaminophen (Tylenol) 650 mg PO Q6H PRN PRN Reason: PAIN SCALE 1 TO 10 Last Admin: 12/19/17 10:01 Dose: 650 mg Acetaminophen/Butalbital/Caffeine (Fioricet 50-325-40) 1 tab PO Q6H PRN PRN Reason: HEADACHE Hydrocodone Bitart/Acetaminophen ([place] 5/325) 1 tab PO Q4H PRN PRN Reason: PAIN 1-10 Last Admin: 12/17/17 14:52 Dose: 1 tab Al Hydroxide/Mg Hydroxide (Milk Of Magndanya Liq) 30 ml PO Q12H PRN PRN Reason: Mild Constipation Albuterol (Duoneb Neb (Prn)) 1 ampul NEB Q2HR NEB PRN PRN Reason: WHEEZING Atorvastatin Calcium (Lipitor) 10 mg PO HS [facility] Last Admin: 12/18/17 20:23 Dose: 10 mg Bisacodyl (Dulcolax Supp) 10 mg RECTAL DAILY PRN PRN Reason: SEVERE CONSITIPATION Chlorhexidine Gluconate (Chlorhexidine 2% Cloth) 3 pack TOPICAL DAILY@0400 [facility] Stop: 12/20/17 03:59 Last Admin: 12/19/17 05:15 Dose: Not Given Chlorhexidine Gluconate (Chlorhexidine 2% Cloth) 3 pack TOPICAL DAILY@0400 PRN PRN Reason: Extra cloth needed Stop: 12/20/17 03:59 Clopidogrel Bisulfate (Plavix) 75 mg PO DAILY [facility] Last Admin: 12/19/17 09:25 Dose: 75 mg Diphenhydramine HCl (Benadryl) 25 mg PO Q6H PRN PRN Reason: ITCHING Famotidine (Pepcid Pf Inj) 20 mg IV.PUSH Q12HR [facility] Last Admin: 12/19/17 09:25 Dose: 20 mg Hydrocortisone Acetate (Hydrocortisone 1% Cream) 1 applicatio TOPICAL QID [facility] Last Admin: 12/19/17 09:24 Dose: 1 applicatio Hydroxyzine HCl (Atarax) 25 mg PO Q6H PRN PRN Reason: ITCHING Last Admin: 12/16/17 23:00 Dose: 25 mg Sodium Chloride (Ns Inj) 1,000 mls @ 70 mls/hr IV.CONT .[id number] PRN PRN Reason: npo Labetalol HCl (Trandate Inj) 10 mg IV.PUSH Q4H PRN PRN Reason: SBP> OR = 180, DBP> OR = 100 Lactulose (Lactulose Liq) 30 ml PO DAILY PRN PRN Reason: SEVERE CONSITIPATION Levothyroxine Sodium (Synthroid) 50 mcg PO DAILY@0600 [facility] Last Admin: 12/19/17 05:27 Dose: 50 mcg Menthol (Violet) 1 lozenge BUCCAL Q8H PRN PRN Reason: PAIN SCALE 1 TO 10 Last Admin: 12/16/17 17:32 Dose: 1 lozenge Ondansetron HCl (Zofran Inj) 4 mg IV.PUSH Q6H PRN PRN Reason: NAUSEA OR VOMITING Last Admin: 12/15/17 14:45 Dose: 4 mg Senna/Docusate Sodium (Khadra-Colace) 1 tab PO BID [facility] Last Admin: 12/19/17 09:25 Dose: Not Given Sennosides (Senokot) 17.2 mg PO Q12H PRN PRN Reason: Moderate Constipation Sodium Chloride (Ns Flush) 2 ml IV.FLUSH BID [facility] Last Admin: 12/19/17 09:26 Dose: 2 ml Sodium Chloride (Ns Flush) 2 ml IV.FLUSH PRN PRN PRN Reason: FLUSH AFTER USING IV ACCESS Physical Exam Vital signs: Vital Signs 12/18/17 16:00 12/18/17 20:00 12/19/17 00:00 Temperature 98.1 F 98.3 F 98.3 F Pulse Rate 75 91 H 78 Respiratory Rate 22 14 17 Blood Pressure 106/67 119/82 109/63 Pulse Oximetry 97 100 98 12/19/17 04:00 12/19/17 07:00 12/19/17 07:15 Temperature 98.4 F Pulse Rate 70 70 68 Respiratory Rate 17 27 H 26 H Blood Pressure 105/55 L Pulse Oximetry 98 12/19/17 07:30 12/19/17 07:45 12/19/17 08:00 Temperature 98.2 F Pulse Rate 74 73 70 Respiratory Rate 29 H 28 H 14 Blood Pressure 108/57 L Pulse Oximetry 100 12/19/17 08:06 12/19/17 08:15 12/19/17 08:30 Temperature Pulse Rate 65 66 70 Respiratory Rate 16 15 20 Blood Pressure 108/57 L Pulse Oximetry 12/19/17 08:45 12/19/17 09:34 12/19/17 09:45 Temperature Pulse Rate 69 89 108 H Respiratory Rate 17 24 16 Blood Pressure Pulse Oximetry 98 97 12/19/17 10:00 12/19/17 11:01 12/19/17 11:18 Temperature Pulse Rate 101 H 101 H 98 H Respiratory Rate 26 H 19 Blood Pressure Pulse Oximetry 98 12/19/17 11:30 12/19/17 11:45 12/19/17 12:00 Temperature 98.2 F Pulse Rate 93 H 101 H 98 H Respiratory Rate 16 16 22 Blood Pressure 124/76 Pulse Oximetry 12/19/17 12:06 12/19/17 12:15 12/19/17 12:30 Temperature Pulse Rate 101 H 98 H 95 H Respiratory Rate 26 H 19 18 Blood Pressure 124/76 Pulse Oximetry 99 98 12/19/17 12:45 Temperature Pulse Rate 96 H Respiratory Rate 19 Blood Pressure Pulse Oximetry 99 Intake & Output 12/18/17 12/19/17 12/19/17 18:59 06:59 18:59 Intake Total 1440 / 1440 480 / 480 Balance 1440 / 1440 480 / 480 Weight 71.4 kg Intake: Oral 1440 / 1440 480 / 480 Other: # Voids 8 3 Date of Last Bowel Movement 12/18/17 12/18/17 # Bowel Movements 4 Narrative: GENERAL: This is a well-nourished, well-developed patient, in no apparent distress. Patient speaks in clear complete sentences. Patient is pleasant. HEENT: Head is atraumatic and normocephalic. Neck is supple without lymphadenopathy and trachea is midline. No JVD or carotid bruits. CARDIOVASCULAR: Regular rate and rhythm without murmurs, gallops, or rubs. RESPIRATORY: Clear to auscultation. Breath sounds equal bilaterally. No wheezes , rales, or rhonchi. Chest wall is nontender. No use of accessory muscles. GASTROINTESTINAL: Abdomen is nontender, nondistended. Abdomen soft. No obvious pulsatile mass or bruit. No CVA tenderness. Strong femoral pulses bilaterally. Normal bowel sounds in all quadrants. MUSCULOSKELETAL: Patient is moving upper and lower extremities, left-sided weakness is still present but improving. No calf tenderness or edema, no Homans sign. Strong pulses in upper and lower extremities. NEUROLOGICAL: Patient is alert and oriented. Cranial nerves 2-12 are grossly intact. No focal deficits and speech is clear. SKIN: No rash and turgor is normal. Results 12/19/17 06:02 12/19/17 06:02 Cardiac Enzymes 12/18/17 12/19/17 Range/Units 09:08 06:02 AST 20 16 (15-37) U/L CBC 12/18/17 12/19/17 Range/Units 09:08 06:02 WBC 6.2 5.9 (4.0-11.0) th/mm3 RBC 3.72 L 3.81 L (4.00-5.30) mil/mm3 Hgb 12.4 12.4 (11.6-15.3) gm/dL Hct 34.7 L 35.2 (35.0-46.0) % Plt Count 220 255 (150-450) th/mm3 Neut # (Auto) 3.1 2.8 (1.8-7.7) th/mm3 Lymph # (Auto) 2.4 2.4 (1.0-4.8) th/mm3 Mcminn # (Auto) 0.4 0.4 (0.0-0.9) th/mm3 Eos # (Auto) 0.2 0.2 (0.0-0.4) th/mm3 Baso # (Auto) 0.0 0.0 (0.0-0.2) th/mm3 Comprehensive Metabolic Panel 12/18/17 12/19/17 Range/Units 09:08 06:02 Sodium 141 141 (136-145) meq/L Potassium 3.7 3.7 (3.5-5.1) meq/L Chloride 106 105 (98-107) meq/L Carbon Dioxide 26.4 27.1 (21.0-32.0) meq/L BUN 11 11 (7-18) mg/dL Creatinine 0.65 0.67 (0.50-1.00) mg/dL Calcium 8.6 8.8 (8.5-10.1) mg/dL AST 20 16 (15-37) U/L ALT 22 21 (10-53) U/L Alkaline Phosphatase 49 49 (45-117) U/L Total Protein 7.0 D 6.7 (6.4-8.2) g/dL Albumin 3.0 L 3.1 L (3.4-5.0) g/dL Intake and Output 12/18/17 12/19/17 12/19/17 22:59 06:59 14:59 Intake Total 1440 / 1440 480 / 480 Balance 1440 / 1440 480 / 480 Intake: Oral 1440 / 1440 480 / 480 Other: # Voids 8 3 Date of Last Bowel Movement 12/18/17 12/18/17 # Bowel Movements 4 Weight 71.4 kg Assessment and Plan - Assessment (1) Stroke Code(s): I63.9 - Cerebral infarction, unspecified Status: Acute (2) Acute right MCA stroke Code(s): I63.511 - Cerebral infarction due to unspecified occlusion or stenosis of right middle cerebral artery Status: Acute - Plan Sinus rhythm on monitor without episodes of arrhythmias. Continue to monitor patient on tele. Patient strength in the left upper and lower extremity is slowly increasing, overall condition is improving. Instructed patient on different types of exercises that she can do at home to improve her overall strength. Patient cleared to be discharged from cardiac standpoint. Patient seen and evaluated by Dr. Welch who participated in care, management and decision-making. - Attending Attestation Patient seen and examined. I reviewed and agree with the evaluation and plan as presented. Overall improved. No new cardiac issues. DC home as planned. (1) Stroke Qualifiers: CVA mechanism: occlusion Precerebral and cerebral artery: middle cerebral artery Laterality of affected vessel: right Qualified Code(s): I63.511 - Cerebral infarction due to unspecified occlusion or stenosis of right middle cerebral artery
[2017-12-19 16:34] VITALS: PULSE 92
[2017-12-19 16:46] VITALS: BP 129/66; RESP 18; TEMP 98.4; O2SAT 98
[2017-12-20 14:42] LABS: Factor V Leiden Mutation Negative (Negative); Protein C Antigen 115 % (70-150); Protein C Functional 114 % (70 - 150); Protein S Antigen Free 77 % (50 - 160)
== END 2017-12-19 16:36 | disposition home or self-care (01) ==
LOC: PHED 10:12 → PHEDH 12:24 → N03 12:35
PROVIDERS: ADMIT Family Medicine; ATTEND Family Medicine